=== PATIENT | female | born 1935 | race Caucasian/White ===

== ENCOUNTER → 2018-03-05 09:52 | Outpatient (CLI) | payer MEDICARE, SELFPAY ==
[2018-03-05 11:41] LABS: AST(SGOT) 19 U/L (15-37); Alanine Aminotransfer ALT/SGPT 15 U/L (13-56); Albumin, Serum 3.7 g/dL (3.2-5.0); Alkaline Phosphatase 67 U/L (45-117); Bilirubin, Direct 0.32 mg/dL (0.00-0.30); Cholesterol 133 mg/dL (200); Globulin 3.7 g/dL (2.2-4.2); High Density Lipoprotein 49 mg/dL; Protein, Total 7.4 g/dL (6.4-8.2); Triglycerides 89 mg/dL; Very Low Density Lipoprotein 18 mg/dL (5-40)
== END ==
PROVIDERS: Family Provider Family Medicine; PCP Family Medicine; Visit Provider Physician Assistant Medical
DX: E78.5 Hyperlipidemia, unspecified (principal); Z79.899 Other long term (current) drug therapy
CPT/HCPCS: 36415; 80061; 80076

== ENCOUNTER → 2018-04-23 06:53 | Outpatient (CLI) | payer MEDICARE, SELFPAY ==
--- NOTE | 2018-04-23 10:36 | STRESSREP ---
Stress Test Report Date: 04/23/2018 Procedure: Exercise tolerance test/imaging study Indications: CAD; status post CABG Consent: Per the patient Procedure: The patient exercised on a Francisco Javier protocol for 3 minutes and 14 seconds completing Stage I and 14 seconds of Stage II achieving a peak heart rate of 153 bpm (109 % predicted maximal heart rate) with a peak blood pressure 182/74 mmHg and a peak MET capacity of 4 METs. The baseline ECG demonstrated normal sinus rhythm; nonspecific ST segment abnormality. The peak exercise ECG demonstrated continued nonspecific ST segment abnormality. There were occasional PVCs pretest and during exercise and occasional PACs and PVCs during recovery. The functional capacity was considered decreased. There was no complaint of chest discomfort during exercise or recovery. The examination was discontinued secondary to dyspnea and leg discomfort. Impression: 1. Technically adequate (percent predicted maximal heart rate greater than 85%) exercise tolerance test 2. Peak exercise ECG continued nonspecific ST segment abnormality 3. There were occasional PVCs pretest and during exercise and occasional PACs and PVCs during recovery. 4. Nuclear images pending Myocardial perfusion imaging study: Technique: The patient was injected with 11 mCi of technetium 99m Cardiolite and subsequently rest SPECT Cardiolite nuclear imaging was obtained in the horizontal long, vertical long, and short axis views. The patient exercised on a Francisco Javier protocol for 3 minutes and 14 seconds minutes completing Stage I and 14 seconds of Stage II achieving a peak heart rate of 153 bpm (109 % predicted maximal heart rate) with a peak blood pressure 182/74 mmHg and a peak MET capacity of 4 METs. The patient was injected with 36 mCi of technetium 99m Cardiolite and subsequently stress SPECT Cardiolite nuclear imaging was obtained in the horizontal long, vertical long, and short axis views. A gated Cardiolite study at peak stress was obtained. Interpretation: Rest and stress SPECT Cardiolite nuclear imaging status post realignment, normalization, and attenuation correction, demonstrates the appearance of relative uniform tracer uptake and myocardial perfusion appearing within normal limits. There is end systolic thickening and brightening. The gated Cardiolite study demonstrates myocardial thickening and inward wall motion. The reported LVEF is 85 %. Impression: 1. Rest and stress SPECT Cardiolite nuclear imaging demonstrate relative uniform tracer uptake and myocardial perfusion appearing within normal limits. 2. The gated Cardiolite study reports an LVEF of 85 %. This note was generated with [employer] software. It may contain incorrect words, spelling, and punctuation that were not noted in checking the note before signing.
== END ==
PROVIDERS: Family Provider Family Medicine; PCP Family Medicine; Visit Provider Physician Assistant Medical
DX: I25.10 Atherosclerotic heart disease of native coronary artery without angina pectoris (principal); I10 Essential (primary) hypertension; E78.00 Pure hypercholesterolemia, unspecified
CPT/HCPCS: 78452; 93017; A9500; A4216

== ENCOUNTER → 2018-05-23 10:57 | Outpatient (CLI) | payer MEDICARE, SELFPAY ==
[2018-05-23 12:46] LABS: Anion Gap 4 (5-15); BUN 16 mg/dL (7-18); BUN/Creat Ratio 17.9 RATIO (10-20); Calcium,Total 9.6 mg/dL (8.5-10.1); Chloride 103 mmol/L (98-107); Creatinine, Serum 0.89 mg/dL (0.55-1.02); EST Glomerular Filtration Rate 64 mL/min (>60); Est Glom Filt Rate - Afr Amer 78 mL/min (>60); Glucose 85 mg/dL (74-106); Potassium 3.9 mmol/L (3.5-5.1); Sodium Level 137 mmol/L (136-145)
[2018-05-23 12:47] LABS: Microalbumin,Random Urine 5.5 mg/L (NO RANGE EST.); Microalbumin:Creatinine Ratio 9.6 mg/g CRE (<30 mg/g CRE)
== END ==
PROVIDERS: Family Provider Family Medicine; PCP Family Medicine; Visit Provider Family Medicine
DX: I25.10 Atherosclerotic heart disease of native coronary artery without angina pectoris (principal)
CPT/HCPCS: 36415; 80048; 82043; 82570

== ENCOUNTER → 2018-06-07 10:12 | Outpatient (CLI) | payer MEDICARE, SELFPAY | PROVIDERS: Family Provider Family Medicine; PCP Family Medicine; Visit Provider Family Medicine | DX: Z12.31 Encounter for screening mammogram for malignant neoplasm of breast (principal) | CPT/HCPCS: 77063; 77067 ==

== ENCOUNTER 2019-03-13 13:45 | Outpatient (RCR) | payer MEDICARE, SELFPAY ==
[2019-02-20 15:02] VITALS: BP 140/96; PULSE 56; RESP 16; TEMP 36.2; BMI 23.8
--- NOTE | 2019-02-20 17:10 | RAD_ITS ---
STUDY: X-RAY - RIGHT TIBIA AND FIBULA REASON FOR EXAM: Female, 83 years old. Right leg pain after fall TECHNIQUE: 2 view(s) of the tibia and fibula were obtained. COMPARISON: None. FINDINGS: Lying anterior to the distal tibial diaphysis, irregularity and induration of the subcu soft tissues with apparent laceration without foreign body. Osseous structures intact. RAD/Tibia & Fibula 2 Views IMPRESSION: Soft tissue injury without fracture. Electronically Signed: Ganga Fernandez MD at 12:19 EDT Tel , Service support ,
[2019-02-20 17:18] LABS: Absolute Lymphocyte Count 2.01 X10^3/ul (0.83-4.51); Absolute Neutrophil Count 4.1 X10^3/uL (2.0-7.7); Basophil# 0.01 X10^3/uL; Basophil% 0.1 % (0-1); Eosinophil# 0.11 X10^3/uL; Eosinophils% 1.6 % (0-5); Hematocrit 38.3 % (37-47); Hemoglobin 12.7 g/dl (12.0-15.0); Lymphocyte # 2.01 X10^3/ul (4.0); Lymphocyte % 29.7 % (19-41); Mean Corp Hgb Conc 33.2 g/gl (32-36); Mean Corpuscular Hgb 31.7 pg (27.0-32.0); Mean Corpuscular Volume 95.5 fL (81-99); Mean Platelet Vol. 10.2 fl (6.2-12.0); Monocyte% 7.4 % (0-10); Neutrophil # 4.13 X10^3/uL (2.7-7.7); Neutrophil % 61.1 % (47-70); Platelet Count 269 K/mm3 (150-450); RBC Distribution Width CV 13.2 % (11.6-14.6); RBC Distribution Width SD 46.2 fl (35.1-43.9); Red Blood Count 4.01 M/mm3 (4.2-5.4); White Blood Count 6.8 K/mm3 (4.4-11.0)
[2019-02-20 17:20] LABS: POSITIVE COUNT NO; POSITIVE DIFFERENTIAL NO; POSITIVE MORPHOLOGY NO
[2019-02-20 17:45] LABS: Erythrocyte Sedimentation Rate 21 mm/hr (0-30)
[2019-02-20 18:12] LABS: Anion Gap 5 (5-15); BUN 18 mg/dL (7-18); CRP < 2.90 mg/L (0.0-3.0); Calcium,Total 9.1 mg/dL (8.5-10.1); Chloride 104 mmol/L (98-107); EST Glomerular Filtration Rate 57 mL/min (>60); Est Glom Filt Rate - Afr Amer 69 mL/min (>60); Glucose 97 mg/dL (74-106); Potassium 4.3 mmol/L (3.5-5.1); Prealbumin 19.4 mg/dL (20.0-40.0); Sodium Level 138 mmol/L (136-145)
--- NOTE | 2019-02-21 16:51 | PCM.WC.HP ---
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 Status: Acute Current Visit: Yes Code(s): L97.912 - Non-pressure chronic ulcer of unspecified part of right lower leg with fat layer exposed Comment: s/p fall (2) Bilateral lower extremity edema Status: Acute Current Visit: Yes Code(s): R60.0 - Localized edema (3) Atherosclerotic heart disease of [place] coronary artery without angina pectoris Status: Chronic Current Visit: No Qualifiers: Code(s): I25.10 - Atherosclerotic heart disease of [place] coronary artery without angina pectoris Comment: 07/26/07 CABGx5, HELTON, LAD bridge diagonal, SVG to RCA and a sequential SVG to the Lateral Cx bridge high lateral Cx. (4) Essential (primary) hypertension Status: Chronic Current Visit: No Code(s): I10 - Essential (primary) hypertension (5) HLD (hyperlipidemia) Status: Chronic Current Visit: No Qualifiers: Code(s): E78.5 - Hyperlipidemia, unspecified History of Present Illness Date of Service: 02/20/19 Chief Complaint: Nonhealing ulcer to right lower extremity History of Wound: This is an 83-year-old white female who presents to the wound healing center today with complaint of nonhealing ulcer to right lower extremity. She presents with her and her daughter who is a nurse. She has a past medical history as listed above. The patient states that initially while she was in [place], she fell and hit the right lower extremity on the side of her bed on 01-25-19. At one point the site was sutured after she went to the emergency department. She states that she recently followed up with her primary care provider and they thought the site was infected so they placed her on Keflex and referred her to the wound healing center. She denies having cultures and/or x-rays or blood work done. She denies any systemic signs of infection, however she does note that the area surrounding the wound is somewhat reddened and that there is a foul smell to the area as well. The patient otherwise denies any fever, chills, nausea, vomiting, shortness of breath, chest pain or pressure, palpitations, orthopnea, lower extremity edema, syncope or presyncopal episodes. Past Medical History Past Medical History: Chronic Problems (Last Updated 03/12/18 @ 09:58 by SABIHA De Leon) Nonrheumatic mitral valve insufficiency (Chronic) Atherosclerotic heart disease of [place] coronary artery without angina pectoris (Chronic) 07/26/07 CABGx5, HELTON, LAD bridge diagonal, SVG to RCA and a sequential SVG to the Lateral Cx bridge high lateral Cx. Essential (primary) hypertension (Chronic) HLD (hyperlipidemia) (Chronic) Allergies/Adverse Reactions: Allergies No Known Allergies Allergy (Verified 03/12/18 09:30) Home Medications: Ambulatory Orders Medication Instructions Recorded aspirin 81 mg tablet,delayed 81 mg PO QDAY 03/04/18 release nitroglycerin 0.4 mg sublingual 0.4 mg SUBLINGUAL Q5M PRN 03/04/18 tablet calcium carbonate 600 mg calcium 600 mg PO ONCE tab 03/12/18 (1,500 mg) tablet folic acid 400 mcg tablet 0.4 mg PO QDAY #25 tab 03/12/18 metoprolol tartrate 25 mg tablet 25 mg PO BID #180 tab 08/20/18 ramipril 10 mg capsule 10 mg PO QDAY #90 cap 08/20/18 rosuvastatin 40 mg tablet 40 mg PO QDAY #90 tab 08/20/18 Smoking Status: Never smoker Review of Systems Constitutional: Denies: Chills, Fever, Weight Change Eyes: Denies: Pain, Vision Change HEENT: Denies: Difficulty Hearing, Difficulty Swallowing, Sinus Congestion Cardiovascular: Denies: Chest Pain, Palpitations Respiratory: Denies: Cough, Shortness of Breath Gastrointestinal: Denies: Diarrhea, Nausea, Vomiting Genitourinary: Denies: Dysuria, Hematuria Skin: Reports: Wounds - See HPI Endocrine: Denies: Heat/ Cold Intolerance, Polydipsia, Polyuria Hematologic/ Lymphatic: Denies: Easy Bruising, Easy Bleeding - Physical Exam Vital Signs Temp Pulse Resp BP 97.1 F L 56 L 16 140/96 H 02/20/19 15:02 02/20/19 15:02 02/20/19 15:02 02/20/19 15:02 General: Alert, Oriented x3, Cooperative, No apparent distress HEENT: Atraumatic, PERRLA, EOMI Oral: Moist Mucosa Neck: Supple, No JVD, Negative Carotid Bruits Lungs: Clear to auscultation, Normal air movement, No rhonchi, No wheeze, No rales Cardiovascular: Regular rate, Regular Rhythm, Normal S1, Normal S2, No murmurs Abdomen: Soft, Non Tender Extremities: No clubbing, No cyanosis, Capillary Refill Less than 3 Seconds, Diminished Peripheral Pulses - Diminished dorsal pedis pulses, Edema - +1 bilateral lower extremity edema Skin: Ulcer/ Wound - Ulceration to right anterior lower extremity with large amount of adherent slough in the center of the wound bed, 0.5 cm of erythema around the periwound bed edges, no fluctuance noted, some tenderness to palpation, foul odor present on exam as well. Wound Measurements and Assessment WC - Nurse 1 - General Ulcer Measurement Start: 02/20/19 15:01 Freq: Status: Active Protocol: Activity Type Activity Date Activity User E-Sign Co-Sign Detail Recorded Client Recorded Date Recorded By Document 02/20/19 15:02 DV [id number] 02/20/19 15:50 DV 02/20/19 15:02 Wound Center Nurse 1 [Ulcer Assessment] #1 Right Gil -Combined with other wound No -Current Size (cm) - Length 4.1 -Current Size (cm) - Width 3.0 -Current Size (cm) - Depth 0.3 -Total Square Cm 12.30 -Date of Last Picture (Recall this 02/20/19 field) -Photo Taken Yes -Epithelialization None Present -Tunneling No -Undermining/Tunneling No -Circular Undermining No -Classification - Thickness Full Thickness without Exposed Support Structure -Exudate Amt Large -Exudate Type Yellow/Green -Wound Margin Indistinct, Non -Visible -Granulation Amt None Present (0 %) -Granulation Quality N/A -Slough/Fibrin Yes -Necrosis Amt Large (67-100%) -Necrotic Tissue Type Adherent Slough -Structure Exposed Fat Layer Exposed None/Limited to Skin Breakdown -Texture ([place]-wound Skin Appearance) Assessed Localized Edema Scarring -Moisture ([place]-wound Skin Appearance Assessed ) Weeping -Color ([place]-wound Skin Appearance) Assessed Erythema -Temperature ([place]-wound Skin No Abnormality Appearance) (Pt Warm) -Tenderness on Palpation ([place]-wound No Skin Appearance) -Ulcer Cleansing Rinsed/ Irrigated with Saline -Foul Odor after Cleansing No -Anesthetic Used 4% Lidocaine Solution [Edema Assessment] -Lower Limb Edema Present Yes -Right Calf (cm) 36.0 -Right Ankle (cm) 23.5 -Left Calf (cm) 35.2 -Left Ankle (cm) 22.1 WC - Nurse 2 - General Ulcer CM Notes Start: 02/20/19 15:01 Freq: Status: Active Protocol: Activity Type Activity Date Activity User E-Sign Co-Sign Detail Recorded Client Recorded Date Recorded By Document 02/20/19 16:02 AN [id number] 02/20/19 16:13 AN 02/20/19 16:02 Wound Center Nurse 2 [Procedure/Treatment] #1 Right Gil -Time 16:02 -Correct Patient Yes -Correct Side, Site, Position Yes -Correct Procedure Yes -Procedure Performed Yes -Type of Procedure Debridement -Clinical Debridement Subcutaneous -Post Debridement Size (cm) - Length 2.2 -Post Debridement Size (cm) - Width 5.0 -Post Debridement Size (cm) - Depth 0.9 -Total Square Cm 11.00 -Wound/Ulcer Outcome Not Healed [See Physician Procedure note for Specifics] Pain Scale: 0-10 Numeric [Pain] -Is Patient Pain Free? Yes Musculoskeletal: No Muscle Wasting Neurological: Neuro grossly intact Psych/Mental Status: Normal Affect, Appropriate, Alert and oriented to time, place, person, mood and affect Debridement Note Post-Debridement Measurements/Treatment WC - Nurse 2 - General Ulcer CM Notes Start: 02/20/19 15:01 Freq: Status: Active Protocol: Activity Type Activity Date Activity User E-Sign Co-Sign Detail Recorded Client Recorded Date Recorded By Document 02/20/19 16:02 AN [email or web address] 02/20/19 16:13 AN 02/20/19 16:02 Wound Center Nurse 2 #1 Right Gil -Time 16:02 -Correct Patient Yes -Correct Side, Site, Position Yes -Correct Procedure Yes -Procedure Performed Yes -Type of Procedure Debridement -Clinical Debridement Subcutaneous -Post Debridement Size (cm) - Length 2.2 -Post Debridement Size (cm) - Width 5.0 -Post Debridement Size (cm) - Depth 0.9 -Total Square Cm 11.00 -Wound/Ulcer Outcome Not Healed Pain Scale: 0-10 Numeric Is Patient Pain Free? Yes Wound debrided: Right anterior lower extremity nonhealing ulcer Type of Debridement: Excisional debridement Anesthesia Used: 5% Lidocaine Gel Depth: in the subcutaneous layer Percentage of wound debrided: 100 Instrument Used: 7mm curette Tissue Removed: Slough and devitalized tissue Severity: Fat Layer Exposed Amount of bleeding with debridement: Mild Bleeding Controlled with: Pressure Patient tolerated procedure well Assessment/Plan Clinical Impression(s) from Imaging Studies Tibia/Fibula X-Ray 02/20/19 17:10 IMPRESSION: Soft tissue injury without fracture. Electronically Signed: Ganga Fernandez MD at 12:19 EDT Tel , Service support , Active Problems (Last Updated 03/12/18 @ 09:58 by SABIHA De Leon) 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 (Acute) s/p fall Bilateral lower extremity edema (Acute) Assessment: Nonhealing ulcer to right lower extremity status post fall on 01/25/2019. Decreased dorsal pedis pulses. Bilateral lower extremity edema Plan: The patient was seen and examined at the wound center today and was updated on the plan of care. A subcutaneous debridement was performed today. The patient tolerated the procedure well. The patients wound care will consist of: Applying Santyl cover with gauze and double Tubigrip for compression. Santyl was chosen due to the large amount of adherent slough present. Wound cultures were collected. Baseline bloodwork ordered. Vascular studies ordered. X-ray ordered as well as this was initially caused by a fall. Patient educated on the importance of diet on wound healing and instructed to increase protein and vitamin C intake. Patient verbalized understanding. Patient will follow up at wound healing center in one week or sooner if needed. Patient and family members were educated on signs of cellulitis and systemic infection that require urgent medical attention and to go to the emergency department if these symptoms occur. This note was generated with [employer] dictation software. It may contain incorrect words, spelling, and punctuation that were not noted in checking the note before signing. Code Visit Office Visits / Consults: [id number] OV L4 Est 111xxx-113xx: [id number] Renata subq tissue 20 sq cm/<
--- NOTE | 2019-02-21 16:57 | HP.PCM_ITS ---
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 Status: Acute Current Visit: Yes Code(s): L97.912 - Non-pressure chronic ulcer of unspecified part of right lower leg with fat layer exposed Comment: s/p fall (2) Bilateral lower extremity edema Status: Acute Current Visit: Yes Code(s): R60.0 - Localized edema (3) Atherosclerotic heart disease of [place] coronary artery without angina pectoris Status: Chronic Current Visit: No Qualifiers: Code(s): I25.10 - Atherosclerotic heart disease of [place] coronary artery without angina pectoris Comment: 07/26/07 CABGx5, [place], LAD bridge diagonal, SVG to RCA and a sequential SVG to the Lateral Cx bridge high lateral Cx. (4) Essential (primary) hypertension Status: Chronic Current Visit: No Code(s): I10 - Essential (primary) hypertension (5) HLD (hyperlipidemia) Status: Chronic Current Visit: No Qualifiers: Code(s): E78.5 - Hyperlipidemia, unspecified History of Present Illness Date of Service: 02/20/19 Chief Complaint: Nonhealing ulcer to right lower extremity History of Wound: This is an 83-year-old white female who presents to the wound healing center today with complaint of nonhealing ulcer to right lower extremity. She presents with her and her daughter who is a nurse. She has a past medical history as listed above. The patient states that initially while she was in [place], she fell and hit the right lower extremity on the side of her bed on 01-25-19. At one point the site was sutured after she went to the emergency department. She states that she recently followed up with her primary care provider and they thought the site was infected so they placed her on Keflex and referred her to the wound healing center. She denies having cultures and/or x-rays or blood work done. She denies any systemic signs of infection, however she does note that the area surrounding the wound is somewhat reddened and that there is a foul smell to the area as well. The patient otherwise denies any fever, chills, nausea, vomiting, shortness of breath, chest pain or pressure, palpitations, orthopnea, lower extremity edema, syncope or presyncopal episodes. Past Medical History Past Medical History: Chronic Problems (Last Updated 03/12/18 @ 09:58 by SABIHA De Leon) Nonrheumatic mitral valve insufficiency (Chronic) Atherosclerotic heart disease of [place] coronary artery without angina pectoris (Chronic) 07/26/07 CABGx5, HELTON, LAD bridge diagonal, SVG to RCA and a sequential SVG to the Lateral Cx bridge high lateral Cx. Essential (primary) hypertension (Chronic) HLD (hyperlipidemia) (Chronic) Allergies/Adverse Reactions: Allergies No Known Allergies Allergy (Verified 03/12/18 09:30) Home Medications: Ambulatory Orders Medication Instructions Recorded aspirin 81 mg tablet,delayed 81 mg PO QDAY 03/04/18 release nitroglycerin 0.4 mg sublingual 0.4 mg SUBLINGUAL Q5M PRN 03/04/18 tablet calcium carbonate 600 mg calcium 600 mg PO ONCE tab 03/12/18 (1,500 mg) tablet folic acid 400 mcg tablet 0.4 mg PO QDAY #25 tab 03/12/18 metoprolol tartrate 25 mg tablet 25 mg PO BID #180 tab 08/20/18 ramipril 10 mg capsule 10 mg PO QDAY #90 cap 08/20/18 rosuvastatin 40 mg tablet 40 mg PO QDAY #90 tab 08/20/18 Smoking Status: Never smoker Review of Systems Constitutional: Denies: Chills, Fever, Weight Change Eyes: Denies: Pain, Vision Change HEENT: Denies: Difficulty Hearing, Difficulty Swallowing, Sinus Congestion Cardiovascular: Denies: Chest Pain, Palpitations Respiratory: Denies: Cough, Shortness of Breath Gastrointestinal: Denies: Diarrhea, Nausea, Vomiting Genitourinary: Denies: Dysuria, Hematuria Skin: Reports: Wounds - See HPI Endocrine: Denies: Heat/ Cold Intolerance, Polydipsia, Polyuria Hematologic/ Lymphatic: Denies: Easy Bruising, Easy Bleeding - Physical Exam Vital Signs Temp Pulse Resp BP 97.1 F L 56 L 16 140/96 H 02/20/19 15:02 02/20/19 15:02 02/20/19 15:02 02/20/19 15:02 General: Alert, Oriented x3, Cooperative, No apparent distress HEENT: Atraumatic, PERRLA, EOMI Oral: Moist Mucosa Neck: Supple, No JVD, Negative Carotid Bruits Lungs: Clear to auscultation, Normal air movement, No rhonchi, No wheeze, No rales Cardiovascular: Regular rate, Regular Rhythm, Normal S1, Normal S2, No murmurs Abdomen: Soft, Non Tender Extremities: No clubbing, No cyanosis, Capillary Refill Less than 3 Seconds, Diminished Peripheral Pulses - Diminished dorsal pedis pulses, Edema - +1 bilateral lower extremity edema Skin: Ulcer/ Wound - Ulceration to right anterior lower extremity with large amount of adherent slough in the center of the wound bed, 0.5 cm of erythema around the periwound bed edges, no fluctuance noted, some tenderness to palpation, foul odor present on exam as well. Wound Measurements and Assessment WC - Nurse 1 - General Ulcer Measurement Start: 02/20/19 15:01 Freq: Status: Active Protocol: Activity Type Activity Date Activity User E-Sign Co-Sign Detail Recorded Client Recorded Date Recorded By Document 02/20/19 15:02 DV [id number] 02/20/19 15:50 DV 02/20/19 15:02 Wound Center Nurse 1 [Ulcer Assessment] #1 Right Gil -Combined with other wound No -Current Size (cm) - Length 4.1 -Current Size (cm) - Width 3.0 -Current Size (cm) - Depth 0.3 -Total Square Cm 12.30 -Date of Last Picture (Recall this 02/20/19 field) -Photo Taken Yes -Epithelialization None Present -Tunneling No -Undermining/Tunneling No -Circular Undermining No -Classification - Thickness Full Thickness without Exposed Support Structure -Exudate Amt Large -Exudate Type Yellow/Green -Wound Margin Indistinct, Non -Visible -Granulation Amt None Present (0 %) -Granulation Quality N/A -Slough/Fibrin Yes -Necrosis Amt Large (67-100%) -Necrotic Tissue Type Adherent Slough -Structure Exposed Fat Layer Exposed None/Limited to Skin Breakdown -Texture ([place]-wound Skin Appearance) Assessed Localized Edema Scarring -Moisture ([place]-wound Skin Appearance Assessed ) Weeping -Color ([place]-wound Skin Appearance) Assessed Erythema -Temperature ([place]-wound Skin No Abnormality Appearance) (Pt Warm) -Tenderness on Palpation ([place]-wound No Skin Appearance) -Ulcer Cleansing Rinsed/ Irrigated with Saline -Foul Odor after Cleansing No -Anesthetic Used 4% Lidocaine Solution [Edema Assessment] -Lower Limb Edema Present Yes -Right Calf (cm) 36.0 -Right Ankle (cm) 23.5 -Left Calf (cm) 35.2 -Left Ankle (cm) 22.1 WC - Nurse 2 - General Ulcer CM Notes Start: 02/20/19 15:01 Freq: Status: Active Protocol: Activity Type Activity Date Activity User E-Sign Co-Sign Detail Recorded Client Recorded Date Recorded By Document 02/20/19 16:02 AN [id number] 02/20/19 16:13 AN 02/20/19 16:02 Wound Center Nurse 2 [Procedure/Treatment] #1 Right Gil -Time 16:02 -Correct Patient Yes -Correct Side, Site, Position Yes -Correct Procedure Yes -Procedure Performed Yes -Type of Procedure Debridement -Clinical Debridement Subcutaneous -Post Debridement Size (cm) - Length 2.2 -Post Debridement Size (cm) - Width 5.0 -Post Debridement Size (cm) - Depth 0.9 -Total Square Cm 11.00 -Wound/Ulcer Outcome Not Healed [See Physician Procedure note for Specifics] Pain Scale: 0-10 Numeric [Pain] -Is Patient Pain Free? Yes Musculoskeletal: No Muscle Wasting Neurological: Neuro grossly intact Psych/Mental Status: Normal Affect, Appropriate, Alert and oriented to time, place, person, mood and affect Debridement Note Post-Debridement Measurements/Treatment WC - Nurse 2 - General Ulcer CM Notes Start: 02/20/19 15:01 Freq: Status: Active Protocol: Activity Type Activity Date Activity User E-Sign Co-Sign Detail Recorded Client Recorded Date Recorded By Document 02/20/19 16:02 AN [id number] 02/20/19 16:13 AN 02/20/19 16:02 Wound Center Nurse 2 #1 Right Gil -Time 16:02 -Correct Patient Yes -Correct Side, Site, Position Yes -Correct Procedure Yes -Procedure Performed Yes -Type of Procedure Debridement -Clinical Debridement Subcutaneous -Post Debridement Size (cm) - Length 2.2 -Post Debridement Size (cm) - Width 5.0 -Post Debridement Size (cm) - Depth 0.9 -Total Square Cm 11.00 -Wound/Ulcer Outcome Not Healed Pain Scale: 0-10 Numeric Is Patient Pain Free? Yes Wound debrided: Right anterior lower extremity nonhealing ulcer Type of Debridement: Excisional debridement Anesthesia Used: 5% Lidocaine Gel Depth: in the subcutaneous layer Percentage of wound debrided: 100 Instrument Used: 7mm curette Tissue Removed: Slough and devitalized tissue Severity: Fat Layer Exposed Amount of bleeding with debridement: Mild Bleeding Controlled with: Pressure Patient tolerated procedure well Assessment/Plan Clinical Impression(s) from Imaging Studies Tibia/Fibula X-Ray 02/20/19 17:10 IMPRESSION: Soft tissue injury without fracture. Electronically Signed: Ganga Fernandez MD at 12:19 EDT Tel , Service support , Active Problems (Last Updated 03/12/18 @ 09:58 by SABIHA De Leon) 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 (Acute) s/p fall Bilateral lower extremity edema (Acute) Assessment: Nonhealing ulcer to right lower extremity status post fall on 01/25/2019. Decreased dorsal pedis pulses. Bilateral lower extremity edema Plan: The patient was seen and examined at the wound center today and was updated on the plan of care. A subcutaneous debridement was performed today. The patient tolerated the procedure well. The patients wound care will consist of: Applying Santyl cover with gauze and double Tubigrip for compression. Santyl was chosen due to the large amount of adherent slough present. Wound cultures were collected. Baseline bloodwork ordered. Vascular studies ordered. X-ray ordered as well as this was initially caused by a fall. Patient educated on the importance of diet on wound healing and instructed to increase protein and vitamin C intake. Patient verbalized understanding. Patient will follow up at wound healing center in one week or sooner if needed. Patient and family members were educated on signs of cellulitis and systemic infection that require urgent medical attention and to go to the emergency department if these symptoms occur. This note was generated with [employer] dictation software. It may contain incorrect words, spelling, and punctuation that were not noted in checking the note before signing. Code Visit Office Visits / Consults: [id number] OV L4 Est 111xxx-113xx: [id number] Renata subq tissue 20 sq cm/<
[2019-02-21 19:12] LABS: M R Staph aureus DNA By PCR Negative (Negative); Probe Check PASS; Specimen Processing Control PASS; Staph aureus DNA By PCR NEGATIVE (Negative)
[2019-02-27 15:46] VITALS: BP 149/67; PULSE 56; RESP 18; TEMP 36.2; BMI 23.8
--- NOTE | 2019-02-27 20:22 | PCM.WC.PN ---
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 Status: Acute Code(s): L97.912 - Non-pressure chronic ulcer of unspecified part of right lower leg with fat layer exposed Comment: s/p fall (2) Bilateral lower extremity edema Status: Acute Code(s): R60.0 - Localized edema (3) Atherosclerotic heart disease of [place] coronary artery without angina pectoris Status: Chronic Qualifiers: Code(s): I25.10 - Atherosclerotic heart disease of [place] coronary artery without angina pectoris Comment: 07/26/07 CABGx5, HELTON, LAD bridge diagonal, SVG to RCA and a sequential SVG to the Lateral Cx bridge high lateral Cx. (4) Essential (primary) hypertension Status: Chronic Code(s): I10 - Essential (primary) hypertension (5) HLD (hyperlipidemia) Status: Chronic Qualifiers: Code(s): E78.5 - Hyperlipidemia, unspecified Type of Wound Date of Service: 02/27/19 Chief Complaint: Nonhealing ulcer to right lower extremity History of Wound: This is an 83-year-old white female who presents to the wound healing center today with complaint of nonhealing ulcer to right lower extremity. She presents with her and her daughter who is a nurse. She has a past medical history as listed above. The patient states that initially while she was in [place], she fell and hit the right lower extremity on the side of her bed on 01-25-19. At one point the site was sutured after she went to the emergency department. She states that she recently followed up with her primary care provider and they thought the site was infected so they placed her on Keflex and referred her to the wound healing center. She denies having cultures and/or x-rays or blood work done. She denies any systemic signs of infection, however she does note that the area surrounding the wound is somewhat reddened and that there is a foul smell to the area as well. The patient otherwise denies any fever, chills, nausea, vomiting, shortness of breath, chest pain or pressure, palpitations, orthopnea, lower extremity edema, syncope or presyncopal episodes. Progress of Wound: Less amount of slough this week, doing well with santyl, no increase in pain, drainage, denies any other signs of infection at this time. - Physical Exam Vital Signs Temp Pulse Resp BP 97.1 F L 56 L 18 149/67 H 02/27/19 15:46 02/27/19 15:46 02/27/19 15:46 02/27/19 15:46 General: Alert, Oriented x3, Cooperative, No apparent distress HEENT: PERRLA, EOMI Neck: Supple, No JVD Lungs: Clear to auscultation Cardiovascular: Regular rate, Regular Rhythm Abdomen: Soft, Non Tender Extremities: Capillary Refill Less than 3 Seconds, Diminished Peripheral Pulses - slightly diminshed DP pulses B/L, Edema - generalized BLLE edema Skin: Ulcer/ Wound - ulceration to right anterior lower extremity with adherant slough to wound bed, no tunneling or undermining at this time, so signs of obvious infection, no malodor Neurological: Neuro grossly intact Psych/Mental Status: Normal Affect, Appropriate, Alert and oriented to time, place, person, mood and affect Debridement Note Post-Debridement Measurements/Treatment WC - Nurse 2 - General Ulcer CM Notes Start: 02/20/19 15:01 Freq: Status: Active Protocol: Activity Type Activity Date Activity User E-Sign Co-Sign Detail Recorded Client Recorded Date Recorded By Document 02/20/19 16:02 AN [id number] 02/20/19 16:13 AN Document 02/27/19 16:23 AN [id number] 02/27/19 16:29 AN 02/20/19 02/27/19 16:02 16:23 Wound Center Nurse 2 #1 Right Gil -Time 16:02 16:25 -Correct Patient Yes Yes -Correct Side, Site, Position Yes Yes -Correct Procedure Yes Yes -Procedure Performed Yes Yes -Type of Procedure Debridement Debridement -Clinical Debridement Subcutaneous Subcutaneous -Post Debridement Size (cm) - Length 2.2 1.8 -Post Debridement Size (cm) - Width 5.0 4.0 -Post Debridement Size (cm) - Depth 0.9 1 -Total Square Cm 11.00 7.20 -Wound/Ulcer Outcome Not Healed Not Healed -Ulcer Cleansing Rinsed/ Irrigated with Saline -Foul Odor after Cleansing No -Bioengineered Tissue No -Bleeding Controlled with Pressure -Offloading No -Treatment Response Procedure Tolerated Well Pain Scale: 0-10 Numeric Is Patient Pain Free? Yes Yes Wound debrided: right lower extremity nonhealing ulcer Laterality: Right Type of Debridement: Excisional debridement Anesthesia Used: 5% Lidocaine Gel Depth: in the subcutaneous layer Percentage of wound debrided: 100 Instrument Used: 5mm curette Tissue Removed: slough and devitalized tissue Severity: Fat Layer Exposed Amount of bleeding with debridement: Mild Bleeding Controlled with: Pressure Patient tolerated procedure well Assessment/Plan Clinical Impression(s) from Imaging Studies Tibia/Fibula X-Ray 02/20/19 17:10 IMPRESSION: Soft tissue injury without fracture. Electronically Signed: Ganga Fernandez MD at 12:19 EDT Tel , Service support , Assessment: Nonhealing ulcer to right lower extremity status post fall on 01/25/2019. Decreased dorsal pedis pulses. Bilateral lower extremity edema Plan: The patient was seen and examined at the wound center today and was updated on the plan of care. A subcutaneous debridement was performed today. The patient tolerated the procedure well. The patients wound care will consist of: Applying Santyl cover with gauze and double Tubigrip for compression. Santyl was chosen due to the large amount of adherent slough present. Wound cultures were collected prior and showed morganella and anaerobic cocci, pt placed on cipro and finishing up course of keflex. Baseline bloodwork reviewed and essentially wnl, low prealbumin, instructed on 30 g of protien 3 times per day. Vascular studies pending. X-ray ordered as well as this was initially caused by a fall, reviewed and essentially negative. Patient educated on the importance of diet on wound healing and instructed to increase protein and vitamin C intake. Patient verbalized understanding. Patient will follow up at wound healing center in one week or sooner if needed. Patient and family members were educated on signs of cellulitis and systemic infection that require urgent medical attention and to go to the emergency department if these symptoms occur. This note was generated with [employer] dictation software. It may contain incorrect words, spelling, and punctuation that were not noted in checking the note before signing. Code Visit 111xxx-113xx: 26480 Renata subq tissue 20 sq cm/<
--- NOTE | 2019-03-04 08:27 | PN.PCM_ITS ---
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 Status: Acute Code(s): L97.912 - Non-pressure chronic ulcer of unspecified part of right lower leg with fat layer exposed Comment: s/p fall (2) Bilateral lower extremity edema Status: Acute Code(s): R60.0 - Localized edema (3) Atherosclerotic heart disease of [place] coronary artery without angina pectoris Status: Chronic Qualifiers: Code(s): I25.10 - Atherosclerotic heart disease of [place] coronary artery without angina pectoris Comment: 07/26/07 CABGx5, HEL[place], LAD bridge diagonal, SVG to RCA and a sequential SVG to the Lateral Cx bridge high lateral Cx. (4) Essential (primary) hypertension Status: Chronic Code(s): I10 - Essential (primary) hypertension (5) HLD (hyperlipidemia) Status: Chronic Qualifiers: Code(s): E78.5 - Hyperlipidemia, unspecified Type of Wound Date of Service: 02/27/19 Chief Complaint: Nonhealing ulcer to right lower extremity History of Wound: This is an 83-year-old white female who presents to the wound healing center today with complaint of nonhealing ulcer to right lower extremity. She presents with her and her daughter who is a nurse. She has a past medical history as listed above. The patient states that initially while she was in [place], she fell and hit the right lower extremity on the side of her bed on 01-25-19. At one point the site was sutured after she went to the emergency department. She states that she recently followed up with her primary care provider and they thought the site was infected so they placed her on Keflex and referred her to the wound healing center. She denies having cultures and/or x-rays or blood work done. She denies any systemic signs of infection, however she does note that the area surrounding the wound is somewhat reddened and that there is a foul smell to the area as well. The patient otherwise denies any fever, chills, nausea, vomiting, shortness of breath, chest pain or pressure, palpitations, orthopnea, lower extremity edema, syncope or presyncopal episodes. Progress of Wound: Less amount of slough this week, doing well with santyl, no increase in pain, drainage, denies any other signs of infection at this time. - Physical Exam Vital Signs Temp Pulse Resp BP 97.1 F L 56 L 18 149/67 H 02/27/19 15:46 02/27/19 15:46 02/27/19 15:46 02/27/19 15:46 General: Alert, Oriented x3, Cooperative, No apparent distress HEENT: PERRLA, EOMI Neck: Supple, No JVD Lungs: Clear to auscultation Cardiovascular: Regular rate, Regular Rhythm Abdomen: Soft, Non Tender Extremities: Capillary Refill Less than 3 Seconds, Diminished Peripheral Pulses - slightly diminshed DP pulses B/L, Edema - generalized BLLE edema Skin: Ulcer/ Wound - ulceration to right anterior lower extremity with adherant slough to wound bed, no tunneling or undermining at this time, so signs of obvious infection, no malodor Neurological: Neuro grossly intact Psych/Mental Status: Normal Affect, Appropriate, Alert and oriented to time, place, person, mood and affect Debridement Note Post-Debridement Measurements/Treatment WC - Nurse 2 - General Ulcer CM Notes Start: 02/20/19 15:01 Freq: Status: Active Protocol: Activity Type Activity Date Activity User E-Sign Co-Sign Detail Recorded Client Recorded Date Recorded By Document 02/20/19 16:02 AN [id number] 02/20/19 16:13 AN Document 02/27/19 16:23 AN [id number] 02/27/19 16:29 AN 02/20/19 02/27/19 16:02 16:23 Wound Center Nurse 2 #1 Right Gil -Time 16:02 16:25 -Correct Patient Yes Yes -Correct Side, Site, Position Yes Yes -Correct Procedure Yes Yes -Procedure Performed Yes Yes -Type of Procedure Debridement Debridement -Clinical Debridement Subcutaneous Subcutaneous -Post Debridement Size (cm) - Length 2.2 1.8 -Post Debridement Size (cm) - Width 5.0 4.0 -Post Debridement Size (cm) - Depth 0.9 1 -Total Square Cm 11.00 7.20 -Wound/Ulcer Outcome Not Healed Not Healed -Ulcer Cleansing Rinsed/ Irrigated with Saline -Foul Odor after Cleansing No -Bioengineered Tissue No -Bleeding Controlled with Pressure -Offloading No -Treatment Response Procedure Tolerated Well Pain Scale: 0-10 Numeric Is Patient Pain Free? Yes Yes Wound debrided: right lower extremity nonhealing ulcer Laterality: Right Type of Debridement: Excisional debridement Anesthesia Used: 5% Lidocaine Gel Depth: in the subcutaneous layer Percentage of wound debrided: 100 Instrument Used: 5mm curette Tissue Removed: slough and devitalized tissue Severity: Fat Layer Exposed Amount of bleeding with debridement: Mild Bleeding Controlled with: Pressure Patient tolerated procedure well Assessment/Plan Clinical Impression(s) from Imaging Studies Tibia/Fibula X-Ray 02/20/19 17:10 IMPRESSION: Soft tissue injury without fracture. Electronically Signed: aGnga Fernandez MD at 12:19 EDT Tel , Service support , Assessment: Nonhealing ulcer to right lower extremity status post fall on 01/25/2019. Decreased dorsal pedis pulses. Bilateral lower extremity edema Plan: The patient was seen and examined at the wound center today and was updated on the plan of care. A subcutaneous debridement was performed today. The patient tolerated the procedure well. The patients wound care will consist of: Applying Santyl cover with gauze and double Tubigrip for compression. Santyl was chosen due to the large amount of adherent slough present. Wound cultures were collected prior and showed morganella and anaerobic cocci, pt placed on cipro and finishing up course of keflex. Baseline bloodwork reviewed and essentially wnl, low prealbumin, instructed on 30 g of protien 3 times per day. Vascular studies pending. X-ray ordered as well as this was initially caused by a fall, reviewed and essentially negative. Patient educated on the importance of diet on wound healing and instructed to increase protein and vitamin C intake. Patient verbalized understanding. Patient will follow up at wound healing center in one week or sooner if needed. Patient and family members were educated on signs of cellulitis and systemic infection that require urgent medical attention and to go to the emergency department if these symptoms occur. This note was generated with [employer] dictation software. It may contain incorrect words, spelling, and punctuation that were not noted in checking the note before signing. Code Visit 111xxx-[id number]: [id number] Renata subq tissue 20 sq cm/<
--- NOTE | 2019-03-06 09:58 | VDLE_ITS ---
Reason For Study: nonhealing pressure wound RIGHT LEFT CFV is compressible, spontaneous, phasic, CFV is compressible, spontaneous, phasic, competent and demonstrates normal competent, and demonstrates normal augmentation. augmentation. FV is compressible, spontaneous, phasic, FV is compressible, spontaneous, phasic, competent and demonstrates normal competent and demonstrates normal augmentation. augmentation. POP V is compressible, spontaneous, phasic, POP V is compressible, spontaneous, phasic, competent and demonstrates normal competent and demonstrates normal augmentation. augmentation. T/P Trunk is compressible. T/P Trunk is compressible. PTV is compressible. PTV is compressible. RT PerV is compressible. LT PerV is compressible. S-F Junction is competent. S-F Junction is competent. GSV is competent. GSV is harvested. SSV is competent. SSV is competent. Procedure Exam performed in department. The exam was diagnostic. Patient was scanned in reverse Trendelenburg position during reflux assessment. Interpretation Summary Deep veins of the lower extremities are bilaterally patent and compressible segmentally. There is no evidence of deep vein thrombosis on either side. Valvular competence appears intact within the proximal deep venous systems bilaterally. Sapheno-femoral junctions are bilaterally competent . The right greater saphenous vein is patent and competent. The left greater saphenous vein is absent, having been previously harvested. Small saphenous veins are patent and competent bilaterally. Ordering Physician: Simba La Performed By: Martin Jerome RVT
--- NOTE | 2019-03-06 09:59 | ART_ITS ---
Reason For Study: nonhealing pressure wound Left Segmental Pressures Left brachial= 164mmHg. Left posterior tibial artery = 176mmHg. Left dorsalis pedis artery = 169mmHg. Left digit = 151 mmHg. The left dorsalis pedis waveforms are triphasic. The left posterior tibial artery waveforms are triphasic. Right Segmental Pressures Right brachial= 170mmHg. Right posterior tibial artery = 186mmHg. Right dorsalis pedis artery = 176mmHg. Right digit = 161 mmHg. The right dorsalis pedis waveforms are triphasic. The right posterior tibial artery waveforms are triphasic. Indices The right ankle brachial index by the dorsalis pedis is 1.04. The right ankle brachial index by the posterior tibial artery is 1.09. The right digital-brachial index is .95. The left ankle brachial index by the dorsalis pedis is .99. The left ankle brachial index by the posterior tibial artery is 1.04. The left digital-brachial index is .89. Interpretation Summary Triphasic Doppler waveforms are noted at ankle level bilaterally. Pulse-volume recording waveform amplitudes appear satisfactory at all levels bilaterally, including low-thigh, calf, ankle, and digital levels. Resting ankle-brachial indices are normal bilaterally. Digital-brachial indices are bilaterally normal. There is no evidence of significant arterial occlusive disease in the lower extremities bilaterally. Ordering Physician: Simba La Performed By: SINDY OWENS RVKat
[2019-03-06 14:31] VITALS: BP 133/66; PULSE 54; RESP 19; TEMP 36.1; BMI 23.8
--- NOTE | 2019-03-06 19:25 | PCM.WC.PN ---
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 Status: Acute Current Visit: Yes Code(s): L97.912 - Non-pressure chronic ulcer of unspecified part of right lower leg with fat layer exposed Comment: s/p fall (2) Bilateral lower extremity edema Status: Acute Current Visit: Yes Code(s): R60.0 - Localized edema (3) Atherosclerotic heart disease of [place] coronary artery without angina pectoris Status: Chronic Current Visit: No Qualifiers: Code(s): I25.10 - Atherosclerotic heart disease of [place] coronary artery without angina pectoris Comment: 07/26/07 CABGx5, HELTON, LAD bridge diagonal, SVG to RCA and a sequential SVG to the Lateral Cx bridge high lateral Cx. (4) Essential (primary) hypertension Status: Chronic Current Visit: No Code(s): I10 - Essential (primary) hypertension (5) HLD (hyperlipidemia) Status: Chronic Current Visit: No Qualifiers: Code(s): E78.5 - Hyperlipidemia, unspecified Type of Wound Date of Service: 03/06/19 Chief Complaint: Nonhealing ulcer to right lower extremity History of Wound: This is an 83-year-old white female who presents to the wound healing center today with complaint of nonhealing ulcer to right lower extremity. She presents with her and her daughter who is a nurse. She has a past medical history as listed above. The patient states that initially while she was in [place], she fell and hit the right lower extremity on the side of her bed on 01-25-19. At one point the site was sutured after she went to the emergency department. She states that she recently followed up with her primary care provider and they thought the site was infected so they placed her on Keflex and referred her to the wound healing center. She denies having cultures and/or x-rays or blood work done. She denies any systemic signs of infection, however she does note that the area surrounding the wound is somewhat reddened and that there is a foul smell to the area as well. The patient otherwise denies any fever, chills, nausea, vomiting, shortness of breath, chest pain or pressure, palpitations, orthopnea, lower extremity edema, syncope or presyncopal episodes. Progress of Wound: Less amount of slough this week, doing well with santyl, no increase in pain, drainage, denies any other signs of infection at this time. Tolerating antibiotics well - Physical Exam Vital Signs Temp Pulse Resp BP 96.9 F L 54 L 19 H 133/66 H 03/06/19 14:31 03/06/19 14:31 03/06/19 14:31 03/06/19 14:31 General: Alert, Oriented x3, Cooperative, No apparent distress HEENT: PERRLA, EOMI Neck: Supple, No JVD, Negative Carotid Bruits Lungs: Clear to auscultation Cardiovascular: Regular rate, Regular Rhythm Abdomen: Soft, Non Tender Extremities: Capillary Refill Less than 3 Seconds, Edema - Generalized bilateral lower extremity edema Skin: Ulcer/ Wound - Ulceration to right anterior lower extremity with adherent slough, no signs of infection at this time, no redness streaking drainage or odor. Wound Measurements and Assessment WC - Nurse 1 - General Ulcer Measurement Start: 02/20/19 15:01 Freq: Status: Active Protocol: Activity Type Activity Date Activity User E-Sign Co-Sign Detail Recorded Client Recorded Date Recorded By Document 03/06/19 14:31 DL [id number] 03/06/19 14:38 DL 03/06/19 14:31 Wound Center Nurse 1 [Ulcer Assessment] #1 Right Gil -Current Size (cm) - Length 0.9 -Current Size (cm) - Width 2.1 -Current Size (cm) - Depth 0.5 -Total Square Cm 1.89 -Photo Taken No -Epithelialization Medium 34-66% -Exudate Amt Small -Exudate Type Serosanguineous -Wound Margin Distinct, Outline Attached -Granulation Amt Medium (34-66%) -Granulation Quality Red -Necrosis Amt Medium (34-66%) -Necrotic Tissue Type Adherent Slough -Structure Exposed N/A -Texture ([place]-wound Skin Appearance) Localized Edema Scarring -Moisture ([place]-wound Skin Appearance Dry/Scaly ) -Color ([place]-wound Skin Appearance) Hemosiderin Staining -Temperature ([place]-wound Skin No Abnormality Appearance) (Pt Warm) -Tenderness on Palpation ([place]-wound No Skin Appearance) -Ulcer Cleansing Wound Cleanser -Foul Odor after Cleansing No -Anesthetic Used 4% Lidocaine Solution [Edema Assessment] -Right Calf (cm) 32.2 -Right Ankle (cm) 20 WC - Nurse 2 - General Ulcer CM Notes Start: 02/20/19 15:01 Freq: Status: Active Protocol: Activity Type Activity Date Activity User E-Sign Co-Sign Detail Recorded Client Recorded Date Recorded By Document 03/06/19 14:45 DL [id number] 03/06/19 14:54 DL 03/06/19 14:45 Wound Center Nurse 2 [Procedure/Treatment] #1 Right Gil -Time 14:47 -Correct Patient Yes -Correct Side, Site, Position Yes -Correct Procedure Yes -Procedure Performed Yes -Type of Procedure Debridement -Clinical Debridement Subcutaneous -Post Debridement Size (cm) - Length 1.3 -Post Debridement Size (cm) - Width 3.0 -Post Debridement Size (cm) - Depth 0.9 -Total Square Cm 3.90 -Wound/Ulcer Outcome Not Healed -Ulcer Cleansing Rinsed/ Irrigated with Saline -Foul Odor after Cleansing No -Bioengineered Tissue No -Bleeding Controlled with Pressure [See Physician Procedure note for Specifics] Pain Scale: 0-10 Numeric [Pain] -Is Patient Pain Free? Yes Neurological: Neuro grossly intact Psych/Mental Status: Normal Affect, Appropriate, Alert and oriented to time, place, person, mood and affect Debridement Note Post-Debridement Measurements/Treatment WC - Nurse 2 - General Ulcer CM Notes Start: 02/20/19 15:01 Freq: Status: Active Protocol: Activity Type Activity Date Activity User E-Sign Co-Sign Detail Recorded Client Recorded Date Recorded By Document 02/20/19 16:02 AN [id number] 02/20/19 16:13 AN Document 02/27/19 16:23 AN [id number] 02/27/19 16:29 AN Document 03/06/19 14:45 DL [id number] 03/06/19 14:54 DL 02/20/19 02/27/19 03/06/19 16:02 16:23 14:45 Wound Center Nurse 2 #1 Right Gil -Time 16:02 16:25 14:47 -Correct Patient Yes Yes Yes -Correct Side, Site, Position Yes Yes Yes -Correct Procedure Yes Yes Yes -Procedure Performed Yes Yes Yes -Type of Procedure Debridement Debridement Debridement -Clinical Debridement Subcutaneous Subcutaneous Subcutaneous -Post Debridement Size (cm) - Length 2.2 1.8 1.3 -Post Debridement Size (cm) - Width 5.0 4.0 3.0 -Post Debridement Size (cm) - Depth 0.9 1 0.9 -Total Square Cm 11.00 7.20 3.90 -Wound/Ulcer Outcome Not Healed Not Healed Not Healed -Ulcer Cleansing Rinsed/ Rinsed/ Irrigated with Irrigated with Saline Saline -Foul Odor after Cleansing No No -Bioengineered Tissue No No -Bleeding Controlled with Pressure Pressure -Offloading No -Treatment Response Procedure Tolerated Well Pain Scale: 0-10 Numeric Is Patient Pain Free? Yes Yes Yes Wound debrided: Nonhealing ulcer to right anterior lower extremities Laterality: Right Type of Debridement: Excisional debridement Anesthesia Used: 5% Lidocaine Gel Depth: in the subcutaneous layer Percentage of wound debrided: 100 Instrument Used: 5mm curette Tissue Removed: Slough and devitalized tissue Severity: Fat Layer Exposed Amount of bleeding with debridement: Mild Bleeding Controlled with: Pressure Patient tolerated procedure well Assessment/Plan Clinical Impression(s) from Imaging Studies Tibia/Fibula X-Ray 02/20/19 17:10 IMPRESSION: Soft tissue injury without fracture. Electronically Signed: Ganga Fernandez MD at 12:19 EDT Tel , Service support , Active Problems (Last Updated 03/12/18 @ 09:58 by SABIHA De Leon) 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 (Acute) s/p fall Bilateral lower extremity edema (Acute) Assessment: Nonhealing ulcer to right lower extremity status post fall on 01/25/2019. Decreased dorsal pedis pulses. Bilateral lower extremity edema Plan: The patient was seen and examined at the wound center today and was updated on the plan of care. A subcutaneous debridement was performed today. The patient tolerated the procedure well. The patients wound care will consist of: Applying Santyl cover with gauze and double Tubigrip for compression. Santyl was chosen due to the large amount of adherent slough present. Given the depth, will apply for snap VAC. Wound cultures were collected prior and showed morganella and anaerobic cocci, pt placed on cipro and finished course of keflex. Baseline bloodwork reviewed and essentially wnl, low prealbumin, instructed on 30 g of protien 3 times per day. Vascular studies showed no venous insufficiency or arterial occlusive disease. X-ray ordered as well as this was initially caused by a fall, reviewed and essentially negative. Patient educated on the importance of diet on wound healing and instructed to increase protein and vitamin C intake. Patient verbalized understanding. Patient will follow up at wound healing center in one week or sooner if needed. Patient and family members were educated on signs of cellulitis and systemic infection that require urgent medical attention and to go to the emergency department if these symptoms occur. This note was generated with [employer] dictation software. It may contain incorrect words, spelling, and punctuation that were not noted in checking the note before signing. Code Visit 111xxx-113xx: 12984 Renata subq tissue 20 sq cm/<
--- NOTE | 2019-03-09 12:30 | PN.PCM_ITS ---
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 Status: Acute Current Visit: Yes Code(s): L97.912 - Non-pressure chronic ulcer of unspecified part of right lower leg with fat layer exposed Comment: s/p fall (2) Bilateral lower extremity edema Status: Acute Current Visit: Yes Code(s): R60.0 - Localized edema (3) Atherosclerotic heart disease of [place] coronary artery without angina pectoris Status: Chronic Current Visit: No Qualifiers: Code(s): I25.10 - Atherosclerotic heart disease of [place] coronary artery without angina pectoris Comment: 07/26/07 CABGx5, [place], LAD bridge diagonal, SVG to RCA and a sequential SVG to the Lateral Cx bridge high lateral Cx. (4) Essential (primary) hypertension Status: Chronic Current Visit: No Code(s): I10 - Essential (primary) hypertension (5) HLD (hyperlipidemia) Status: Chronic Current Visit: No Qualifiers: Code(s): E78.5 - Hyperlipidemia, unspecified Type of Wound Date of Service: 03/06/19 Chief Complaint: Nonhealing ulcer to right lower extremity History of Wound: This is an 83-year-old white female who presents to the wound healing center today with complaint of nonhealing ulcer to right lower extremity. She presents with her and her daughter who is a nurse. She has a past medical history as listed above. The patient states that initially while she was in [place], she fell and hit the right lower extremity on the side of her bed on 01-25-19. At one point the site was sutured after she went to the emergency department. She states that she recently followed up with her primary care provider and they thought the site was infected so they placed her on Keflex and referred her to the wound healing center. She denies having cultures and/or x-rays or blood work done. She denies any systemic signs of infection, however she does note that the area surrounding the wound is somewhat reddened and that there is a foul smell to the area as well. The patient otherwise denies any fever, chills, nausea, vomiting, shortness of breath, chest pain or pressure, palpitations, orthopnea, lower extremity edema, syncope or presyncopal episodes. Progress of Wound: Less amount of slough this week, doing well with santyl, no increase in pain, drainage, denies any other signs of infection at this time. Tolerating antibiotics well - Physical Exam Vital Signs Temp Pulse Resp BP 96.9 F L 54 L 19 H 133/66 H 03/06/19 14:31 03/06/19 14:31 03/06/19 14:31 03/06/19 14:31 General: Alert, Oriented x3, Cooperative, No apparent distress HEENT: PERRLA, EOMI Neck: Supple, No JVD, Negative Carotid Bruits Lungs: Clear to auscultation Cardiovascular: Regular rate, Regular Rhythm Abdomen: Soft, Non Tender Extremities: Capillary Refill Less than 3 Seconds, Edema - Generalized bilateral lower extremity edema Skin: Ulcer/ Wound - Ulceration to right anterior lower extremity with adherent slough, no signs of infection at this time, no redness streaking drainage or odor. Wound Measurements and Assessment WC - Nurse 1 - General Ulcer Measurement Start: 02/20/19 15:01 Freq: Status: Active Protocol: Activity Type Activity Date Activity User E-Sign Co-Sign Detail Recorded Client Recorded Date Recorded By Document 03/06/19 14:31 DL [id number] 03/06/19 14:38 DL 03/06/19 14:31 Wound Center Nurse 1 [Ulcer Assessment] #1 Right Gil -Current Size (cm) - Length 0.9 -Current Size (cm) - Width 2.1 -Current Size (cm) - Depth 0.5 -Total Square Cm 1.89 -Photo Taken No -Epithelialization Medium 34-66% -Exudate Amt Small -Exudate Type Serosanguineous -Wound Margin Distinct, Outline Attached -Granulation Amt Medium (34-66%) -Granulation Quality Red -Necrosis Amt Medium (34-66%) -Necrotic Tissue Type Adherent Slough -Structure Exposed N/A -Texture ([place]-wound Skin Appearance) Localized Edema Scarring -Moisture ([place]-wound Skin Appearance Dry/Scaly ) -Color ([place]-wound Skin Appearance) Hemosiderin Staining -Temperature ([place]-wound Skin No Abnormality Appearance) (Pt Warm) -Tenderness on Palpation ([place]-wound No Skin Appearance) -Ulcer Cleansing Wound Cleanser -Foul Odor after Cleansing No -Anesthetic Used 4% Lidocaine Solution [Edema Assessment] -Right Calf (cm) 32.2 -Right Ankle (cm) 20 WC - Nurse 2 - General Ulcer CM Notes Start: 02/20/19 15:01 Freq: Status: Active Protocol: Activity Type Activity Date Activity User E-Sign Co-Sign Detail Recorded Client Recorded Date Recorded By Document 03/06/19 14:45 DL [id number] 03/06/19 14:54 DL 03/06/19 14:45 Wound Center Nurse 2 [Procedure/Treatment] #1 Right Gil -Time 14:47 -Correct Patient Yes -Correct Side, Site, Position Yes -Correct Procedure Yes -Procedure Performed Yes -Type of Procedure Debridement -Clinical Debridement Subcutaneous -Post Debridement Size (cm) - Length 1.3 -Post Debridement Size (cm) - Width 3.0 -Post Debridement Size (cm) - Depth 0.9 -Total Square Cm 3.90 -Wound/Ulcer Outcome Not Healed -Ulcer Cleansing Rinsed/ Irrigated with Saline -Foul Odor after Cleansing No -Bioengineered Tissue No -Bleeding Controlled with Pressure [See Physician Procedure note for Specifics] Pain Scale: 0-10 Numeric [Pain] -Is Patient Pain Free? Yes Neurological: Neuro grossly intact Psych/Mental Status: Normal Affect, Appropriate, Alert and oriented to time, place, person, mood and affect Debridement Note Post-Debridement Measurements/Treatment WC - Nurse 2 - General Ulcer CM Notes Start: 02/20/19 15:01 Freq: Status: Active Protocol: Activity Type Activity Date Activity User E-Sign Co-Sign Detail Recorded Client Recorded Date Recorded By Document 02/20/19 16:02 AN [id number] 02/20/19 16:13 AN Document 02/27/19 16:23 AN [id number] 02/27/19 16:29 AN Document 03/06/19 14:45 DL [id number] 03/06/19 14:54 DL 02/20/19 02/27/19 03/06/19 16:02 16:23 14:45 Wound Center Nurse 2 #1 Right Gil -Time 16:02 16:25 14:47 -Correct Patient Yes Yes Yes -Correct Side, Site, Position Yes Yes Yes -Correct Procedure Yes Yes Yes -Procedure Performed Yes Yes Yes -Type of Procedure Debridement Debridement Debridement -Clinical Debridement Subcutaneous Subcutaneous Subcutaneous -Post Debridement Size (cm) - Length 2.2 1.8 1.3 -Post Debridement Size (cm) - Width 5.0 4.0 3.0 -Post Debridement Size (cm) - Depth 0.9 1 0.9 -Total Square Cm 11.00 7.20 3.90 -Wound/Ulcer Outcome Not Healed Not Healed Not Healed -Ulcer Cleansing Rinsed/ Rinsed/ Irrigated with Irrigated with Saline Saline -Foul Odor after Cleansing No No -Bioengineered Tissue No No -Bleeding Controlled with Pressure Pressure -Offloading No -Treatment Response Procedure Tolerated Well Pain Scale: 0-10 Numeric Is Patient Pain Free? Yes Yes Yes Wound debrided: Nonhealing ulcer to right anterior lower extremities Laterality: Right Type of Debridement: Excisional debridement Anesthesia Used: 5% Lidocaine Gel Depth: in the subcutaneous layer Percentage of wound debrided: 100 Instrument Used: 5mm curette Tissue Removed: Slough and devitalized tissue Severity: Fat Layer Exposed Amount of bleeding with debridement: Mild Bleeding Controlled with: Pressure Patient tolerated procedure well Assessment/Plan Clinical Impression(s) from Imaging Studies Tibia/Fibula X-Ray 02/20/19 17:10 IMPRESSION: Soft tissue injury without fracture. Electronically Signed: Ganga Fernandez MD at 12:19 EDT Tel , Service support , Active Problems (Last Updated 03/12/18 @ 09:58 by SABIHA De Leon) 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 (Acute) s/p fall Bilateral lower extremity edema (Acute) Assessment: Nonhealing ulcer to right lower extremity status post fall on 01/25/2019. Decreased dorsal pedis pulses. Bilateral lower extremity edema Plan: The patient was seen and examined at the wound center today and was updated on the plan of care. A subcutaneous debridement was performed today. The patient tolerated the procedure well. The patients wound care will consist of: Applying Santyl cover with gauze and double Tubigrip for compression. Santyl was chosen due to the large amount of adherent slough present. Given the depth, will apply for snap VAC. Wound cultures were collected prior and showed morganella and anaerobic cocci, pt placed on cipro and finished course of keflex. Baseline bloodwork reviewed and essentially wnl, low prealbumin, instructed on 30 g of protien 3 times per day. Vascular studies showed no venous insufficiency or arterial occlusive disease. X-ray ordered as well as this was initially caused by a fall, reviewed and essentially negative. Patient educated on the importance of diet on wound healing and instructed to increase protein and vitamin C intake. Patient verbalized understanding. Patient will follow up at wound healing center in one week or sooner if needed. Patient and family members were educated on signs of cellulitis and systemic infection that require urgent medical attention and to go to the emergency department if these symptoms occur. This note was generated with [employer] dictation software. It may contain incorrect words, spelling, and punctuation that were not noted in checking the note before signing. Code Visit 111xxx-113xx: [id number] Renata subq tissue 20 sq cm/<
[2019-03-13 14:04] VITALS: BP 161/73; PULSE 63; RESP 18; TEMP 36.1; BMI 23.8
--- NOTE | 2019-03-13 17:30 | PCM.WC.PN ---
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 Status: Acute Current Visit: Yes Code(s): L97.912 - Non-pressure chronic ulcer of unspecified part of right lower leg with fat layer exposed Comment: s/p fall (2) Bilateral lower extremity edema Status: Acute Current Visit: Yes Code(s): R60.0 - Localized edema (3) Atherosclerotic heart disease of [place] coronary artery without angina pectoris Status: Chronic Current Visit: No Qualifiers: Code(s): I25.10 - Atherosclerotic heart disease of [place] coronary artery without angina pectoris Comment: 07/26/07 CABGx5, HELTON, LAD bridge diagonal, SVG to RCA and a sequential SVG to the Lateral Cx bridge high lateral Cx. (4) Essential (primary) hypertension Status: Chronic Current Visit: No Code(s): I10 - Essential (primary) hypertension (5) HLD (hyperlipidemia) Status: Chronic Current Visit: No Qualifiers: Code(s): E78.5 - Hyperlipidemia, unspecified Type of Wound Date of Service: 03/13/19 Chief Complaint: Nonhealing ulcer to right lower extremity History of Wound: This is an 83-year-old white female who presents to the wound healing center today with complaint of nonhealing ulcer to right lower extremity. She presents with her and her daughter who is a nurse. She has a past medical history as listed above. The patient states that initially while she was in [place], she fell and hit the right lower extremity on the side of her bed on 01-25-19. At one point the site was sutured after she went to the emergency department. She states that she recently followed up with her primary care provider and they thought the site was infected so they placed her on Keflex and referred her to the wound healing center. She denies having cultures and/or x-rays or blood work done. She denies any systemic signs of infection, however she does note that the area surrounding the wound is somewhat reddened and that there is a foul smell to the area as well. The patient otherwise denies any fever, chills, nausea, vomiting, shortness of breath, chest pain or pressure, palpitations, orthopnea, lower extremity edema, syncope or presyncopal episodes. Progress of Wound: Less amount of slough this week, doing well with santyl, no increase in pain, drainage, denies any other signs of infection at this time. Tolerating antibiotics well - Physical Exam Vital Signs Temp Pulse Resp BP 97.0 F L 63 18 161/73 H 03/13/19 14:04 03/13/19 14:04 03/13/19 14:04 03/13/19 14:04 General: Alert, Oriented x3, Cooperative, No apparent distress HEENT: PERRLA, EOMI Neck: Supple, No JVD, Negative Carotid Bruits Lungs: Clear to auscultation Cardiovascular: Regular rate, Regular Rhythm Abdomen: Soft, Non Tender Extremities: No edema, Capillary Refill Less than 3 Seconds Skin: Ulcer/ Wound - Ulceration to right anterior lower extremity with adherent slough to wound bed, otherwise no signs of obvious infection at this time, no redness streaking or warmth Wound Measurements and Assessment WC - Nurse 1 - General Ulcer Measurement Start: 02/20/19 15:01 Freq: Status: Active Protocol: Activity Type Activity Date Activity User E-Sign Co-Sign Detail Recorded Client Recorded Date Recorded By Document 03/13/19 14:04 [place] [id number] 03/13/19 14:20 [place] 03/13/19 14:04 Wound Center Nurse 1 [Ulcer Assessment] #1 Right Gil -Current Size (cm) - Length 0.9 -Current Size (cm) - Width 2.5 -Current Size (cm) - Depth 0.2 -Total Square Cm 2.25 -Exudate Amt Small -Exudate Type Serosanguineous -Wound Margin Flat & Intact -Granulation Amt Medium (34-66%) -Granulation Quality Pale [place] -Necrosis Amt Medium (34-66%) -Necrotic Tissue Type Adherent Slough -Texture ([place]-wound Skin Appearance) Assessed -Moisture ([place]-wound Skin Appearance Assessed ) -Color ([place]-wound Skin Appearance) Assessed Hemosiderin Staining -Temperature ([place]-wound Skin No Abnormality Appearance) (Pt Warm) -Tenderness on Palpation ([place]-wound No Skin Appearance) -Ulcer Cleansing Rinsed/ Irrigated with Saline -Foul Odor after Cleansing No -Anesthetic Used 5% Lidocaine Gel [Edema Assessment] -Right Calf (cm) 34 -Right Ankle (cm) 21 WC - Nurse 2 - General Ulcer CM Notes Start: 02/20/19 15:01 Freq: Status: Active Protocol: Activity Type Activity Date Activity User E-Sign Co-Sign Detail Recorded Client Recorded Date Recorded By Document 03/13/19 14:42 AN [id number] 03/13/19 14:45 AN 03/13/19 14:42 Wound Center Nurse 2 [Procedure/Treatment] #1 Right Gil -Time 14:44 -Correct Patient Yes -Correct Side, Site, Position Yes -Correct Procedure Yes -Procedure Performed Yes -Type of Procedure Debridement -Clinical Debridement Subcutaneous -Post Debridement Size (cm) - Length 1 -Post Debridement Size (cm) - Width 2 -Post Debridement Size (cm) - Depth 0.5 -Total Square Cm 2 -Wound/Ulcer Outcome Not Healed -Ulcer Cleansing Rinsed/ Irrigated with Saline -Foul Odor after Cleansing No -Bioengineered Tissue No -Bleeding Controlled with Pressure -Treatment Response Procedure Tolerated Well [See Physician Procedure note for Specifics] Pain Scale: 0-10 Numeric [Pain] -Is Patient Pain Free? Yes Neurological: Neuro grossly intact Psych/Mental Status: Normal Affect, Appropriate, Alert and oriented to time, place, person, mood and affect Debridement Note Post-Debridement Measurements/Treatment WC - Nurse 2 - General Ulcer CM Notes Start: 02/20/19 15:01 Freq: Status: Active Protocol: Activity Type Activity Date Activity User E-Sign Co-Sign Detail Recorded Client Recorded Date Recorded By Document 02/20/19 16:02 AN [id number] 02/20/19 16:13 AN Document 02/27/19 16:23 AN [id number] 02/27/19 16:29 AN Document 03/06/19 14:45 DL [id number] 03/06/19 14:54 DL Document 03/13/19 14:42 AN [id number] 03/13/19 14:45 AN 02/20/19 02/27/19 03/06/19 16:02 16:23 14:45 Wound Center Nurse 2 #1 Right Gil -Time 16:02 16:25 14:47 -Correct Patient Yes Yes Yes -Correct Side, Site, Position Yes Yes Yes -Correct Procedure Yes Yes Yes -Procedure Performed Yes Yes Yes -Type of Procedure Debridement Debridement Debridement -Clinical Debridement Subcutaneous Subcutaneous Subcutaneous -Post Debridement Size (cm) - Length 2.2 1.8 1.3 -Post Debridement Size (cm) - Width 5.0 4.0 3.0 -Post Debridement Size (cm) - Depth 0.9 1 0.9 -Total Square Cm 11.00 7.20 3.90 -Wound/Ulcer Outcome Not Healed Not Healed Not Healed -Ulcer Cleansing Rinsed/ Rinsed/ Irrigated with Irrigated with Saline Saline -Foul Odor after Cleansing No No -Bioengineered Tissue No No -Bleeding Controlled with Pressure Pressure -Offloading No -Treatment Response Procedure Tolerated Well Pain Scale: 0-10 Numeric Is Patient Pain Free? Yes Yes Yes 03/13/19 14:42 Wound Center Nurse 2 #1 Right Gil -Time 14:44 -Correct Patient Yes -Correct Side, Site, Position Yes -Correct Procedure Yes -Procedure Performed Yes -Type of Procedure Debridement -Clinical Debridement Subcutaneous -Post Debridement Size (cm) - Length 1 -Post Debridement Size (cm) - Width 2 -Post Debridement Size (cm) - Depth 0.5 -Total Square Cm 2 -Wound/Ulcer Outcome Not Healed -Ulcer Cleansing Rinsed/ Irrigated with Saline -Foul Odor after Cleansing No -Bioengineered Tissue No -Bleeding Controlled with Pressure -Offloading -Treatment Response Procedure Tolerated Well Pain Scale: 0-10 Numeric Is Patient Pain Free? Yes Wound debrided: Right anterior lower extremity ulcer Laterality: Right Type of Debridement: Excisional debridement Anesthesia Used: 5% Lidocaine Gel Depth: in the subcutaneous layer Percentage of wound debrided: 100 Instrument Used: 5mm curette Tissue Removed: Slough and devitalized tissue Severity: Fat Layer Exposed Amount of bleeding with debridement: Mild Bleeding Controlled with: Pressure Patient tolerated procedure well Assessment/Plan Clinical Impression(s) from Imaging Studies Tibia/Fibula X-Ray 02/20/19 17:10 IMPRESSION: Soft tissue injury without fracture. Electronically Signed: Ganga Fernandez MD at 12:19 EDT Tel , Service support , Active Problems (Last Updated 03/12/18 @ 09:58 by SABIHA De Leon) 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 (Acute) s/p fall Bilateral lower extremity edema (Acute) Assessment: Nonhealing ulcer to right lower extremity status post fall on 01/25/2019. Decreased dorsal pedis pulses. Bilateral lower extremity edema Plan: The patient was seen and examined at the wound center today and was updated on the plan of care. A subcutaneous debridement was performed today. The patient tolerated the procedure well. The patients wound care will consist of: Applying Santyl cover with gauze and double Tubigrip for compression. Santyl was chosen due to the large amount of adherent slough present. Given the delayed wound healing, will apply for the use of pure apply a.m. Wound cultures were collected prior and showed morganella and anaerobic cocci, pt completed Cipro and finished course of keflex. Baseline bloodwork reviewed and essentially wnl, low prealbumin, instructed on 30 g of protien 3 times per day. Vascular studies showed no venous insufficiency or arterial occlusive disease. X-ray ordered as well as this was initially caused by a fall, reviewed and essentially negative. Patient educated on the importance of diet on wound healing and instructed to increase protein and vitamin C intake. Patient verbalized understanding. Patient will follow up at wound healing center in one week or sooner if needed. Patient and family members were educated on signs of cellulitis and systemic infection that require urgent medical attention and to go to the emergency department if these symptoms occur. This note was generated with [employer]azz dictation software. It may contain incorrect words, spelling, and punctuation that were not noted in checking the note before signing. Code Visit 111xxx-113xx: 03420 Renata subq tissue 20 sq cm/<
--- NOTE | 2019-03-13 17:35 | PN.PCM_ITS ---
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 Status: Acute Current Visit: Yes Code(s): L97.912 - Non-pressure chronic ulcer of unspecified part of right lower leg with fat layer exposed Comment: s/p fall (2) Bilateral lower extremity edema Status: Acute Current Visit: Yes Code(s): R60.0 - Localized edema (3) Atherosclerotic heart disease of [place] coronary artery without angina pectoris Status: Chronic Current Visit: No Qualifiers: Code(s): I25.10 - Atherosclerotic heart disease of [place] coronary artery without angina pectoris Comment: 07/26/07 CABGx5, [place], LAD bridge diagonal, SVG to RCA and a sequential SVG to the Lateral Cx bridge high lateral Cx. (4) Essential (primary) hypertension Status: Chronic Current Visit: No Code(s): I10 - Essential (primary) hypertension (5) HLD (hyperlipidemia) Status: Chronic Current Visit: No Qualifiers: Code(s): E78.5 - Hyperlipidemia, unspecified Type of Wound Date of Service: 03/13/19 Chief Complaint: Nonhealing ulcer to right lower extremity History of Wound: This is an 83-year-old white female who presents to the wound healing center today with complaint of nonhealing ulcer to right lower extremity. She presents with her and her daughter who is a nurse. She has a past medical history as listed above. The patient states that initially while she was in [place], she fell and hit the right lower extremity on the side of her bed on 01-25-19. At one point the site was sutured after she went to the emergency department. She states that she recently followed up with her primary care provider and they thought the site was infected so they placed her on Keflex and referred her to the wound healing center. She denies having cultures and/or x-rays or blood work done. She denies any systemic signs of infection, however she does note that the area surrounding the wound is somewhat reddened and that there is a foul smell to the area as well. The patient otherwise denies any fever, chills, nausea, vomiting, shortness of breath, chest pain or pressure, palpitations, orthopnea, lower extremity edema, syncope or presyncopal episodes. Progress of Wound: Less amount of slough this week, doing well with santyl, no increase in pain, drainage, denies any other signs of infection at this time. Tolerating antibiotics well - Physical Exam Vital Signs Temp Pulse Resp BP 97.0 F L 63 18 161/73 H 03/13/19 14:04 03/13/19 14:04 03/13/19 14:04 03/13/19 14:04 General: Alert, Oriented x3, Cooperative, No apparent distress HEENT: PERRLA, EOMI Neck: Supple, No JVD, Negative Carotid Bruits Lungs: Clear to auscultation Cardiovascular: Regular rate, Regular Rhythm Abdomen: Soft, Non Tender Extremities: No edema, Capillary Refill Less than 3 Seconds Skin: Ulcer/ Wound - Ulceration to right anterior lower extremity with adherent slough to wound bed, otherwise no signs of obvious infection at this time, no redness streaking or warmth Wound Measurements and Assessment WC - Nurse 1 - General Ulcer Measurement Start: 02/20/19 15:01 Freq: Status: Active Protocol: Activity Type Activity Date Activity User E-Sign Co-Sign Detail Recorded Client Recorded Date Recorded By Document 03/13/19 14:04 RI [id number] 03/13/19 14:20 RI 03/13/19 14:04 Wound Center Nurse 1 [Ulcer Assessment] #1 Right Gil -Current Size (cm) - Length 0.9 -Current Size (cm) - Width 2.5 -Current Size (cm) - Depth 0.2 -Total Square Cm 2.25 -Exudate Amt Small -Exudate Type Serosanguineous -Wound Margin Flat & Intact -Granulation Amt Medium (34-66%) -Granulation Quality Pale [place] -Necrosis Amt Medium (34-66%) -Necrotic Tissue Type Adherent Slough -Texture ([place]-wound Skin Appearance) Assessed -Moisture ([place]-wound Skin Appearance Assessed ) -Color ([place]-wound Skin Appearance) Assessed Hemosiderin Staining -Temperature ([place]-wound Skin No Abnormality Appearance) (Pt Warm) -Tenderness on Palpation ([place]-wound No Skin Appearance) -Ulcer Cleansing Rinsed/ Irrigated with Saline -Foul Odor after Cleansing No -Anesthetic Used 5% Lidocaine Gel [Edema Assessment] -Right Calf (cm) 34 -Right Ankle (cm) 21 WC - Nurse 2 - General Ulcer CM Notes Start: 02/20/19 15:01 Freq: Status: Active Protocol: Activity Type Activity Date Activity User E-Sign Co-Sign Detail Recorded Client Recorded Date Recorded By Document 03/13/19 14:42 AN [id number] 03/13/19 14:45 AN 03/13/19 14:42 Wound Center Nurse 2 [Procedure/Treatment] #1 Right Gil -Time 14:44 -Correct Patient Yes -Correct Side, Site, Position Yes -Correct Procedure Yes -Procedure Performed Yes -Type of Procedure Debridement -Clinical Debridement Subcutaneous -Post Debridement Size (cm) - Length 1 -Post Debridement Size (cm) - Width 2 -Post Debridement Size (cm) - Depth 0.5 -Total Square Cm 2 -Wound/Ulcer Outcome Not Healed -Ulcer Cleansing Rinsed/ Irrigated with Saline -Foul Odor after Cleansing No -Bioengineered Tissue No -Bleeding Controlled with Pressure -Treatment Response Procedure Tolerated Well [See Physician Procedure note for Specifics] Pain Scale: 0-10 Numeric [Pain] -Is Patient Pain Free? Yes Neurological: Neuro grossly intact Psych/Mental Status: Normal Affect, Appropriate, Alert and oriented to time, place, person, mood and affect Debridement Note Post-Debridement Measurements/Treatment WC - Nurse 2 - General Ulcer CM Notes Start: 02/20/19 15:01 Freq: Status: Active Protocol: Activity Type Activity Date Activity User E-Sign Co-Sign Detail Recorded Client Recorded Date Recorded By Document 02/20/19 16:02 AN [id number] 02/20/19 16:13 AN Document 02/27/19 16:23 AN [id number] 02/27/19 16:29 AN Document 03/06/19 14:45 DL [id number] 03/06/19 14:54 DL Document 03/13/19 14:42 AN [id number] 03/13/19 14:45 AN 02/20/19 02/27/19 03/06/19 16:02 16:23 14:45 Wound Center Nurse 2 #1 Right Gil -Time 16:02 16:25 14:47 -Correct Patient Yes Yes Yes -Correct Side, Site, Position Yes Yes Yes -Correct Procedure Yes Yes Yes -Procedure Performed Yes Yes Yes -Type of Procedure Debridement Debridement Debridement -Clinical Debridement Subcutaneous Subcutaneous Subcutaneous -Post Debridement Size (cm) - Length 2.2 1.8 1.3 -Post Debridement Size (cm) - Width 5.0 4.0 3.0 -Post Debridement Size (cm) - Depth 0.9 1 0.9 -Total Square Cm 11.00 7.20 3.90 -Wound/Ulcer Outcome Not Healed Not Healed Not Healed -Ulcer Cleansing Rinsed/ Rinsed/ Irrigated with Irrigated with Saline Saline -Foul Odor after Cleansing No No -Bioengineered Tissue No No -Bleeding Controlled with Pressure Pressure -Offloading No -Treatment Response Procedure Tolerated Well Pain Scale: 0-10 Numeric Is Patient Pain Free? Yes Yes Yes 03/13/19 14:42 Wound Center Nurse 2 #1 Right Gil -Time 14:44 -Correct Patient Yes -Correct Side, Site, Position Yes -Correct Procedure Yes -Procedure Performed Yes -Type of Procedure Debridement -Clinical Debridement Subcutaneous -Post Debridement Size (cm) - Length 1 -Post Debridement Size (cm) - Width 2 -Post Debridement Size (cm) - Depth 0.5 -Total Square Cm 2 -Wound/Ulcer Outcome Not Healed -Ulcer Cleansing Rinsed/ Irrigated with Saline -Foul Odor after Cleansing No -Bioengineered Tissue No -Bleeding Controlled with Pressure -Offloading -Treatment Response Procedure Tolerated Well Pain Scale: 0-10 Numeric Is Patient Pain Free? Yes Wound debrided: Right anterior lower extremity ulcer Laterality: Right Type of Debridement: Excisional debridement Anesthesia Used: 5% Lidocaine Gel Depth: in the subcutaneous layer Percentage of wound debrided: 100 Instrument Used: 5mm curette Tissue Removed: Slough and devitalized tissue Severity: Fat Layer Exposed Amount of bleeding with debridement: Mild Bleeding Controlled with: Pressure Patient tolerated procedure well Assessment/Plan Clinical Impression(s) from Imaging Studies Tibia/Fibula X-Ray 02/20/19 17:10 IMPRESSION: Soft tissue injury without fracture. Electronically Signed: Ganga Fernandez MD at 12:19 EDT Tel , Service support , Active Problems (Last Updated 03/12/18 @ 09:58 by SABIHA De Leon) 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 (Acute) s/p fall Bilateral lower extremity edema (Acute) Assessment: Nonhealing ulcer to right lower extremity status post fall on 01/25/2019. Decreased dorsal pedis pulses. Bilateral lower extremity edema Plan: The patient was seen and examined at the wound center today and was updated on the plan of care. A subcutaneous debridement was performed today. The patient tolerated the procedure well. The patients wound care will consist of: Applying Santyl cover with gauze and double Tubigrip for compression. Santyl was chosen due to the large amount of adherent slough present. Given the delayed wound healing, will apply for the use of pure apply a.m. Wound cultures were collected prior and showed morganella and anaerobic cocci, pt completed Cipro and finished course of keflex. Baseline bloodwork reviewed and essentially wnl, low prealbumin, instructed on 30 g of protien 3 times per day. Vascular studies showed no venous insufficiency or arterial occlusive disease. X-ray ordered as well as this was initially caused by a fall, reviewed and essentially negative. Patient educated on the importance of diet on wound healing and instructed to increase protein and vitamin C intake. Patient verbalized understanding. Patient will follow up at wound healing center in one week or sooner if needed. Patient and family members were educated on signs of cellulitis and systemic infection that require urgent medical attention and to go to the emergency department if these symptoms occur. This note was generated with [employer] dictation software. It may contain incorrect words, spelling, and punctuation that were not noted in checking the note before signing. Code Visit 111xxx-113xx: 64954 Renata subq tissue 20 sq cm/<
== END 2019-03-14 23:59 ==
LOC: WC 13:45
PROVIDERS: Family Provider Family Medicine; PCP Family Medicine; Referring Provider Nurse Practitioner Family; Visit Provider Nurse Practitioner Family
DX: L97.812 Non-pressure chronic ulcer of other part of right lower leg with fat layer exposed (principal); I10 Essential (primary) hypertension; R60.0 Localized edema; I25.10 Atherosclerotic heart disease of native coronary artery without angina pectoris; Z95.1 Presence of aortocoronary bypass graft; E78.5 Hyperlipidemia, unspecified; Z79.899 Other long term (current) drug therapy; Z79.82 Long term (current) use of aspirin; R09.89 Other specified symptoms and signs involving the circulatory and respiratory systems
CPT/HCPCS: 11042; 11045; 36415; 73590; 80048; 84134; 85025; 85652; 86140; 87070; 87075; 87077; 87186; 87205; 87640; 93923; 93970; 99202; G0463

== ENCOUNTER → 2019-04-02 09:19 | Outpatient (CLI) | payer MEDICARE, SELFPAY ==
[2019-03-28 16:07] VITALS: BMI 23.8
[2019-04-02 10:28] LABS: AST(SGOT) 23 U/L (15-37); Alanine Aminotransfer ALT/SGPT 17 U/L (13-56); Albumin, Serum 3.4 g/dL (3.2-5.0); Alkaline Phosphatase 72 U/L (45-117); Bilirubin, Direct 0.28 mg/dL (0.00-0.30); Cholesterol 145 mg/dL (200); Globulin 4.2 g/dL (2.2-4.2); High Density Lipoprotein 51 mg/dL; Protein, Total 7.6 g/dL (6.4-8.2); Triglycerides 115 mg/dL; Very Low Density Lipoprotein 23 mg/dL (5-40)
== END ==
PROVIDERS: Family Provider Family Medicine; PCP Family Medicine; Referring Provider Internal Medicine Cardiovascular Disease; Visit Provider Internal Medicine Cardiovascular Disease
DX: I25.10 Atherosclerotic heart disease of native coronary artery without angina pectoris (principal); E78.5 Hyperlipidemia, unspecified
CPT/HCPCS: 36415; 80061; 80076

== ENCOUNTER 2019-04-04 13:45 | Outpatient (RCR) | payer MEDICARE, SELFPAY ==
[2019-03-15 01:19] VITALS: BP 161/73; PULSE 63; RESP 18; TEMP 36.1
[2019-03-20 13:21] VITALS: BP 148/90; PULSE 60; RESP 18; TEMP 36; BMI 23.8
--- NOTE | 2019-03-20 17:08 | PCM.WC.PN ---
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 Status: Acute Current Visit: Yes Code(s): L97.912 - Non-pressure chronic ulcer of unspecified part of right lower leg with fat layer exposed Comment: s/p fall (2) Bilateral lower extremity edema Status: Acute Current Visit: Yes Code(s): R60.0 - Localized edema (3) Essential (primary) hypertension Status: Chronic Current Visit: No Code(s): I10 - Essential (primary) hypertension (4) HLD (hyperlipidemia) Status: Chronic Current Visit: No Qualifiers: Code(s): E78.5 - Hyperlipidemia, unspecified Type of Wound Date of Service: 03/20/19 Chief Complaint: Nonhealing ulcer to right lower extremity History of Wound: This is an 83-year-old white female who presents to the wound healing center today with complaint of nonhealing ulcer to right lower extremity. She presents with her and her daughter who is a nurse. She has a past medical history as listed above. The patient states that initially while she was in [place], she fell and hit the right lower extremity on the side of her bed on 01-25-19. At one point the site was sutured after she went to the emergency department. She states that she recently followed up with her primary care provider and they thought the site was infected so they placed her on Keflex and referred her to the wound healing center. She denies having cultures and/or x-rays or blood work done. She denies any systemic signs of infection, however she does note that the area surrounding the wound is somewhat reddened and that there is a foul smell to the area as well. The patient otherwise denies any fever, chills, nausea, vomiting, shortness of breath, chest pain or pressure, palpitations, orthopnea, lower extremity edema, syncope or presyncopal episodes. Progress of Wound: Less amount of slough this week, doing well with santyl, no increase in pain, drainage, denies any other signs of infection at this time.Edinly # 1 applied today - Physical Exam Vital Signs Temp Pulse Resp BP 96.8 F L 60 18 148/90 H 03/20/19 13:21 03/20/19 13:21 03/20/19 13:21 03/20/19 13:21 General: Alert, Oriented x3, Cooperative, No apparent distress HEENT: Atraumatic Oral: Moist Mucosa Lungs: Clear to auscultation Cardiovascular: Regular rate Abdomen: Soft, Non Tender Extremities: No clubbing, No cyanosis, Edema - Generalized bilateral lower extremity edema Skin: Ulcer/ Wound - Ulceration present to right anterior lower extremity with adherent slough, otherwise no signs of obvious infection at this time. No redness, streaking, or purulent drainage. Wound Measurements and Assessment WC - Nurse 1 - General Ulcer Measurement Start: 03/20/19 13:21 Freq: Status: Active Protocol: Activity Type Activity Date Activity User E-Sign Co-Sign Detail Recorded Client Recorded Date Recorded By Document 03/20/19 13:21 NE [id number] 03/20/19 13:27 NE 03/20/19 13:21 Wound Center Nurse 1 [Ulcer Assessment] #1 Right Gil -Combined with other wound No -Current Size (cm) - Length 0.5 -Current Size (cm) - Width 1.4 -Current Size (cm) - Depth 0.2 -Total Square Cm 0.70 -Photo Taken No -Tunneling No -Undermining/Tunneling No -Wound Margin Flat & Intact -Granulation Amt Small (1-33%) -Granulation Quality Pale [place] -Necrosis Amt Large (67-100%) -Necrotic Tissue Type Adherent Slough -Texture ([place]-wound Skin Appearance) Assessed -Moisture ([place]-wound Skin Appearance Assessed ) -Color ([place]-wound Skin Appearance) Assessed Hemosiderin Staining -Temperature ([place]-wound Skin No Abnormality Appearance) (Pt Warm) -Tenderness on Palpation ([place]-wound No Skin Appearance) -Ulcer Cleansing Rinsed/ Irrigated with Saline -Foul Odor after Cleansing No -Anesthetic Used 5% Lidocaine Gel [Edema Assessment] -Right Calf (cm) 34.5 -Right Ankle (cm) 21 WC - Nurse 2 - General Ulcer CM Notes Start: 03/20/19 13:21 Freq: Status: Active Protocol: Activity Type Activity Date Activity User E-Sign Co-Sign Detail Recorded Client Recorded Date Recorded By Document 03/20/19 13:33 AN [id number] 03/20/19 13:39 AN 03/20/19 13:33 Wound Center Nurse 2 [Procedure/Treatment] #1 Right Gil -Time 13:36 -Correct Patient Yes -Correct Side, Site, Position Yes -Correct Procedure Yes -Procedure Performed Yes -Type of Procedure Debridement -Clinical Debridement Subcutaneous -Post Debridement Size (cm) - Length 0.6 -Post Debridement Size (cm) - Width 1.1 -Post Debridement Size (cm) - Depth 0.2 -Total Square Cm 0.66 -Wound/Ulcer Outcome Not Healed -Ulcer Cleansing Rinsed/ Irrigated with Saline -Foul Odor after Cleansing No -Bioengineered Tissue Yes -Type of bioengineered Tissue [id number] -Expiration Date 05/26/21 -Product Lot Number [id number] -Percent Used 100 -Saline Lot Number [id number] -Bleeding Controlled with Pressure -Treatment Response Procedure Tolerated Well [See Physician Procedure note for Specifics] Pain Scale: 0-10 Numeric [Pain] -Is Patient Pain Free? Yes Neurological: Neuro grossly intact Psych/Mental Status: Normal Affect, Appropriate, Alert and oriented to time, place, person, mood and affect Debridement Note Post-Debridement Measurements/Treatment WC - Nurse 2 - General Ulcer CM Notes Start: 03/20/19 13:21 Freq: Status: Active Protocol: Activity Type Activity Date Activity User E-Sign Co-Sign Detail Recorded Client Recorded Date Recorded By Document 03/20/19 13:33 AN [id number] 03/20/19 13:39 AN 03/20/19 13:33 Wound Center Nurse 2 #1 Right Gil -Time 13:36 -Correct Patient Yes -Correct Side, Site, Position Yes -Correct Procedure Yes -Procedure Performed Yes -Type of Procedure Debridement -Clinical Debridement Subcutaneous -Post Debridement Size (cm) - Length 0.6 -Post Debridement Size (cm) - Width 1.1 -Post Debridement Size (cm) - Depth 0.2 -Total Square Cm 0.66 -Wound/Ulcer Outcome Not Healed -Ulcer Cleansing Rinsed/ Irrigated with Saline -Foul Odor after Cleansing No -Bioengineered Tissue Yes -Type of bioengineered Tissue [id number] -Expiration Date 05/26/21 -Product Lot Number [id number] -Percent Used 100 -Saline Lot Number [id number] -Bleeding Controlled with Pressure -Treatment Response Procedure Tolerated Well Pain Scale: 0-10 Numeric Is Patient Pain Free? Yes Wound debrided: Right anterior lower extremity ulceration Type of Debridement: Excisional debridement Anesthesia Used: 5% Lidocaine Gel Depth: in the subcutaneous layer Percentage of wound debrided: 100 Instrument Used: 5mm curette Tissue Removed: Slough and devitalized tissue Severity: Fat Layer Exposed Amount of bleeding with debridement: Mild Bleeding Controlled with: Pressure Patient tolerated procedure well Assessment/Plan Active Problems (Last Updated 03/12/18 @ 09:58 by SABIHA De Leon) 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 (Acute) s/p fall Bilateral lower extremity edema (Acute) Assessment: Nonhealing ulcer to right lower extremity status post fall on 01/25/2019. Decreased dorsal pedis pulses. Bilateral lower extremity edema Plan: The patient was seen and examined at the wound center today and was updated on the plan of care. A subcutaneous debridement was performed today. The patient tolerated the procedure well. The patients wound care will consist of: Pure apply a.m. #1 was applied after subcutaneous debridement, it was then covered with the wound veil and a thin layer of hydrogel, and secured with Steri-Strips, 100% of the product was used with 0% waste. Patient tolerated the procedure well. Double Tubigrip for compression. Santyl was chosen due to the large amount of adherent slough present. Wound cultures were collected prior and showed morganella and anaerobic cocci, pt completed Cipro and finished course of keflex. Baseline bloodwork reviewed and essentially wnl, low prealbumin, instructed on 30 g of protien 3 times per day. Vascular studies showed no venous insufficiency or arterial occlusive disease. X-ray ordered as well as this was initially caused by a fall, reviewed and essentially negative. Patient educated on the importance of diet on wound healing and instructed to increase protein and vitamin C intake. Patient verbalized understanding. Patient will follow up at wound healing center in one week or sooner if needed. Patient and family members were educated on signs of cellulitis and systemic infection that require urgent medical attention and to go to the emergency department if these symptoms occur. This note was generated with [employer] dictation software. It may contain incorrect words, spelling, and punctuation that were not noted in checking the note before signing. Code Visit 150xxx-152xx: 29836 Skin sub graft trnk/arm/leg
--- NOTE | 2019-03-21 17:11 | PN.PCM_ITS ---
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 Status: Acute Current Visit: Yes Code(s): L97.912 - Non-pressure chronic ulcer of unspecified part of right lower leg with fat layer exposed Comment: s/p fall (2) Bilateral lower extremity edema Status: Acute Current Visit: Yes Code(s): R60.0 - Localized edema (3) Essential (primary) hypertension Status: Chronic Current Visit: No Code(s): I10 - Essential (primary) hypertension (4) HLD (hyperlipidemia) Status: Chronic Current Visit: No Qualifiers: Code(s): E78.5 - Hyperlipidemia, unspecified Type of Wound Date of Service: 03/20/19 Chief Complaint: Nonhealing ulcer to right lower extremity History of Wound: This is an 83-year-old white female who presents to the wound healing center today with complaint of nonhealing ulcer to right lower extremity. She presents with her and her daughter who is a nurse. She has a past medical history as listed above. The patient states that initially while she was in [place], she fell and hit the right lower extremity on the side of her bed on 01-25-19. At one point the site was sutured after she went to the emergency department. She states that she recently followed up with her primary care provider and they thought the site was infected so they placed her on Keflex and referred her to the wound healing center. She denies having cultures and/or x-rays or blood work done. She denies any systemic signs of infection, however she does note that the area surrounding the wound is somewhat reddened and that there is a foul smell to the area as well. The patient otherwise denies any fever, chills, nausea, vomiting, shortness of breath, chest pain or pressure, palpitations, orthopnea, lower extremity edema, syncope or presyncopal episodes. Progress of Wound: Less amount of slough this week, doing well with santyl, no increase in pain, drainage, denies any other signs of infection at this time.Edinly # 1 applied today - Physical Exam Vital Signs Temp Pulse Resp BP 96.8 F L 60 18 148/90 H 03/20/19 13:21 03/20/19 13:21 03/20/19 13:21 03/20/19 13:21 General: Alert, Oriented x3, Cooperative, No apparent distress HEENT: Atraumatic Oral: Moist Mucosa Lungs: Clear to auscultation Cardiovascular: Regular rate Abdomen: Soft, Non Tender Extremities: No clubbing, No cyanosis, Edema - Generalized bilateral lower extremity edema Skin: Ulcer/ Wound - Ulceration present to right anterior lower extremity with adherent slough, otherwise no signs of obvious infection at this time. No redness, streaking, or purulent drainage. Wound Measurements and Assessment WC - Nurse 1 - General Ulcer Measurement Start: 03/20/19 13:21 Freq: Status: Active Protocol: Activity Type Activity Date Activity User E-Sign Co-Sign Detail Recorded Client Recorded Date Recorded By Document 03/20/19 13:21 DE [id number] 03/20/19 13:27 DE 03/20/19 13:21 Wound Center Nurse 1 [Ulcer Assessment] #1 Right Gil -Combined with other wound No -Current Size (cm) - Length 0.5 -Current Size (cm) - Width 1.4 -Current Size (cm) - Depth 0.2 -Total Square Cm 0.70 -Photo Taken No -Tunneling No -Undermining/Tunneling No -Wound Margin Flat & Intact -Granulation Amt Small (1-33%) -Granulation Quality Pale [place] -Necrosis Amt Large (67-100%) -Necrotic Tissue Type Adherent Slough -Texture ([place]-wound Skin Appearance) Assessed -Moisture ([place]-wound Skin Appearance Assessed ) -Color ([place]-wound Skin Appearance) Assessed Hemosiderin Staining -Temperature ([place]-wound Skin No Abnormality Appearance) (Pt Warm) -Tenderness on Palpation ([place]-wound No Skin Appearance) -Ulcer Cleansing Rinsed/ Irrigated with Saline -Foul Odor after Cleansing No -Anesthetic Used 5% Lidocaine Gel [Edema Assessment] -Right Calf (cm) 34.5 -Right Ankle (cm) 21 WC - Nurse 2 - General Ulcer CM Notes Start: 03/20/19 13:21 Freq: Status: Active Protocol: Activity Type Activity Date Activity User E-Sign Co-Sign Detail Recorded Client Recorded Date Recorded By Document 03/20/19 13:33 AN [id number] 03/20/19 13:39 AN 03/20/19 13:33 Wound Center Nurse 2 [Procedure/Treatment] #1 Right Gil -Time 13:36 -Correct Patient Yes -Correct Side, Site, Position Yes -Correct Procedure Yes -Procedure Performed Yes -Type of Procedure Debridement -Clinical Debridement Subcutaneous -Post Debridement Size (cm) - Length 0.6 -Post Debridement Size (cm) - Width 1.1 -Post Debridement Size (cm) - Depth 0.2 -Total Square Cm 0.66 -Wound/Ulcer Outcome Not Healed -Ulcer Cleansing Rinsed/ Irrigated with Saline -Foul Odor after Cleansing No -Bioengineered Tissue Yes -Type of bioengineered Tissue [id number] -Expiration Date 05/26/21 -Product Lot Number [id number] -Percent Used 100 -Saline Lot Number [id number] -Bleeding Controlled with Pressure -Treatment Response Procedure Tolerated Well [See Physician Procedure note for Specifics] Pain Scale: 0-10 Numeric [Pain] -Is Patient Pain Free? Yes Neurological: Neuro grossly intact Psych/Mental Status: Normal Affect, Appropriate, Alert and oriented to time, place, person, mood and affect Debridement Note Post-Debridement Measurements/Treatment WC - Nurse 2 - General Ulcer CM Notes Start: 03/20/19 13:21 Freq: Status: Active Protocol: Activity Type Activity Date Activity User E-Sign Co-Sign Detail Recorded Client Recorded Date Recorded By Document 03/20/19 13:33 AN [email or web address] 03/20/19 13:39 AN 03/20/19 13:33 Wound Center Nurse 2 #1 Right Gil -Time 13:36 -Correct Patient Yes -Correct Side, Site, Position Yes -Correct Procedure Yes -Procedure Performed Yes -Type of Procedure Debridement -Clinical Debridement Subcutaneous -Post Debridement Size (cm) - Length 0.6 -Post Debridement Size (cm) - Width 1.1 -Post Debridement Size (cm) - Depth 0.2 -Total Square Cm 0.66 -Wound/Ulcer Outcome Not Healed -Ulcer Cleansing Rinsed/ Irrigated with Saline -Foul Odor after Cleansing No -Bioengineered Tissue Yes -Type of bioengineered Tissue [id number] -Expiration Date 05/26/21 -Product Lot Number [id number] -Percent Used 100 -Saline Lot Number [id number] -Bleeding Controlled with Pressure -Treatment Response Procedure Tolerated Well Pain Scale: 0-10 Numeric Is Patient Pain Free? Yes Wound debrided: Right anterior lower extremity ulceration Type of Debridement: Excisional debridement Anesthesia Used: 5% Lidocaine Gel Depth: in the subcutaneous layer Percentage of wound debrided: 100 Instrument Used: 5mm curette Tissue Removed: Slough and devitalized tissue Severity: Fat Layer Exposed Amount of bleeding with debridement: Mild Bleeding Controlled with: Pressure Patient tolerated procedure well Assessment/Plan Active Problems (Last Updated 03/12/18 @ 09:58 by SABIHA De Leon) 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 (Acute) s/p fall Bilateral lower extremity edema (Acute) Assessment: Nonhealing ulcer to right lower extremity status post fall on 01/25/2019. Decreased dorsal pedis pulses. Bilateral lower extremity edema Plan: The patient was seen and examined at the wound center today and was updated on the plan of care. A subcutaneous debridement was performed today. The patient tolerated the procedure well. The patients wound care will consist of: Pure apply a.m. #1 was applied after subcutaneous debridement, it was then covered with the wound veil and a thin layer of hydrogel, and secured with Steri-Strips, 100% of the product was used with 0% waste. Patient tolerated the procedure well. Double Tubigrip for compression. Santyl was chosen due to the large amount of adherent slough present. Wound cultures were collected prior and showed morganella and anaerobic cocci, pt completed Cipro and finished course of keflex. Baseline bloodwork reviewed and essentially wnl, low prealbumin, instructed on 30 g of protien 3 times per day. Vascular studies showed no venous insufficiency or arterial occlusive disease. X-ray ordered as well as this was initially caused by a fall, reviewed and essentially negative. Patient educated on the importance of diet on wound healing and instructed to increase protein and vitamin C intake. Patient verbalized understanding. Patient will follow up at wound healing center in one week or sooner if needed. Patient and family members were educated on signs of cellulitis and systemic infection that require urgent medical attention and to go to the emergency department if these symptoms occur. This note was generated with [employer] dictation software. It may contain incorrect words, spelling, and punctuation that were not noted in checking the note before signing. Code Visit 150xxx-152xx: 08156 Skin sub graft trnk/arm/leg
[2019-03-28 16:07] VITALS: BP 139/67; PULSE 63; RESP 16; TEMP 36.5; BMI 23.8
--- NOTE | 2019-03-28 19:55 | PCM.WC.HP ---
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 Current Visit: Yes Code(s): L97.912 - Non-pressure chronic ulcer of unspecified part of right lower leg with fat layer exposed Comment: s/p fall (2) Bilateral lower extremity edema Status: Chronic Current Visit: Yes Code(s): R60.0 - Localized edema (3) Essential (primary) hypertension Status: Chronic Current Visit: No Code(s): I10 - Essential (primary) hypertension History of Present Illness Date of Service: 03/28/19 Chief Complaint: Nonhealing ulcer to right lower extremity History of Wound: This is an 83-year-old white female who presents to the wound healing center with complaint of nonhealing ulcer to right lower extremity. She is seen as a courtesy visit for Simba La NP. She tolerated Puraply application last week and has had improvement in the size of her wound. She has a past medical history as listed below. While she was in [place], she fell and hit her right lower extremity on the side of her bed on 01-25-19. At one point, the site was sutured after she went to the emergency department. It has not healed since that time. She saw her primary care provider and they thought the site was infected so they placed her on Keflex and referred her to the wound healing center. She denies any systemic signs of infection. The patient otherwise denies any fever, chills, nausea, vomiting, shortness of breath, chest pain or pressure, palpitations, orthopnea, lower extremity edema, syncope or presyncopal episodes. 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 Essential (primary) hypertension (Chronic) HLD (hyperlipidemia) (Chronic) Allergies/Adverse Reactions: Allergies No Known Allergies Allergy (Verified 03/12/18 09:30) Home Medications: Ambulatory Orders Medication Instructions Recorded aspirin 81 mg tablet,delayed 81 mg PO QDAY 03/04/18 release nitroglycerin 0.4 mg sublingual 0.4 mg SUBLINGUAL Q5M PRN 03/04/18 tablet calcium carbonate 600 mg calcium 600 mg PO ONCE tab 03/12/18 (1,500 mg) tablet folic acid 400 mcg tablet 0.4 mg PO QDAY #25 tab 03/12/18 metoprolol tartrate 25 mg tablet 25 mg PO BID #180 tab 08/20/18 ramipril 10 mg capsule 10 mg PO QDAY #90 cap 08/20/18 rosuvastatin 40 mg tablet 40 mg PO QDAY #90 tab 08/20/18 - Family History Maternal Family History: Family History (Last Updated 02/21/18 @ 15:26 by Lakeshia Tan) Father No problems noted. Mother CAD (coronary artery disease) Brother CAD (coronary artery disease) Cancer No pertinent history Lives: Spouse/ Significant Other Smoking Status: Never smoker Tobacco Use: Non-smoker Alcohol: None Drugs: None Review of Systems Constitutional: Denies: Chills, Fever, Weight Change Eyes: Denies: Pain, Vision Change HEENT: Denies: Difficulty Hearing, Difficulty Swallowing, Sinus Congestion Cardiovascular: Denies: Chest Pain, Palpitations Respiratory: Denies: Cough, Shortness of Breath Gastrointestinal: Denies: Diarrhea, Nausea, Vomiting Genitourinary: Denies: Dysuria, Hematuria Musculoskeletal: Reports: Leg Pain Skin: Reports: Wounds Endocrine: Denies: Heat/ Cold Intolerance, Polydipsia, Polyuria Hematologic/ Lymphatic: Denies: Easy Bruising, Easy Bleeding - Physical Exam Vital Signs Temp Pulse Resp BP 97.7 F L 63 16 139/67 H 03/28/19 16:07 03/28/19 16:07 03/28/19 16:07 03/28/19 16:07 General: Alert, Oriented x3, Cooperative, No apparent distress HEENT: Atraumatic, Normocephalic Oral: Moist Mucosa Neck: Supple Lungs: Clear to auscultation Cardiovascular: Regular rate, Regular Rhythm Abdomen: Soft, Non Tender Extremities: Edema Skin: Ulcer/ Wound Wound Measurements and Assessment WC - Nurse 1 - General Ulcer Measurement Start: 03/20/19 13:21 Freq: Status: Active Protocol: Activity Type Activity Date Activity User E-Sign Co-Sign Detail Recorded Client Recorded Date Recorded By Document 03/28/19 16:07 [facility] [id number] 03/28/19 16:19 [facility] 03/28/19 16:07 Wound Center Nurse 1 [Ulcer Assessment] #1 Right Gil -Combined with other wound No -Current Size (cm) - Length 0.1 -Current Size (cm) - Width 0.1 -Current Size (cm) - Depth 0.1 -Total Square Cm 0.01 -Photo Taken No -Epithelialization None Present -Tunneling No -Undermining/Tunneling No -Circular Undermining No -Exudate Amt Small -Exudate Type Sanguineous -Wound Margin Distinct, Outline Attached -Granulation Quality N/A -Necrosis Amt None Present (0 %) -Structure Exposed N/A -Texture ([place]-wound Skin Appearance) Scarring -Moisture ([place]-wound Skin Appearance Dry/Scaly ) -Color ([place]-wound Skin Appearance) Erythema -Temperature ([place]-wound Skin No Abnormality Appearance) (Pt Warm) -Tenderness on Palpation ([place]-wound No Skin Appearance) -Ulcer Cleansing Rinsed/ Irrigated with Saline -Foul Odor after Cleansing No -Anesthetic Used 5% Lidocaine Gel [Edema Assessment] -Lower Limb Edema Present No WC - Nurse 2 - General Ulcer CM Notes Start: 03/20/19 13:21 Freq: Status: Active Protocol: Activity Type Activity Date Activity User E-Sign Co-Sign Detail Recorded Client Recorded Date Recorded By Document 03/28/19 17:05 [id number] 03/28/19 17:07 03/28/19 17:05 Wound Center Nurse 2 [Procedure/Treatment] #1 Right Gil -Time 17:07 -Correct Patient Yes -Correct Side, Site, Position Yes -Correct Procedure Yes -Procedure Performed Yes -Type of Procedure Debridement -Clinical Debridement Subcutaneous -Post Debridement Size (cm) - Length 0.2 -Post Debridement Size (cm) - Width 0.5 -Post Debridement Size (cm) - Depth 0.1 -Total Square Cm 0.10 -Wound/Ulcer Outcome Not Healed -Ulcer Cleansing Rinsed/ Irrigated with Saline -Foul Odor after Cleansing No -Bioengineered Tissue Yes -Type of bioengineered Tissue [id number] -Bleeding Controlled with Pressure -Offloading No -Treatment Response Procedure Tolerated Well [See Physician Procedure note for Specifics] Pain Scale: 0-10 Numeric [Pain] -Is Patient Pain Free? Yes Psych/Mental Status: Normal Affect, Appropriate Debridement Note Post-Debridement Measurements/Treatment WC - Nurse 2 - General Ulcer CM Notes Start: 03/20/19 13:21 Freq: Status: Active Protocol: Activity Type Activity Date Activity User E-Sign Co-Sign Detail Recorded Client Recorded Date Recorded By Document 03/20/19 13:33 AN [id number] 03/20/19 13:39 AN Document 03/28/19 17:05 DV [id number] 03/28/19 17:07 DV 03/20/19 03/28/19 13:33 17:05 Wound Center Nurse 2 #1 Right Gil -Time 13:36 17:07 -Correct Patient Yes Yes -Correct Side, Site, Position Yes Yes -Correct Procedure Yes Yes -Procedure Performed Yes Yes -Type of Procedure Debridement Debridement -Clinical Debridement Subcutaneous Subcutaneous -Post Debridement Size (cm) - Length 0.6 0.2 -Post Debridement Size (cm) - Width 1.1 0.5 -Post Debridement Size (cm) - Depth 0.2 0.1 -Total Square Cm 0.66 0.10 -Wound/Ulcer Outcome Not Healed Not Healed -Ulcer Cleansing Rinsed/ Rinsed/ Irrigated with Irrigated with Saline Saline -Foul Odor after Cleansing No No -Bioengineered Tissue Yes Yes -Type of bioengineered Tissue [id number] -Expiration Date 05/26/21 -Product Lot Number [id number] -Percent Used 100 -Saline Lot Number [id number] -Bleeding Controlled with Pressure Pressure -Offloading No -Treatment Response Procedure Procedure Tolerated Well Tolerated Well Pain Scale: 0-10 Numeric Is Patient Pain Free? 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 Decreased dorsal pedis pulses. Bilateral lower extremity edema Plan: The patient was seen and examined at the wound center today and was updated on the plan of care. A subcutaneous debridement was performed today. The patient tolerated the procedure well. The patients wound care will consist of: Pure apply a.m. #2 was applied after subcutaneous debridement, it was then covered with the wound veil and a thin layer of hydrogel, and secured with Steri-Strips, 100% of the product was used with 0% waste. Patient tolerated the procedure well. Double Tubigrip for compression. Baseline bloodwork reviewed and essentially wnl, low prealbumin, instructed on 30 g of protien 3 times per day. Vascular studies showed no venous insufficiency or arterial occlusive disease. X-ray ordered as well as this was initially caused by a fall, reviewed and essentially negative. Patient educated on the importance of diet on wound healing and instructed to increase protein and vitamin C intake. Patient verbalized understanding. Patient will follow up at wound healing center in one week or sooner if needed. Patient and family members were educated on signs of cellulitis and systemic infection that require urgent medical attention and to go to the emergency department if these symptoms occur. This note was generated with [employer] dictation software. It may contain incorrect words, spelling, and punctuation that were not noted in checking the note before signing.
--- NOTE | 2019-03-28 19:59 | HP.PCM_ITS ---
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 Current Visit: Yes Code(s): L97.912 - Non-pressure chronic ulcer of unspecified part of right lower leg with fat layer exposed Comment: s/p fall (2) Bilateral lower extremity edema Status: Chronic Current Visit: Yes Code(s): R60.0 - Localized edema (3) Essential (primary) hypertension Status: Chronic Current Visit: No Code(s): I10 - Essential (primary) hypertension History of Present Illness Date of Service: 03/28/19 Chief Complaint: Nonhealing ulcer to right lower extremity History of Wound: This is an 83-year-old white female who presents to the wound healing center with complaint of nonhealing ulcer to right lower extremity. She is seen as a courtesy visit for Simba La NP. She tolerated Puraply application last week and has had improvement in the size of her wound. She has a past medical history as listed below. While she was in [place], she fell and hit her right lower extremity on the side of her bed on 01-25-19. At one point, the site was sutured after she went to the emergency department. It has not healed since that time. She saw her primary care provider and they thought the site was infected so they placed her on Keflex and referred her to the wound healing center. She denies any systemic signs of infection. The patient otherwise denies any fever, chills, nausea, vomiting, shortness of breath, chest pain or pressure, palpitations, orthopnea, lower extremity edema, syncope or presyncopal episodes. 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 Essential (primary) hypertension (Chronic) HLD (hyperlipidemia) (Chronic) Allergies/Adverse Reactions: Allergies No Known Allergies Allergy (Verified 03/12/18 09:30) Home Medications: Ambulatory Orders Medication Instructions Recorded aspirin 81 mg tablet,delayed 81 mg PO QDAY 03/04/18 release nitroglycerin 0.4 mg sublingual 0.4 mg SUBLINGUAL Q5M PRN 03/04/18 tablet calcium carbonate 600 mg calcium 600 mg PO ONCE tab 03/12/18 (1,500 mg) tablet folic acid 400 mcg tablet 0.4 mg PO QDAY #25 tab 03/12/18 metoprolol tartrate 25 mg tablet 25 mg PO BID #180 tab 08/20/18 ramipril 10 mg capsule 10 mg PO QDAY #90 cap 08/20/18 rosuvastatin 40 mg tablet 40 mg PO QDAY #90 tab 08/20/18 - Family History Maternal Family History: Family History (Last Updated 02/21/18 @ 15:26 by Lakeshia Tan) Father No problems noted. Mother CAD (coronary artery disease) Brother CAD (coronary artery disease) Cancer No pertinent history Lives: Spouse/ Significant Other Smoking Status: Never smoker Tobacco Use: Non-smoker Alcohol: None Drugs: None Review of Systems Constitutional: Denies: Chills, Fever, Weight Change Eyes: Denies: Pain, Vision Change HEENT: Denies: Difficulty Hearing, Difficulty Swallowing, Sinus Congestion Cardiovascular: Denies: Chest Pain, Palpitations Respiratory: Denies: Cough, Shortness of Breath Gastrointestinal: Denies: Diarrhea, Nausea, Vomiting Genitourinary: Denies: Dysuria, Hematuria Musculoskeletal: Reports: Leg Pain Skin: Reports: Wounds Endocrine: Denies: Heat/ Cold Intolerance, Polydipsia, Polyuria Hematologic/ Lymphatic: Denies: Easy Bruising, Easy Bleeding - Physical Exam Vital Signs Temp Pulse Resp BP 97.7 F L 63 16 139/67 H 03/28/19 16:07 03/28/19 16:07 03/28/19 16:07 03/28/19 16:07 General: Alert, Oriented x3, Cooperative, No apparent distress HEENT: Atraumatic, Normocephalic Oral: Moist Mucosa Neck: Supple Lungs: Clear to auscultation Cardiovascular: Regular rate, Regular Rhythm Abdomen: Soft, Non Tender Extremities: Edema Skin: Ulcer/ Wound Wound Measurements and Assessment WC - Nurse 1 - General Ulcer Measurement Start: 03/20/19 13:21 Freq: Status: Active Protocol: Activity Type Activity Date Activity User E-Sign Co-Sign Detail Recorded Client Recorded Date Recorded By Document 03/28/19 16:07 [facility] [id number] 03/28/19 16:19 [facility] 03/28/19 16:07 Wound Center Nurse 1 [Ulcer Assessment] #1 Right Gil -Combined with other wound No -Current Size (cm) - Length 0.1 -Current Size (cm) - Width 0.1 -Current Size (cm) - Depth 0.1 -Total Square Cm 0.01 -Photo Taken No -Epithelialization None Present -Tunneling No -Undermining/Tunneling No -Circular Undermining No -Exudate Amt Small -Exudate Type Sanguineous -Wound Margin Distinct, Outline Attached -Granulation Quality N/A -Necrosis Amt None Present (0 %) -Structure Exposed N/A -Texture ([place]-wound Skin Appearance) Scarring -Moisture ([place]-wound Skin Appearance Dry/Scaly ) -Color ([place]-wound Skin Appearance) Erythema -Temperature ([place]-wound Skin No Abnormality Appearance) (Pt Warm) -Tenderness on Palpation ([place]-wound No Skin Appearance) -Ulcer Cleansing Rinsed/ Irrigated with Saline -Foul Odor after Cleansing No -Anesthetic Used 5% Lidocaine Gel [Edema Assessment] -Lower Limb Edema Present No WC - Nurse 2 - General Ulcer CM Notes Start: 03/20/19 13:21 Freq: Status: Active Protocol: Activity Type Activity Date Activity User E-Sign Co-Sign Detail Recorded Client Recorded Date Recorded By Document 03/28/19 17:05 [id number] 03/28/19 17:07 03/28/19 17:05 Wound Center Nurse 2 [Procedure/Treatment] #1 Right Gil -Time 17:07 -Correct Patient Yes -Correct Side, Site, Position Yes -Correct Procedure Yes -Procedure Performed Yes -Type of Procedure Debridement -Clinical Debridement Subcutaneous -Post Debridement Size (cm) - Length 0.2 -Post Debridement Size (cm) - Width 0.5 -Post Debridement Size (cm) - Depth 0.1 -Total Square Cm 0.10 -Wound/Ulcer Outcome Not Healed -Ulcer Cleansing Rinsed/ Irrigated with Saline -Foul Odor after Cleansing No -Bioengineered Tissue Yes -Type of bioengineered Tissue [id number] -Bleeding Controlled with Pressure -Offloading No -Treatment Response Procedure Tolerated Well [See Physician Procedure note for Specifics] Pain Scale: 0-10 Numeric [Pain] -Is Patient Pain Free? Yes Psych/Mental Status: Normal Affect, Appropriate Debridement Note Post-Debridement Measurements/Treatment WC - Nurse 2 - General Ulcer CM Notes Start: 03/20/19 13:21 Freq: Status: Active Protocol: Activity Type Activity Date Activity User E-Sign Co-Sign Detail Recorded Client Recorded Date Recorded By Document 03/20/19 13:33 AN [id number] 03/20/19 13:39 AN Document 03/28/19 17:05 DV [id number] 03/28/19 17:07 DV 03/20/19 03/28/19 13:33 17:05 Wound Center Nurse 2 #1 Right Gil -Time 13:36 17:07 -Correct Patient Yes Yes -Correct Side, Site, Position Yes Yes -Correct Procedure Yes Yes -Procedure Performed Yes Yes -Type of Procedure Debridement Debridement -Clinical Debridement Subcutaneous Subcutaneous -Post Debridement Size (cm) - Length 0.6 0.2 -Post Debridement Size (cm) - Width 1.1 0.5 -Post Debridement Size (cm) - Depth 0.2 0.1 -Total Square Cm 0.66 0.10 -Wound/Ulcer Outcome Not Healed Not Healed -Ulcer Cleansing Rinsed/ Rinsed/ Irrigated with Irrigated with Saline Saline -Foul Odor after Cleansing No No -Bioengineered Tissue Yes Yes -Type of bioengineered Tissue [id number] -Expiration Date 05/26/21 -Product Lot Number [id number] -Percent Used 100 -Saline Lot Number [id number] -Bleeding Controlled with Pressure Pressure -Offloading No -Treatment Response Procedure Procedure Tolerated Well Tolerated Well Pain Scale: 0-10 Numeric Is Patient Pain Free? 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 Decreased dorsal pedis pulses. Bilateral lower extremity edema Plan: The patient was seen and examined at the wound center today and was updated on the plan of care. A subcutaneous debridement was performed today. The patient tolerated the procedure well. The patients wound care will consist of: Pure apply a.m. #2 was applied after subcutaneous debridement, it was then covered with the wound veil and a thin layer of hydrogel, and secured with [place]-Strips, 100% of the product was used with 0% waste. Patient tolerated the procedure well. Double Tubigrip for compression. Baseline bloodwork reviewed and essentially wnl, low prealbumin, instructed on 30 g of protien 3 times per day. Vascular studies showed no venous insufficiency or arterial occlusive disease. X-ray ordered as well as this was initially caused by a fall, reviewed and essentially negative. Patient educated on the importance of diet on wound healing and instructed to increase protein and vitamin C intake. Patient verbalized understanding. Patient will follow up at wound healing center in one week or sooner if needed. Patient and family members were educated on signs of cellulitis and systemic infection that require urgent medical attention and to go to the emergency department if these symptoms occur. This note was generated with [employer] dictation software. It may contain incorrect words, spelling, and punctuation that were not noted in checking the note before signing.
[2019-04-04 13:55] VITALS: BP 125/69; PULSE 52; RESP 16; TEMP 36.3; BMI 23.8
--- NOTE | 2019-04-04 14:43 | PN.PCM_ITS ---
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 She is seen as a courtesy visit for Simba La NP. She tolerated Puraply application last week and has had improvement in the size of her wound. She has a past medical history as listed below. While she was in [place], she fell and hit her right lower extremity on the side of her bed on 01-25-19. At one point, the site was sutured after she went to the emergency department. It has not healed since that time. She saw her primary care provider and they thought the site was infected so they placed her on Keflex and referred her to the wound healing center. She denies any systemic signs of infection. The patient otherwise denies any fever, chills, nausea, vomiting, shortness of breath, chest pain or pressure, palpitations, orthopnea, lower extremity edema, syncope or presyncopal episodes. Progress of Wound: Her wound is healed today. - Physical Exam Vital Signs Temp Pulse Resp BP 97.3 F L 52 L 16 125/69 H 04/04/19 13:55 04/04/19 13:55 04/04/19 13:55 04/04/19 13:55 General: Alert, Oriented x3, Cooperative, No apparent distress HEENT: Atraumatic, Normocephalic Oral: Moist Mucosa Neck: Supple Extremities: Edema Skin: Ulcer/ Wound Wound Measurements and Assessment WC - Nurse 1 - General Ulcer Measurement Start: 03/20/19 13:21 Freq: Status: Active Protocol: Activity Type Activity Date Activity User E-Sign Co-Sign Detail Recorded Client Recorded Date Recorded By Document 04/04/19 13:55 [facility] [id number] 04/04/19 14:04 BMF 04/04/19 13:55 Wound Center Nurse 1 [Ulcer Assessment] #1 Right Esquivel -Combined with other wound No -Current Size (cm) - Length 0.1 -Current Size (cm) - Width 0.1 -Current Size (cm) - Depth 0.1 -Total Square Cm 0.01 -Epithelialization Large 67-100% -Tunneling No -Undermining/Tunneling No -Circular Undermining No -Texture ([place]-wound Skin Appearance) Assessed, Scarring -Moisture ([place]-wound Skin Appearance Assessed,Dry/ ) Scaly -Color ([place]-wound Skin Appearance) Assessed -Temperature ([place]-wound Skin No Abnormality Appearance) (Pt Warm) -Tenderness on Palpation ([place]-wound No Skin Appearance) -Ulcer Cleansing Rinsed/ Irrigated with Saline -Foul Odor after Cleansing No -Anesthetic Used 5% Lidocaine Gel [Edema Assessment] -Lower Limb Edema Present Yes -Right Calf (cm) 32.3 -Right Ankle (cm) 21.1 WC - Nurse 2 - General Ulcer CM Notes Start: 03/20/19 13:21 Freq: Status: Active Protocol: Activity Type Activity Date Activity User E-Sign Co-Sign Detail Recorded Client Recorded Date Recorded By Document 04/04/19 14:35 AN [id number] 04/04/19 14:36 AN 04/04/19 14:35 Wound Center Nurse 2 [Procedure/Treatment] #1 Right Esquivel -Time 14:35 -Correct Patient Yes -Correct Side, Site, Position Yes -Correct Procedure Yes -Procedure Performed Yes -Type of Procedure Debridement -Clinical Debridement Subcutaneous -Wound/Ulcer Outcome Not Healed -Ulcer Cleansing Rinsed/ Irrigated with Saline -Foul Odor after Cleansing No [See Physician Procedure note for Specifics] Psych/Mental Status: Normal Affect, Appropriate Debridement Note Post-Debridement Measurements/Treatment - Nurse 2 - General Ulcer CM Notes Start: 03/20/19 13:21 Freq: Status: Active Protocol: Activity Type Activity Date Activity User E-Sign Co-Sign Detail Recorded Client Recorded Date Recorded By Document 03/20/19 13:33 AN [id number] 03/20/19 13:39 AN Document 03/28/19 17:05 DV [id number] 03/28/19 17:07 DV Document 04/04/19 14:35 AN [id number] 04/04/19 14:36 AN 03/20/19 03/28/19 04/04/19 13:33 17:05 14:35 Wound Center Nurse 2 #1 Right Esquivel -Time 13:36 17:07 14:35 -Correct Patient Yes Yes Yes -Correct Side, Site, Position Yes Yes Yes -Correct Procedure Yes Yes Yes -Procedure Performed Yes Yes Yes -Type of Procedure Debridement Debridement Debridement -Clinical Debridement Subcutaneous Subcutaneous Subcutaneous -Post Debridement Size (cm) - Length 0.6 0.2 -Post Debridement Size (cm) - Width 1.1 0.5 -Post Debridement Size (cm) - Depth 0.2 0.1 -Total Square Cm 0.66 0.10 -Wound/Ulcer Outcome Not Healed Not Healed Not Healed -Ulcer Cleansing Rinsed/ Rinsed/ Rinsed/ Irrigated with Irrigated with Irrigated with Saline Saline Saline -Foul Odor after Cleansing No No No -Bioengineered Tissue Yes Yes -Type of bioengineered Tissue [id number] -Expiration Date 05/26/21 -Product Lot Number [id number] -Percent Used 100 -Saline Lot Number [id number] -Bleeding Controlled with Pressure Pressure -Offloading No -Treatment Response Procedure Procedure Tolerated Well Tolerated Well Pain Scale: 0-10 Numeric Is Patient Pain Free? Yes Yes Wound debrided: right esquivel Laterality: Right Type of Debridement: Selective debridement Anesthesia Used: 4% Lidocaine Solution Depth: Down to and including healthy tissue Percentage of wound debrided: 100 Instrument Used: 3mm curette Tissue Removed: devitalized tissue Severity: Limited To Skin Breakdown Amount of bleeding with debridement: None Patient tolerated procedure well Assessment/Plan Assessment: Nonhealing ulcer to right lower extremity status post fall on 01/25/2019. Decreased dorsal pedis pulses. Bilateral lower extremity edema Plan: The patient was seen and examined at the wound center today and was updated on the plan of care. A selective debridement was performed today. The patient tolerated the procedure well. Her wound is healed. Double Tubigrip for compression. Vascular studies showed no venous insufficiency or arterial occlusive disease. She will be discharged from treatment today and will follow up as needed. It has been a pleasure to treat her.
== END 2019-04-13 23:59 ==
LOC: WC 13:45
PROVIDERS: Family Provider Family Medicine; PCP Family Medicine; Referring Provider Nurse Practitioner Family; Visit Provider Nurse Practitioner Family
DX: L97.812 Non-pressure chronic ulcer of other part of right lower leg with fat layer exposed (principal); E78.5 Hyperlipidemia, unspecified; I10 Essential (primary) hypertension; R60.0 Localized edema; Z91.81 History of falling; I25.10 Atherosclerotic heart disease of native coronary artery without angina pectoris; Z95.1 Presence of aortocoronary bypass graft; Z79.899 Other long term (current) drug therapy; Z79.82 Long term (current) use of aspirin
CPT/HCPCS: 15271; 99212; Q4196; G0463

== ENCOUNTER → 2019-07-11 14:41 | Outpatient (CLI) | payer MEDICARE, SELFPAY ==
[2019-04-09 13:32] VITALS: BMI 23.8
== END ==
PROVIDERS: Family Provider Family Medicine; PCP Family Medicine; Referring Provider Family Medicine; Visit Provider Family Medicine
DX: N39.0 Urinary tract infection, site not specified (principal)
CPT/HCPCS: 87086; 87088; 87186

== ENCOUNTER → 2019-07-17 13:53 | Outpatient (CLI) | payer MEDICARE, SELFPAY ==
[2019-04-09 13:32] VITALS: BMI 23.8
[2019-07-17 16:03] LABS: Color, Urine Yellow (Yellow); Glucose, Dipstick Normal (Normal); Ketone-Dipstick Negative (Negative); Leukocyte Esterase-Dipstick 500 /ul (Negative); Nitrite-Dipstick Negative (Negative); Occult Blood-Urine 50 /ul (Negative); Protein-Dipstick 30 mg/dl (Negative); Specific Gravity, Urine 1.015 (1.002-1.030); Urine Bilirubin Dipstick Negative (Negative); Urine Clarity Cloudy (Clear); Urine Urobilinogen Normal (Normal)
== END ==
PROVIDERS: Family Provider Family Medicine; PCP Family Medicine; Referring Provider Family Medicine; Visit Provider Family Medicine
DX: N39.0 Urinary tract infection, site not specified (principal)
CPT/HCPCS: 81002; 87086; 87088; 87186

== ENCOUNTER → 2020-04-06 10:00 | Outpatient (CLI) | payer MEDICARE, SELFPAY ==
[2019-04-09 13:32] VITALS: BMI 23.8
[2020-04-06 11:18] LABS: AST(SGOT) 21 U/L (15-37); Alanine Aminotransfer ALT/SGPT 21 U/L (13-56); Albumin, Serum 3.7 g/dL (3.2-5.0); Alkaline Phosphatase 84 U/L (45-117); Bilirubin, Direct 0.32 mg/dL (0.00-0.30); Cholesterol 148 mg/dL (200); Globulin 4.2 g/dL (2.2-4.2); High Density Lipoprotein 54 mg/dL; Protein, Total 7.9 g/dL (6.4-8.2); Triglycerides 108 mg/dL; Very Low Density Lipoprotein 22 mg/dL (5-40)
== END ==
PROVIDERS: PCP Family Medicine; Referring Provider Internal Medicine Cardiovascular Disease; Visit Provider Internal Medicine Cardiovascular Disease
DX: E78.5 Hyperlipidemia, unspecified (principal)
CPT/HCPCS: 36415; 80061; 80076

== ENCOUNTER → 2020-04-27 12:45 | Outpatient (CLI) | payer MEDICARE, SELFPAY ==
[2020-04-12 13:10] VITALS: BMI 24.0
--- NOTE | 2020-04-27 12:46 | ECHOD_ITS ---
Reason For Study: MURMUR Procedure This was a 2D Doppler, Color Flow transthoracic echocardiogram. The study was technically difficult. Exam performed in department. Left Ventricle Normal LV size. Left ventricular systolic function is normal. The estimated ejection fraction is 65 %. No regional wall motion abnormalities noted. Right Ventricle Normal RV size. Normal systolic function. Atria Normal left atrium. Normal right atrium. No doppler evidence for ASD. Mitral Valve There is mild mitral annular calcification. Extension of the mitral annular calcification on the base of the posterior mitral valve leaflet. Mild-Moderate (1-2+) mitral valve insufficiency. Tricuspid Valve Normal tricuspid valve. Mild to moderate (1-2+) tricuspid valve insufficiency. Right ventricular systolic pressure estimated to be 38 mmHg. Aortic Valve Trisinus/trileaflet aortic valve. Mild diffuse aortic valve thickening. Mild diffuse aortic valve calcification. Mild aortic stenosis. Pulmonic Valve The pulmonic valve is not well visualized. Mild-Moderate (1-2+) pulmonic valve insufficiency. Great Vessels Normal sized aortic root. Pericardium/Pleural No pericardial effusion. MMode/2D Measurements & Calculations LVIDd: 3.4 cm IVSd: 1.0 cm LVOT diam: 2.0 cm LVIDs: 2.2 cm LVPWd: 0.96 cm LVOT area: 3.1 cm2 RVDd: 3.2 cm FS: 35.8 % Ao root diam: 3.1 cm LAV(MOD-bp): 41.2 ml LVAd ap4: 22.2 cm2 LAV(MOD-bp) Indexed: 25.9 ml/m2 EDV(MOD-sp4): 57.2 ml LAV(MOD-sp2): 38.7 ml EDV(sp4-el): 57.6 ml LAV(MOD-sp4): 43.4 ml LVAs ap4: 12.0 cm2 ESV(MOD-sp4): 20.4 ml ESV(sp4-el): 20.8 ml EF(MOD-sp4): 64.3 % EF(sp4-el): 63.9 % SV(MOD-sp4): 36.8 ml SV(sp4-el): 36.8 ml LA A4 area: 17.0 cm2 LA dimension(2D): 3.5 cm RA A4 area: 15.4 cm2 Time Measurements MV dec time: 0.24 sec Doppler Measurements & Calculations MV E max emory: 82.5 cm/sec Lat Peak E' Emory: 9.2 cm/sec Med Peak E' Eomry: 7.2 cm/sec MV A max emory: 70.0 cm/sec E/E' lat: 9.0 E/E' med: 11.4 MV E/A: 1.2 Ao V2 max: 253.6 cm/sec LV V1 max: 100.0 cm/sec SV(LVOT): 80.9 ml Ao max P.8 mmHg LV V1 max P.0 mmHg Ao V2 mean: 178.1 cm/sec LV V1 mean P.9 mmHg Ao mean P.3 mmHg LV V1 mean: 64.2 cm/sec Ao V2 VTI: 60.8 cm LV V1 VTI: 26.2 cm SHARON(I,D): 1.3 cm2 SHARON(V,D): 1.2 cm2 PA V2 max: 89.6 cm/sec TR max emory: 296.1 cm/sec TR max P.1 mmHg Interpretation Summary The study was technically difficult. Left ventricular systolic function is normal. The estimated ejection fraction is 65 %. There is mild mitral annular calcification. Extension of the mitral annular calcification on the base of the posterior mitral valve leaflet. Mild-Moderate (1-2+) mitral valve insufficiency. Mild to moderate (1-2+) tricuspid valve insufficiency. Mild aortic stenosis. Mild-Moderate (1-2+) pulmonic valve insufficiency. Right ventricular systolic pressure estimated to be 38 mmHg. Transmitral diastolic flow velocities suggest diastolic dysfunction (pseudonormal pattern). Ordering Physician: Huey Reddy Referring Physician: LETA WADDELL Performed By: Mehnaz Lackey RDCS
== END ==
PROVIDERS: PCP Family Medicine; Referring Provider Internal Medicine Cardiovascular Disease; Visit Provider Internal Medicine Cardiovascular Disease
DX: I38 Endocarditis, valve unspecified (principal); I25.10 Atherosclerotic heart disease of native coronary artery without angina pectoris; I10 Essential (primary) hypertension; E78.5 Hyperlipidemia, unspecified; Z95.1 Presence of aortocoronary bypass graft
CPT/HCPCS: 93306

== ENCOUNTER 2020-05-20 08:50 | Day surgery (SDC) | payer MEDICARE, SELFPAY ==
[2020-05-04 15:19] VITALS: BMI 24.0
--- NOTE | 2020-05-13 11:11 | EKG12_ITS ---
Test Reason : PRE-OP Blood Pressure : / mmHG Vent. Rate : 059 BPM Atrial Rate : 059 BPM P-R Int : 152 ms QRS Dur : 088 ms QT Int : 414 ms P-R-T Axes : 078 035 025 degrees QTc Int : 409 ms Sinus bradycardia Otherwise normal ECG Confirmed by KASH BEGUM, IFRAH ([id number]), food editor PHUONG SAEZ ([id number]) on 05/17/2020 2:03:43 PM Referred By: Kenji Bryan Confirmed By:LUCAS HEWITT MD
[2020-05-13 11:35] LABS: Hemoglobin 13.5 g/dL (12.0-15.0); Mean Corp Hgb Conc 32.1 g/dL (32-36); Mean Corpuscular Hgb 31.9 pg (27.0-32.0); Mean Corpuscular Volume 99.3 fL (81-99); Mean Platelet Vol. 10.3 fl (6.2-12.0); Platelet Count 270 K/mm3 (150-450); RBC Distribution Width CV 12.7 % (11.6-14.6); RBC Distribution Width SD 45.6 fl (35.1-43.9); Red Blood Count 4.23 M/mm3 (4.2-5.4); White Blood Count 5.8 K/mm3 (4.4-11.0)
[2020-05-13 12:02] LABS: Anion Gap 3 (5-15); BUN 16 mg/dL (7-18); BUN/Creat Ratio 18.2 RATIO (10-20); Calcium,Total 8.9 mg/dL (8.5-10.1); Chloride 103 mmol/L (98-107); Creatinine, Serum 0.88 mg/dL (0.55-1.02); EST Glomerular Filtration Rate 65 mL/min (>60); Est Glom Filt Rate - Afr Amer 79 mL/min (>60); Glucose 97 mg/dL (74-106); Potassium 4.1 mmol/L (3.5-5.1); Sodium Level 135 mmol/L (136-145)
[2020-05-20] VITALS (9 sets, daily range): BP systolic 166–193; BP diastolic 59–90; PULSE 57–65; RESP 15–18; TEMP 36.2–36.9; O2SAT 96–100; BMI 23.1
--- NOTE | 2020-05-20 | HEM_PTH ---
PATIENT: MELISSA AHUMADA LOC: [facility] U#:[id number] AGE/SX: 85/F ROOM: RE05/20/[address]: Dr. Kenji Bryan MD : 1935 BED: DIS: 05/20/2020 SPEC #: [id number] RECD: 05/21/20 08:33 STATUS: BRANDY REJose #: [id number] ERIKA: 05/20/20 00:[address]: Kenji Bryan DEPT: SURGICAL PATHOLOGY RECD BY: Imer Pretty ENTERED: 05/21/20 08:33 SP TYPE: HEMORRHOID OTHR DR: Dr. Zack Veloz MD Tissues: HEMORRHOIDS Procedures: Surgery Specimen Level III HEADER OPERATION: Colonoscopy, hemorrhoidectomy PRE-OP DIAGNOSIS: Hemorrhoids TISSUE SUBMITTED: Hemorrhoids MICROSCOPIC DIAGNOSIS Hemorrhoid, hemorrhoidectomy: Pieces of anorectal mucosa with dilated and congested blood vessels, consistent with hemorrhoid. SJ:kale 05/24/20 MICROSCOPIC DESCRIPTION Slides are reviewed. GROSS DESCRIPTION Received in fixative is one container labeled with the patient's name and designated hemorrhoid. The specimen consists of two irregular fragments of light miranda, glistening mucosa with attached hemorrhagic submucosal tissue that in aggregate measure 4 x 3.5 x 1.3 cm. No mass lesions are identified. Foreign Collection Clerk sections are submitted in one cassette. / AM:kale 05/21/20 TC:5 CPT: 39040
--- NOTE | 2020-05-20 | COLBX_PTH ---
PATIENT: MELISSA AHUMADA LOC: [facility] U#:[id number] AGE/SX: 85/F ROOM: RE05/20/[address]: Dr. Kenji Bryan MD : 1935 BED: DIS: 05/20/2020 SPEC #: [id number] RECD: 05/20/20 12:24 STATUS: BRANDY PARVEEN #: [id number] ERIKA: 05/20/20 00:[address]: Kenji Bryan DEPT: SURGICAL PATHOLOGY RECD BY: Imer Pretty ENTERED: 05/20/20 12:25 SP TYPE: COLON BX OTHR DR: Dr. Zack Veloz MD Tissues: Transverse colon Procedures: Surgery Specimen Level IV HEADER OPERATION: Colonoscopy, hemorrhoidectomy PRE-OP DIAGNOSIS: Internal prolapsed hemorrhoids; rectal bleeding; family history colon cancer TISSUE SUBMITTED: Distal transverse polyp biopsy MICROSCOPIC DIAGNOSIS Distal transverse polyp, biopsy: A fragment of colonic mucosa with changes consistent with focal acute colitis. See microscopic description and comment. SERGIO:kale 05/21/20 COMMENT Correlation with clinical, endoscopic findings and appropriate follow up are necessary. Case has been reviewed in consultation with Dr. Rodriguez who concurs with the above diagnosis. IDC:AM MICROSCOPIC DESCRIPTION Slides are reviewed. The specimen shows a fragment of colonic mucosa with moderate increase of chronic inflammatory cell infiltrates in the lamina propria, minimal acute inflammatory cell infiltrate (neutrophils) and focal cryptitis. Significant glandular distortion, crypt abscesses or granulomas are not seen. Adenomatous changes are not seen. GROSS DESCRIPTION Received in fixative is one container labeled with the patient's name and designated distal transverse polyp. The specimen consists of one irregular fragment of light miranda soft tissue that measures 0.3 x 0.3 x 0.1 cm. The specimen is totally submitted in one cassette. / SERGIO:kale 05/20/20 TC:2 CPT: 38068
--- NOTE | 2020-05-20 09:59 | HP.PCM_ITS ---
Problem List (1) Internal prolapsed hemorrhoids Status: Acute (2) Rectal bleeding Status: Acute (3) Family hx of colon cancer Status: Acute History and Physical Date of Admission: 05/20/20 Intake Visit Reasons: SCREENING C-SCOPE Chief Complaint: rectal bleeding Multicut Line Operator Required: No Accompanied by: Is patient in pain?: No Allergies No Known Allergies Allergy (Verified 05/04/20 15:17) Medications aspirin 81 mg tablet,delayed release 81 mg PO QDAY 03/04/18 [History Confirmed 05/04/20] nitroglycerin 0.4 mg sublingual tablet 0.4 mg SUBLINGUAL Q5M PRN 03/04/18 [History Confirmed 05/04/20] folic acid 400 mcg tablet 0.4 mg PO QDAY #25 tab 03/12/18 [Rx Confirmed 05/04/20] metoprolol tartrate 25 mg tablet 25 mg PO BID #180 tab 08/19/19 [Rx Confirmed 05/04/20] rosuvastatin 40 mg tablet 40 mg PO QDAY #90 tab 08/19/19 [Rx Confirmed 05/04/20] ramipril 10 mg capsule 10 mg PO BID #180 cap 04/12/20 [Rx Confirmed 05/04/20] calcium carbonate 600 mg calcium (1,500 mg) tablet 600 mg PO DAILY tab 05/04/20 [History Confirmed 05/04/20] [facility] Medical History 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 Mother CAD (coronary artery disease) Asthma Brother CAD (coronary artery disease) Cancer Social History (Updated 05/04/20 @ 16:[address] Kenji Bryan MD) Smoking Status: Never smoker alcohol intake: current alcohol intake frequency: holidays/special occasions only substance use type: does not use caffeine: No what type of physical activity do you participate in: walking frequency: daily duration: 45-60 minutes/day HPI HPI HPI: MELISSA AHUMADA, is a 85 F who presents to the office today for surgical consultation regarding rectal bleeding. The patient is referred by her primary care physician Dr. Zack Veloz and a written compromise surgical consult recomme ndations will be returned to him. 4 several weeks now the patient's had bright red rectal bleeding. She occasionally has pain. She feels that it is her hemorrhoids again. I have evidence going back to July 21, 2009 where I did a PPH stapled hemorrhoidopexy for rectal bleeding. The patient states that she has been on fiber supplementation since that time. It is only recently that she has had recurrence of the bleeding. However the bleeding can be profuse enough to where she has to routinely wear pads. She says that she notes blood every single time she wipes. She does have a family history with a brother who had colon cancer and actually of it. Her most recent colonoscopy was performed by myself 08/24/2015. That was done with midazolam and meperidine and Zofran. My note states that I proceeded without difficulty. Multiple diverticula were noted throughout the colon. There are evidence of the prior stapled hemorrhoidopexy. Internal hemorrhoids again noted. The patient has had coronary bypass surgery x5. She has some mitral valve insufficiency. Her lasting machine operator is Dr. Huey Reddy. She does take a low- dose aspirin therapy. She otherwise enjoys an incredibly active quality of life for 85 years of age. She denies chest pain or shortness of breath. No abdominal pain. HPI HPI HPI: MELISSA AHUMADA, is a 85 F who presents to the office today for ROS General General: No weight change, appetite, fatigue, colon cancer, breast cancer or weakness HEENT HEENT: No difficulty swallowing, eye injury, eye surgery, swollen glands or hoarseness Endo Endocrine: No thyroid disease, diabetes mellitus, thyroid cancer, Hair loss, heat intolerance or cold intolerance Skin Skin: No rash or changing moles Breast Breast: No left breast lump, right breast lump, nipple discharge, breast pain, abnormal mammogram, abnormal US or breast enlargement Musc Musculoskeletal: No back problems, arthritis, rheumatoid arthritis, gout or joint pain Cardio Cardiovascular: Yes murmur, heart disease and high blood pressure; no pacemaker, atrial fibrillation, heart attack, heart stent, palpitations, shortness of breat with exertion or chest pain Psych Psychiatric: No depression, anxiety or hearing voices Resp Respiratory: No shortness of breath, No sleep apnea, Yes cough, No COPD, No asthma, No emphysema, No wheezing Gastro Gastrointestinal: No abdominal pain, No nausea or vomiting, No diarrhea, No constipation, Yes blood in stool, No acid reflux, Yes hemorrhoids, No ulcers, No gallbladder problem, No black,tarry stools Tariq Hematologic: No blood thinners, No blood disorders, Yes bleeding, No anemia, No blood clots Neuro Neurologic: No system reviewed and no additional complaints, except as docu, No as per HPI, No abnormal walking, No abnormal hearing, No abnormal movements, No abnormal speech, No behavioral changes, No burning sensations, No confusion, No seizure-like activity, No unsteadiness, No dizziness, No localized weakness, No frequent falls, No headache(s), No lack of coordination, No loss of vision, No memory loss, No numbness, No other visual disturbances, No radiating pain, No restless legs, No sensory deficit, No fainting, No tingling, No tremor(s), No weakness, No other Exam Const General: cooperative, healthy appearing, comfortable, no acute distress Nutritional Appearance: average body habitus Orientation: alert, awake [facility] Head: normal to inspection Eyes General: appearance normal, both eyes and all related structures Chest Breast Palpation: No nipple discharge Resp Effort & Inspection: normal respiratory effort Auscultation: clear to auscultation bilaterally Cardio Rate: regular rate Rhythm: regular rhythm Heart Sounds: murmur Other: 2/6 systolic ejection murmur GI Palpation: soft, no hepatosplenomegaly Auscultation: normal bowel sounds Other: Anal inspection reveals some prolapsing internal hemorrhoid tissue left lateral. Some external hemorrhoidal tags noted. The prolapsing internal tissue appears slightly irritated. Musc Other: Mild kyphosis Skin Other: Bilateral lower extremities demonstrate mild edema and evidence of recent dermatologic surgical skin lesion treatment Neuro Cognition: normal cognition Extrem Other: 1-2+ left lower extremity edema. 1+ right lower extremity edema. Nontender Psych Affect: normal affect Assessment & Plan Problems 1. Family hx of colon cancer Z80.0 2. Rectal bleeding K62.5 3. Internal prolapsed hemorrhoids K64.8 Plan Because of the rectal bleeding and the family history of colon cancer in a brother I recommend to the patient a colonoscopy with possible biopsy or polypectomy as indicated. Clearly she has recurrent prolapsed likely bleeding internal hemorrhoids worse left lateral. I have offered her consideration for combined colonoscopy with surgical hemorrhoidectomy and in detail I discussed the technique, benefit, risk and alternatives. I have instructed the patient that a repeat stable procedure is not possible. She has had an opportunity to ask and have questions answered. She is aware that the [facility] is reporting a low local incidence of Covid-19 currently. She will consider her treatment options. She is aware that I would anticipate using a longer acting local anesthetic for the hemorrhoidectomy if we were to proceed. I am impressed by her overall good quality of life. We will confer with Dr. Huey Reddy to assure proceeding with surgical intervention would be reasonable from a cardiac standpoint. She will consider her treatment options and instructed as to how she would like to proceed. I very much appreciate the kind opportunity of continue to assist with her surgical care. Cc: Dr. Zack Velzo and Dr. Huey Bryan M.D., F.A.C.S. Coding Level of Care Code 59203 Diagnoses Family hx of colon cancer Z80.0 Rectal bleeding K62.5 Internal prolapsed hemorrhoids K64.8 I have re-examined the patient. There are no clinical changes since date of exam. Procedure Criteria Procedure Type: Elective COVID Risk Discussion: The surgeon/proceduralist and patient have discussed in detail the risk of exposure to and/or potential harm posed by the COVID-19 virus with having a surgery/procedure at this time versus the risk of delaying the surgery/procedure. It is not possible to know either the risk of delaying the surgery or procedure or chance of getting an infection with perfect accuracy, but a joint decision was made between the patient and the surgeon/proceduralist to proceed at this time with the scheduled surgery/procedure as indicated on the consent form.
--- NOTE | 2020-05-20 10:00 | PCM.DC.REC ---
Discharge Diet: No Restrictions Discharge Activity: Return to Normal Activity, May Not Drive - while you are taking narcotic pain medications. Do not drive, work with heavy equipment or sign legal documents for 24 hours after your surgery. Additional Activity Instructions:: You may utilize sitz baths in warm soapy water at 20 minutes a time for comfort and hygiene. You may remove the Vaseline gauze tomorrow morning. I encourage the daily use of fiber supplementation in the form of Metamucil or Citrucel or FiberCon or Benefiber or generic. Mineral oil 30 cc or 1 ounce in food or juice daily for 1 week. Dibucaine ointment will be provided and can be used every 2-4 hours as needed for comfort Allergies/Adverse Reactions: Allergies No Known Allergies Allergy (Verified 05/20/20 09:37) Medications to take at Discharge aspirin 81 mg tablet,delayed release 81 mg PO QDAY 03/04/18 nitroglycerin 0.4 mg sublingual tablet 0.4 mg SUBLINGUAL Q5M PRN 03/04/18 calcium carbonate 600 mg calcium (1,500 mg) tablet 600 mg PO DAILY tab 05/04/20 folic acid 400 mcg tablet 0.4 mg PO QDAY #25 tab 05/06/20 Metoprolol Tartrate [Lopressor (beta sandra)] 25 mg PO BID 05/13/20 Psyllium Husk (with Sugar) [Fiber Therapy Powder] 368 gm PO DAILY 05/13/20 Ramipril 10 mg PO BID 05/13/20 Rosuvastatin Calcium 40 mg PO QHS 05/13/20 Orders to be completed after discharge: 12 Lead EKG [[facility]] Time Frame: 05/13/20, Facility: [facility], Location: Cardiovascular Services Primary Care Physician: Zack Veloz MD [Primary Care Provider] - Test Results: Test results from this visit will be discussed in further detail at your follow-up appointment, if applicable. Please Follow Up With: Kenji Bryan MD - [phone] When: Plan to have a follow up approximately 3 weeks after surgery.
[2020-05-20] MEDS: Lactated Ringers 1,000 ML 100 ML IV (10:03)
[2020-05-20] MEDS: Lubricating Jelly 60 GM Tube 30 GM TOPICAL (11:25)
[2020-05-20] MEDS: Dibucaine 30 GM Tube 1 APPLIC (11:54)
[2020-05-20] MEDS: BUPIVACAINE LIPOSOME/PF 20 ML VIAL OPERA.SITE (11:55)
[2020-05-20] MEDS: Bupivacaine Mpf 0.5% 30 ML VIAL (11:55)
--- NOTE | 2020-05-20 12:03 | PCM.OPRPT ---
Problem List (1) Internal prolapsed hemorrhoids Status: Acute (2) Rectal bleeding Status: Acute (3) Family hx of colon cancer Status: Acute Report of Operation Date of Procedure: 05/20/20 Pre-Operative Diagnosis: Rectal bleeding, hemorrhoids Post-Operative Diagnosis: Rectal bleeding secondary to thrombosed internal and external hemorrhoids. Pancolonic diverticulosis. Sessile polyp of the distal transverse colon Surgery/Procedure Performed:: Colonoscopy with cold forcep polypectomy. Note transcribed in provation. Hemorrhoidectomy, extensive Description of Surgical Findings:: Timeout and informed consent was obtained. The patient was taken to the operating room. She underwent general endotracheal intubation anesthesia. She was initially placed in a left lateral decubitus position and a colonoscopy was performed. Note is dictated in provation. Subsequently placed in a prone jackknife position with careful shoulder and pelvic rolls. The perianal was sterilely prepped and draped. She received 900 mg of clindamycin intravenously. Inspection revealed right posterior lateral extensive thrombosis and bleeding of internal hemorrhoids prolapsing and involving external tissue. Also right anterior there was exuberant internal hemorrhoidal tissue. Each of these areas were wedge excised. Apical sutures of 2-0 chromic placed. Harmonic scalpel was used to perform the resection. Great care was taken to preserve the sphincter mechanism. The mucosa was then approximated with a running locking 2-0 chromic. Additional qknffp-[id number]-dynzz sutures of 0 Vicryl were placed at the apex to further secure hemorrhoidal vein venous inflow. At the completion the vast bulk of the hemorrhoidal tissue had been removed. I did not excise additional tissue as I felt I had taken what could be tolerated without causing stricturing and stenosis. Hemostasis was nicely intact. The perianal rectal area was then anesthetized with 20 cc of Exparel mixed with 20 cc of 0.5% Marcaine. Vaseline gauze treated with dibucaine ointment was inserted. Sterile covered dressings applied. She was then subsequently taken to the recovery room in satisfactory condition without apparent complication. Specimens hemorrhoids. Drains none. Blood loss 20 cc. Kenji Bryan M.D., F.A.C.S. Type of Anesthesia:: General Anesthesiologist: Gerald Villanueva
--- NOTE | 2020-05-20 12:04 | OP.COLON_ITS ---
Patient Name: Nicole Stevenson Procedure Date: 05/20/2020 10:28 AM Date of : 1935 Age: 85 Procedure: Colonoscopy Indications: Rectal bleeding Providers: Kenji Bryan MD Referring MD: Kenji Bryan MD Medicines: See the Anesthesia note for documentation of the administered medications Patient Profile: Last Colonoscopy: date unknown. Complications: No immediate complications. Procedure: Pre-Anesthesia Assessment: - Prior to the procedure, a History and Physical was performed, and patient medications and allergies were reviewed. The patient's tolerance of previous anesthesia was also reviewed. The risks and benefits of the procedure and the sedation options and risks were discussed with the patient. All questions were answered, and informed consent was obtained. Prior Anticoagulants: The patient has taken aspirin, last dose was 1 day prior to procedure. ASA Grade Assessment: II - A patient with mild systemic disease. After reviewing the risks and benefits, the patient was deemed in satisfactory condition to undergo the procedure. After I obtained informed consent, the scope was passed under direct vision. Throughout the procedure, the patient's blood pressure, pulse, and oxygen saturations were monitored continuously. The Colonoscope was introduced through the anus and advanced to the cecum, identified by appendiceal orifice and ileocecal valve. The colonoscopy was performed without difficulty. The patient tolerated the procedure well. The quality of the bowel preparation was good. The ileocecal valve and the appendiceal orifice were photographed. Scope In: 10:49:16 AM Scope Withdrawal Time 0 hours 8 minutes 12 seconds Scope Out: 11:06:46 AM Total Procedure Duration Time 0 hours 17 minutes 30 seconds Findings: The digital rectal exam findings include non-thrombosed external hemorrhoids, thrombosed internal hemorrhoids and internal hemorrhoids that do not return to the anal canal, thus continuously prolapsed (Grade IV). A 5 mm polyp was found in the distal transverse colon. The polyp was sessile. The polyp was removed with a cold biopsy forceps. Resection and retrieval were complete. Multiple diverticula were found in the entire colon. Impression: - Non-thrombosed external hemorrhoids, thrombosed internal hemorrhoids and internal hemorrhoids that do not return to the anal canal, thus continuously prolapsed (Grade IV) found on digital rectal exam. - One 5 mm polyp in the distal transverse colon, removed with a cold biopsy forceps. Resected and retrieved. - Diverticulosis in the entire examined colon. Recommendation: - Discharge patient to home. - Resume previous diet. - Continue present medications. - Repeat colonoscopy in 5 years for surveillance based on pathology results. - Return to my office in 3 weeks. Procedure Code(s): --- Professional --- 33248, Colonoscopy, flexible; with biopsy, single or multiple Diagnosis Code(s): --- Professional --- K64.3, Fourth degree hemorrhoids K64.5, Perianal venous thrombosis D12.3, Benign neoplasm of transverse colon (hepatic flexure or splenic flexure) K62.5, Hemorrhage of anus and rectum K57.30, Diverticulosis of large intestine without perforation or abscess without bleeding CPT copyright 2017 [employer]. All rights reserved. The codes documented in this report are preliminary and upon cylinder honer review may be revised to meet current compliance requirements. Kenji Bryan MD 05/20/2020 12:03:18 PM This report has been signed electronically. Number of Addenda: 0 Note Initiated On: 05/20/2020 10:28 AM
--- NOTE | 2020-05-20 12:04 | OP.CCLET_ITS ---
05/20/2020 Zack Veloz [address] [place] [address] Re : Colonoscopy procedure for Nicole Stevenson Dear Dr. Veloz This procedure was performed on May. My impressions and recommendations are as follows: Impressions : - Non-thrombosed external hemorrhoids, thrombosed internal hemorrhoids and internal hemorrhoids that do not return to the anal canal, thus continuously prolapsed (Grade IV) found on digital rectal exam. - One 5 mm polyp in the distal transverse colon, removed with a cold biopsy forceps. Resected and retrieved. - Diverticulosis in the entire examined colon. Recommendations : - Discharge patient to home. - Resume previous diet. - Continue present medications. - Repeat colonoscopy in 5 years for surveillance based on pathology results. - Return to my office in 3 weeks. My findings are described in the full procedure note, which is enclosed. If I can be of further assistance, please feel free to contact me at Doctor phone number(s): Work: . Sincerely, Kenji Bryan MD 05/20/2020 12:03:18 PM This report has been signed electronically.
== END 2020-05-20 14:53 | disposition home or self-care (01) ==
LOC: SDC 08:51 → AC 08:56
PROVIDERS: Anesthesiology; PCP Family Medicine; Referring Provider Surgery; Visit Provider Surgery
PROC: (CPT 45380; principal; 2020-05-20 10:45)
PROC: 0DJD8ZZ Inspection of Lower Intestinal Tract, Via Natural or Artificial Opening Endoscopic (ICD-10-PCS; CPT 45378; principal; 2020-05-20 10:55)
DX: K64.3 Fourth degree hemorrhoids (principal); K64.5 Perianal venous thrombosis; D12.3 Benign neoplasm of transverse colon; K62.5 Hemorrhage of anus and rectum; K64.4 Residual hemorrhoidal skin tags; K57.30 Diverticulosis of large intestine without perforation or abscess without bleeding; Z11.59 Encounter for screening for other viral diseases; I25.10 Atherosclerotic heart disease of native coronary artery without angina pectoris; I10 Essential (primary) hypertension; E78.5 Hyperlipidemia, unspecified; Z78.0 Asymptomatic menopausal state; Z79.82 Long term (current) use of aspirin; Z79.899 Other long term (current) drug therapy; Z85.828 Personal history of other malignant neoplasm of skin; Z95.1 Presence of aortocoronary bypass graft; Z80.0 Family history of malignant neoplasm of digestive organs
CPT/HCPCS: 00902; 45380; 46260; 36415; 80048; 85027; 87635; 88304; 88305; 93005; 94799; J7120; J2405; U0003

== ENCOUNTER → 2020-06-10 09:51 | Outpatient (CLI) | payer MEDICARE, SELFPAY ==
[2020-05-20 09:38] VITALS: BMI 23.1
== END ==
PROVIDERS: PCP Family Medicine; Referring Provider Surgery; Visit Provider Surgery
DX: R35.0 Frequency of micturition (principal)

== ENCOUNTER → 2020-09-29 11:06 | Outpatient (CLI) | payer MEDICARE, SELFPAY ==
[2020-05-20 09:38] VITALS: BMI 23.1
--- NOTE | 2020-09-29 11:07 | BI_ITS ---
MAMMOGRAPHY - BILATERAL SCREENING REASON FOR EXAM: Female, 85 years old. Routine annual screening examination. PERTINENT HISTORY: Non-contributory. TECHNIQUE: Digital bilateral breast melissa (3D mammographic acquisition) in the CC and MLO projections. 2-D mediolateral oblique (MLO) and craniocaudad (CC) views of both breasts were obtained. CAD: Full Field Digital Mammography with Computer Added Detection was performed. COMPARISON: Comparison is made with prior study 06/07/2018 and 03/09/2017. FINDINGS: Breast Composition: There are scattered areas of fibroglandular density. There are no dominant masses or suspicious calcifications. Stable small benign appearing bilateral axillary lymph nodes. No other significant abnormalities are identified. There has been no significant change since the prior study. BI/SCREEN MAMM (CAD) W/MELISSA BILAT IMPRESSION: Stable bilateral screening mammogram. Yearly follow-up mammogram recommended. (A) ASSESSMENT CATEGORY: BIRADS Category 2: Benign. A letter regarding these results will be sent to the patient by the facility within 30 days. Approximately 10% of breast cancers are not detected by mammography. A normal mammogram should not delay biopsy of a clinically suspicious abnormality. [id number] Electronically Signed: Tarnu Lane, at 12:24 EST , Service support ,
--- NOTE | 2020-09-29 11:17 | BD_ITS ---
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 COMPARISON: Comparison is made with prior study dated 08/22/2012. FINDINGS: Lumbar Spine (L1-L4): g/cm2 (1.011) / T-score (-1.4) / Z-score (0.5) Findings are suggestive of osteopenia with a low fracture risk. Left Femur Total: g/cm2 (0.729) / T-score (-2.2) / Z-score (0.0) Left Femoral Neck: g/cm2 (0.771) / T-score (-1.9) / Z-score (0.4) Right Femur Total: g/cm2 (0.672) / T-score (-2.7) / Z-score (-0.5) Right Femoral Neck: g/cm2 (0.705) / T-score (-2.4) / Z-score (-0.1) The T-Scores on the most recent prior examination were: Lumbar Spine (L1-L4): There has been improvement of bone density since the previous examination. Left Femur Total: which represents a worsening of 1.8%. Right Femur Total: which represents a worsening of 9.3%. BD/Dexa Bone Density Study IMPRESSION: The patient is considered osteoporotic as outlined below according to [employer] [place] Organization (WHO) criteria with a high fracture risk. There has been worsening of bone density since the previous examination. Reference Information: The T-score is the number of standard deviations above or below the standard which is normal for young adults at their peak bone mineral density. The World Health Organization (WHO) interprets the T-scores as follows: Above -1 Normal bone density Between -1 and -2.5 Osteopenia Equal to / or below -2.5 Osteoporosis As a practical clinical guideline, osteopenia may be graded as follows: Mild -1 through -1.5 Moderate -1.6 through -2.0 Severe -2.1 through -2.4 The Z-score is the number of standard deviations above or below age-matched controls. A Z-score of less than -1.5 would be considered abnormal. References: 1. NIH Osteoporosis and Related Bone Diseases www osteo.org 2. International Society for Clinical Densitometry www iscd.org 3. National Osteoporosis Foundation www nof.org Electronically Signed: Tarun Lane, at 15:25 EST , Service support ,
== END ==
PROVIDERS: PCP Family Medicine; Referring Provider Family Medicine; Visit Provider Family Medicine
DX: Z12.31 Encounter for screening mammogram for malignant neoplasm of breast (principal); M81.0 Age-related osteoporosis without current pathological fracture; Z78.0 Asymptomatic menopausal state; Z87.81 Personal history of (healed) traumatic fracture
CPT/HCPCS: 77063; 77067; 77080

== ENCOUNTER → 2020-10-04 09:26 | Outpatient (CLI) | payer MEDICARE, SELFPAY ==
[2020-10-04 10:40] LABS: AST(SGOT) 20 U/L (15-37); Alanine Aminotransfer ALT/SGPT 21 U/L (13-56); Albumin, Serum 3.6 g/dL (3.2-5.0); Alkaline Phosphatase 86 U/L (45-117); Bilirubin, Direct 0.28 mg/dL (0.00-0.30); Cholesterol 145 mg/dL (200); Globulin 3.6 g/dL (2.2-4.2); High Density Lipoprotein 54 mg/dL; Protein, Total 7.2 g/dL (6.4-8.2); Triglycerides 108 mg/dL; Very Low Density Lipoprotein 22 mg/dL (5-40)
== END ==
PROVIDERS: PCP Family Medicine; Visit Provider Internal Medicine Cardiovascular Disease
DX: E78.5 Hyperlipidemia, unspecified (principal)
CPT/HCPCS: 36415; 80061; 80076

== ENCOUNTER 2020-11-04 10:00 | Outpatient (RCR) | payer MEDICARE, SELFPAY ==
[2020-10-11 15:24] VITALS: BMI 24.3
== END 2020-11-04 23:59 ==
LOC: IMMUN 10:00
PROVIDERS: PCP Family Medicine; Visit Provider Family Medicine
DX: Z23 Encounter for immunization (principal)
CPT/HCPCS: 0011A; 0012A; 91301

== ENCOUNTER → 2020-12-29 10:09 | Outpatient (CLI) | payer MEDICARE, SELFPAY ==
[2020-10-11 15:24] VITALS: BMI 24.3
[2020-12-29 11:44] LABS: Anion Gap 4 (5-15); BUN 15 mg/dL (7-18); BUN/Creat Ratio 16.5 RATIO (10-20); Calcium,Total 9.3 mg/dL (8.5-10.1); Chloride 96 mmol/L (98-107); Creatinine, Serum 0.91 mg/dL (0.55-1.02); EST Glomerular Filtration Rate 63 mL/min (>60); Est Glom Filt Rate - Afr Amer 76 mL/min (>60); Glucose 111 mg/dL (74-106); Potassium 4.4 mmol/L (3.5-5.1); Sodium Level 130 mmol/L (136-145)
== END ==
PROVIDERS: PCP Family Medicine; Referring Provider Nurse Practitioner Family; Visit Provider Nurse Practitioner Family
DX: I10 Essential (primary) hypertension (principal); R60.0 Localized edema
CPT/HCPCS: 36415; 80048

== ENCOUNTER → 2021-01-19 10:03 | Outpatient (CLI) | payer MEDICARE, SELFPAY ==
[2020-10-11 15:24] VITALS: BMI 24.3
[2021-01-19 11:07] LABS: AST(SGOT) 23 U/L (15-37); Alanine Aminotransfer ALT/SGPT 19 U/L (13-56); Albumin, Serum 3.6 g/dL (3.2-5.0); Alkaline Phosphatase 78 U/L (45-117); Bilirubin, Direct 0.33 mg/dL (0.00-0.30); Cholesterol 152 mg/dL (200); Globulin 3.7 g/dL (2.2-4.2); High Density Lipoprotein 56 mg/dL; Protein, Total 7.3 g/dL (6.4-8.2); Triglycerides 128 mg/dL; Very Low Density Lipoprotein 26 mg/dL (5-40)
[2021-01-19 11:09] LABS: Anion Gap 4 (5-15); BUN 14 mg/dL (7-18); BUN/Creat Ratio 15.4 RATIO (10-20); Calcium,Total 8.9 mg/dL (8.5-10.1); Chloride 96 mmol/L (98-107); Creatinine, Serum 0.91 mg/dL (0.55-1.02); EST Glomerular Filtration Rate 63 mL/min (>60); Est Glom Filt Rate - Afr Amer 76 mL/min (>60); Glucose 102 mg/dL (74-106); Sodium Level 129 mmol/L (136-145)
[2021-01-20 08:40] LABS: Thyroid Stim Hormone (TSH) 2.32 uIU/mL (0.358-3.74)
== END ==
PROVIDERS: Internal Medicine Cardiovascular Disease; PCP Family Medicine; Referring Provider Nurse Practitioner Family; Visit Provider Nurse Practitioner Family
DX: E78.5 Hyperlipidemia, unspecified (principal); E87.1 Hypo-osmolality and hyponatremia
CPT/HCPCS: 36415; 80048; 80061; 80076; 84443

== ENCOUNTER → 2021-01-24 09:59 | Outpatient (CLI) | payer MEDICARE, SELFPAY ==
[2020-10-11 15:24] VITALS: BMI 24.3
[2021-01-24 10:42] LABS: Urine Sodium 83 mmol/L (Not Establ.)
[2021-01-24 11:10] LABS: PTHIN 72.5 pg/mL (18.4-80.1)
[2021-01-24 11:12] LABS: ALB/GLOB Ratio 0.9 RATIO (0.9-2.4); AST(SGOT) 25 U/L (15-37); Alanine Aminotransfer ALT/SGPT 19 U/L (13-56); Albumin, Serum 3.7 g/dL (3.2-5.0); Alkaline Phosphatase 87 U/L (45-117); Anion Gap 4 (5-15); BUN 14 mg/dL (7-18); BUN/Creat Ratio 16.5 RATIO (10-20); Calcium,Total 9.1 mg/dL (8.5-10.1); Chloride 100 mmol/L (98-107); Creatinine, Serum 0.85 mg/dL (0.55-1.02); EST Glomerular Filtration Rate 68 mL/min (>60); Est Glom Filt Rate - Afr Amer 82 mL/min (>60); Globulin 3.9 g/dL (2.2-4.2); Glucose 100 mg/dL (74-106); Protein, Total 7.6 g/dL (6.4-8.2); Sodium Level 134 mmol/L (136-145)
[2021-01-24 12:29] LABS: Osmolality, Serum 286 mOsm/KG (280-301); Osmolality, Urine 533 mOsm/KG
== END ==
PROVIDERS: PCP Family Medicine; Referring Provider Family Medicine; Visit Provider Family Medicine
DX: E78.00 Pure hypercholesterolemia, unspecified (principal); E87.1 Hypo-osmolality and hyponatremia
CPT/HCPCS: 36415; 80053; 83930; 83935; 83970; 84300

== ENCOUNTER → 2021-01-28 | Outpatient (CLI) | payer MEDICARE, SELFPAY ==
[2020-10-11 15:24] VITALS: BMI 24.3
== END | disposition home or self-care (01) ==
PROVIDERS: PCP Family Medicine; Referring Provider Registered Nurse; Visit Provider Registered Nurse
DX: R30.0 Dysuria (principal)
CPT/HCPCS: 87086; 87088; 87186

== ENCOUNTER → 2021-08-24 09:36 | Outpatient (CLI) | payer MEDICARE, SELFPAY ==
[2021-08-24 10:35] LABS: Microalbumin,Random Urine 19.2 mg/L (NO RANGE EST.); Microalbumin:Creatinine Ratio 14.9 mg/g CRE (<30 mg/g CRE)
[2021-08-24 11:31] LABS: Osmolality, Serum 287 mOsm/KG (280-301)
[2021-08-24 11:41] LABS: ALB/GLOB Ratio 0.8 RATIO (0.9-2.4); AST(SGOT) 24 U/L (15-37); Alanine Aminotransfer ALT/SGPT 17 U/L (13-56); Albumin, Serum 3.2 g/dL (3.2-5.0); Alkaline Phosphatase 85 U/L (45-117); Anion Gap 7 (5-15); BUN 14 mg/dL (7-18); BUN/Creat Ratio 16.4 RATIO (10-20); Chloride 106 mmol/L (98-107); Cholesterol 141 mg/dL (200); Creatinine, Serum 0.85 mg/dL (0.55-1.02); EST Glomerular Filtration Rate 67 mL/min (>60); Est Glom Filt Rate - Afr Amer 82 mL/min (>60); Glucose 100 mg/dL (74-106); High Density Lipoprotein 52 mg/dL; Potassium 4.3 mmol/L (3.5-5.1); Protein, Total 7.2 g/dL (6.4-8.2); Sodium Level 138 mmol/L (136-145); Triglycerides 82 mg/dL; Very Low Density Lipoprotein 16 mg/dL (5-40)
== END ==
PROVIDERS: Nurse Practitioner Family; PCP Family Medicine; Referring Provider Family Medicine; Visit Provider Family Medicine
DX: E87.1 Hypo-osmolality and hyponatremia (principal); E78.5 Hyperlipidemia, unspecified
CPT/HCPCS: 36415; 80053; 80061; 82043; 82570; 83930

== ENCOUNTER → 2021-09-14 14:39 | Outpatient (CLI) | payer MEDICARE, SELFPAY ==
--- NOTE | 2021-09-14 14:45 | ECHOD_ITS ---
Reason For Study: Murmur Procedure This was a 2D Doppler, Color Flow transthoracic echocardiogram. The study was technically difficult. Exam performed in department. Left Ventricle Normal LV size. Left ventricular systolic function is normal. The estimated ejection fraction is 65 %. Diastolic function is indeterminate. No regional wall motion abnormalities noted. Right Ventricle Normal RV size. Normal systolic function. Atria The left atrium is mildly enlarged. Normal right atrium. No doppler evidence for ASD. Mitral Valve There is mild to moderate mitral annular calcification. Extension of the mitral annular calcification onto the base of the posterior mitral valve leaflet. Mild-Moderate (1-2+) mitral valve insufficiency. Tricuspid Valve Normal tricuspid valve. Mild tricuspid valve insufficiency. Right ventricular systolic pressure estimated to be 37 mmHg. Aortic Valve Trisinus/trileaflet aortic valve. Mild diffuse aortic valve thickening. Mild focal aortic valve calcification. Mild to moderate aortic stenosis. Pulmonic Valve The pulmonic valve is not well visualized. Mild (1+) pulmonic valve insufficiency. Great Vessels Normal sized aortic root. Pericardium/Pleural No pericardial effusion. MMode/2D Measurements & Calculations LVIDd: 3.8 cm IVSd: 0.84 cm LVOT diam: 2.0 cm LVIDs: 1.8 cm LVPWd: 0.76 cm LVOT area: 3.1 cm2 FS: 53.5 % Ao root diam: 3.0 cm LAV(MOD-bp): 38.7 ml Aortic Valve Planimetry: 0.99 cm2 LA dimension: 3.5 cm LAV(MOD-bp) Indexed: 24.5 ml/m2 LAV(MOD-sp2): 39.6 ml LAV(MOD-sp4): 36.9 ml LA A4 area: 15.8 cm2 RA A4 area: 12.2 cm2 Time Measurements MV dec time: 0.19 sec Doppler Measurements & Calculations MV E max emory: 86.3 cm/sec Lat Peak E' Emory: 8.4 cm/sec Med Peak E' Emory: 7.0 cm/sec MV A max emory: 66.3 cm/sec E/E' lat: 10.3 E/E' med: 12.4 MV E/A: 1.3 MV V2 max: 97.3 cm/sec MV P1/2t max emory: 96.3 cm/sec Ao V2 max: 251.3 cm/sec MV max P.8 mmHg MV P1/2t: 93.4 msec Ao max P.3 mmHg MV V2 mean: 50.7 cm/sec MV dec slope: 302.0 cm/sec2 Ao V2 mean: 162.8 cm/sec MV mean P.2 mmHg Ao mean P.4 mmHg MV V2 VTI: 30.5 cm MVA(P1/2t): 2.4 cm2 Ao V2 VTI: 54.5 cm MVA(VTI): 2.3 cm2 SHARON(I,D): 1.3 cm2 SHARON(V,D): 1.1 cm2 LV V1 max: 92.9 cm/sec SV(LVOT): 70.0 ml PA V2 max: 83.8 cm/sec LV V1 max P.5 mmHg LV V1 mean P.7 mmHg LV V1 mean: 58.9 cm/sec LV V1 VTI: 22.8 cm TR max emory: 290.1 cm/sec TR max P.7 mmHg ECHO/Echo Complete Interpretation Summary The study was technically difficult. Left ventricular systolic function is normal. The estimated ejection fraction is 65 %. The left atrium is mildly enlarged. There is mild to moderate mitral annular calcification. Extension of the mitral annular calcification onto the base of the posterior mi tral valve leaflet. Mild-Moderate (1-2+) mitral valve insufficiency. Mild tricuspid valve insufficiency. Mild to moderate aortic stenosis. Mild (1+) pulmonic valve insufficiency. Right ventricular systolic pressure estimated to be 37 mmHg. Diastolic function is indeterminate. Ordering Physician: Huey Reddy Referring Physician: Zack Veloz Performed By: Robert Haddad RCS
== END ==
PROVIDERS: PCP Family Medicine; Referring Provider Internal Medicine Cardiovascular Disease; Visit Provider Internal Medicine Cardiovascular Disease
DX: I25.10 Atherosclerotic heart disease of native coronary artery without angina pectoris (principal); I06.2 Rheumatic aortic stenosis with insufficiency
CPT/HCPCS: 93306

== ENCOUNTER 2022-01-23 09:49 | Outpatient (CLI) | payer MEDICARE, SELFPAY ==
[2022-01-23 11:21] LABS: Hematocrit 38.7 % (37-47); Hemoglobin 12.9 g/dL (12.0-15.0); Mean Corp Hgb Conc 33.3 g/dL (32-36); Mean Corpuscular Hgb 32.9 pg (27.0-32.0); Mean Corpuscular Volume 98.7 fL (81-99); Mean Platelet Vol. 10.4 fl (6.2-12.0); Platelet Count 322 K/mm3 (150-450); RBC Distribution Width CV 12.9 % (11.6-14.6); RBC Distribution Width SD 46.7 fl (35.1-43.9); Red Blood Count 3.92 M/mm3 (4.2-5.4); White Blood Count 7.9 K/mm3 (4.4-11.0)
[2022-01-23 11:56] LABS: Anion Gap 3 (5-15); BUN 33 mg/dL (7-18); BUN/Creat Ratio 26.4 RATIO (10-20); Chloride 103 mmol/L (98-107); Creatinine, Serum 1.25 mg/dL (0.55-1.02); EST Glomerular Filtration Rate 43 mL/min (>60); Est Glom Filt Rate - Afr Amer 52 mL/min (>60); Glucose 130 mg/dL (74-106); Magnesium 2.2 mg/dL (1.6-2.6); Potassium 3.7 mmol/L (3.5-5.1); Sodium Level 136 mmol/L (136-145); T4 Total, Thyroxin 10.9 ug/dL (4.8-13.9); Thyroid Stim Hormone (TSH) 2.75 uIU/mL (0.358-3.74)
[2022-01-23 12:09] LABS: BNP,B-Type NATRIURETIC PEPTIDE 385.5 pg/mL (0-100)
== END 2022-01-23 23:59 | disposition home or self-care (01) ==
LOC: LAB 09:50
PROVIDERS: PCP Family Medicine; Referring Provider Nurse Practitioner Family; Visit Provider Nurse Practitioner Family
DX: R06.02 Shortness of breath (principal); I06.2 Rheumatic aortic stenosis with insufficiency; I34.0 Nonrheumatic mitral (valve) insufficiency; I25.10 Atherosclerotic heart disease of native coronary artery without angina pectoris; R19.7 Diarrhea, unspecified; R00.0 Tachycardia, unspecified; I10 Essential (primary) hypertension; R53.83 Other fatigue; Z79.899 Other long term (current) drug therapy; Z87.19 Personal history of other diseases of the digestive system
CPT/HCPCS: 36415; 80048; 83735; 83880; 84436; 84443; 85027

== ENCOUNTER → 2022-02-28 | Outpatient (CLI) | payer MEDICARE, SELFPAY ==
[2022-02-28 10:49] LABS: AST(SGOT) 20 U/L (15-37); Alanine Aminotransfer ALT/SGPT 17 U/L (13-56); Albumin, Serum 3.3 g/dL (3.2-5.0); Alkaline Phosphatase 69 U/L (45-117); Bilirubin, Direct 0.23 mg/dL (0.00-0.30); Cholesterol 160 mg/dL (200); Globulin 4.1 g/dL (2.2-4.2); High Density Lipoprotein 43 mg/dL; Protein, Total 7.4 g/dL (6.4-8.2); Triglycerides 139 mg/dL; Very Low Density Lipoprotein 28 mg/dL (5-40)
== END | disposition home or self-care (01) ==
LOC: LAB 09:29
PROVIDERS: PCP Family Medicine; Referring Provider Nurse Practitioner Family; Visit Provider Nurse Practitioner Family
DX: E78.00 Pure hypercholesterolemia, unspecified (principal); E78.5 Hyperlipidemia, unspecified
CPT/HCPCS: 36415; 80061; 80076

== ENCOUNTER → 2022-03-03 | Outpatient (CLI) | payer MEDICARE, SELFPAY ==
[2022-03-03 11:23] LABS: Absolute Lymphocyte Count 1.65 X10^3/uL (0.83-4.51); Absolute Neutrophil Count 4.5 X10^3/uL (2.0-7.7); Basophil# 0.02 X10^3/uL; Basophil% 0.3 % (0-1); Eosinophil# 0.24 X10^3/uL; Eosinophils% 3.5 % (0-5); Hematocrit 39.4 % (37-47); Lymphocyte # 1.65 X10^3/ul (0.83-4.51); Mean Corpuscular Hgb 32.7 pg (27.0-32.0); Mean Platelet Vol. 9.7 fl (6.2-12.0); Monocyte# 0.45 X10^3/uL; Monocyte% 6.5 % (0-10); NRBC Flagged by Analyzer 0 % (0-5); Neutrophil # 4.49 X10^3/uL (2.7-7.7); Neutrophil % 65.3 % (47-70); Platelet Count 341 K/mm3 (150-450); RBC Distribution Width CV 12.7 % (11.6-14.6); RBC Distribution Width SD 46.5 fl (35.1-43.9); Red Blood Count 3.98 M/mm3 (4.2-5.4); White Blood Count 6.9 K/mm3 (4.4-11.0)
[2022-03-03 11:51] LABS: BNP,B-Type NATRIURETIC PEPTIDE 232.9 pg/mL (0-100)
[2022-03-03 11:55] LABS: Anion Gap 4 (5-15); BUN 27 mg/dL (7-18); BUN/Creat Ratio 20.5 RATIO (10-20); Calcium,Total 9.3 mg/dL (8.5-10.1); Chloride 100 mmol/L (98-107); Creatinine, Serum 1.32 mg/dL (0.55-1.02); EST Glomerular Filtration Rate 41 mL/min (>60); Est Glom Filt Rate - Afr Amer 49 mL/min (>60); Glucose 109 mg/dL (74-106); Magnesium 2.3 mg/dL (1.6-2.6); Potassium 4.5 mmol/L (3.5-5.1); Sodium Level 134 mmol/L (136-145)
== END | disposition home or self-care (01) ==
LOC: LAB 11:05
PROVIDERS: PCP Family Medicine; Referring Provider Nurse Practitioner Gerontology; Visit Provider Nurse Practitioner Gerontology
DX: R06.00 Dyspnea, unspecified (principal)
CPT/HCPCS: 36415; 80048; 83735; 83880; 85025

== ENCOUNTER → 2022-03-07 | Outpatient (CLI) | payer MEDICARE, SELFPAY | END | disposition home or self-care (01) | LOC: LABSPEC 10:05 | PROVIDERS: PCP Family Medicine; Visit Provider Family Medicine | DX: R35.0 Frequency of micturition (principal) | CPT/HCPCS: 87086; 87088; 87186 ==

== ENCOUNTER → 2022-03-15 | Outpatient (CLI) | payer MEDICARE, SELFPAY ==
[2022-03-15 11:48] LABS: Anion Gap 5 (5-15); BUN 27 mg/dL (7-18); BUN/Creat Ratio 23.3 RATIO (10-20); Calcium,Total 9.2 mg/dL (8.5-10.1); Chloride 100 mmol/L (98-107); Creatinine, Serum 1.16 mg/dL (0.55-1.02); EST Glomerular Filtration Rate 47 mL/min (>60); Est Glom Filt Rate - Afr Amer 57 mL/min (>60); Glucose 101 mg/dL (74-106); Sodium Level 134 mmol/L (136-145)
== END | disposition home or self-care (01) ==
PROVIDERS: PCP Family Medicine; Visit Provider Nurse Practitioner Gerontology
DX: R06.00 Dyspnea, unspecified (principal)
CPT/HCPCS: 36415; 80048

== ENCOUNTER → 2022-04-11 | Outpatient (CLI) | payer MEDICARE, SELFPAY | END | disposition home or self-care (01) | LOC: MFPLAB 09:20 | PROVIDERS: PCP Family Medicine; Visit Provider Family Medicine | DX: R19.7 Diarrhea, unspecified (principal) | CPT/HCPCS: 87177; 87209; 87493; 87506 ==

== ENCOUNTER 2022-05-19 10:16 | Emergency (ER) | payer MEDICARE, SELFPAY ==
[2022-05-19 10:17] VITALS: BP 136/97; PULSE 84; RESP 18; TEMP 36.1; O2SAT 100; BMI 23.8
--- NOTE | 2022-05-19 11:23 | VDLE_ITS ---
Reason For Study: Swelling Procedure LEFT This is a venous duplex using B-mode, color CFV is compressible, spontaneous, phasic, flow and spectral Doppler. competent, and demonstrates normal Exam performed portable in ED. augmentation. A preliminary report was called and/or faxed FV is compressible, spontaneous, phasic, to ED RN. competent and demonstrates normal augmentation. POP V is compressible, spontaneous, phasic, competent and demonstrates normal augmentation. T/P Trunk is compressible. PTV is compressible. LT PerV is compressible. GSV was previously harvested. VL/Venous Duplex US, Unilateral Interpretation Summary There is no evidence of left lower extremity deep vein thrombosis. Harvested le ft great saphenous vein Ordering Physician: Iliana Dias Referring Physician: Zack Veloz MD Performed By: Vera Booker RVT
--- NOTE | 2022-05-19 11:23 | CT_ITS ---
STUDY: CT BRAIN WITHOUT CONTRAST REASON FOR EXAM: Female, 87 years old. head injury, syncope RADIATION DOSAGE (If Supplied By Facility): CTDIvol = ( 44.99 ) mGy, DLP = ( 779.24 ) mGycm TECHNIQUE: Transaxial CT imaging of the brain was performed without administration of intravenous contrast material. Individualized dose optimization techniques were used for this CT. COMPARISON: None. FINDINGS: Normal soft tissue structures. Normal calvarium. No visualized skull fracture or hemorrhagic contusions of the brain parenchyma. An oblique displaced/drop fracture through the mid aspect of the right orbital floor is present with herniation of intraorbital fat through the fracture defect. Small amount of lobular soft tissue material beneath the fracture site appears to be an old hematoma. There is mild cerebral atrophy with widening of the extra-axial spaces and ventricular dilatation. There are moderate areas of decreased attenuation within the white matter tracts of the supratentorial brain, consistent with microvascular disease changes. Normal basal ganglia and thalami. Normal brainstem. Normal cerebellum. Prominent perivascular space of the left inferior basal ganglia region. There is no intracranial hemorrhage. There are no findings of an acute ischemic infarction. Normal visualized paranasal sinuses. CT/Brain/Head without Contrast IMPRESSION: 1. Chronic ischemic and involutional changes of the brain. 2. No visualized skull fracture or hemorrhagic contusions of the brain parenchyma. 3. An oblique displaced/drop fracture through the mid aspect of the right orbital floor is present with herniation of intraorbital fat through the fracture defect. Small amount of lobular soft tissue material beneath the fracture site appears to be an old hematoma. Electronically Signed: Kaiser Ho MD at 12:21 EDT ,
[2022-05-19 12:02] LABS: ALB/GLOB Ratio 0.7 RATIO (0.9-2.4); AST(SGOT) 20 U/L (15-37); Alanine Aminotransfer ALT/SGPT 19 U/L (13-56); Albumin, Serum 3.1 g/dL (3.2-5.0); Alkaline Phosphatase 74 U/L (45-117); Anion Gap 11 (5-15); BUN 26 mg/dL (7-18); BUN/Creat Ratio 21.1 RATIO (10-20); Calcium,Total 9.2 mg/dL (8.5-10.1); Chloride 88 mmol/L (98-107); Creatinine, Serum 1.23 mg/dL (0.55-1.02); EST Glomerular Filtration Rate 44 mL/min (>60); Est Glom Filt Rate - Afr Amer 53 mL/min (>60); Estimated Creatinine Clearance 26.45 ml/min; Globulin 4.5 g/dL (2.2-4.2); Glucose 137 mg/dL (74-106); Protein, Total 7.6 g/dL (6.4-8.2); Sodium Level 125 mmol/L (136-145); Troponin-I HS 32 pg/mL (3.0-54.0)
--- NOTE | 2022-05-19 12:10 | RAD_ITS ---
STUDY: X-RAY CHEST REASON FOR EXAM: Female, 87 years old. syncope TECHNIQUE: Single AP portable view of the chest. COMPARISON: None. FINDINGS: The lungs are clear and expanded. There is no demonstrated pleural abnormality. Sternal cerclage wires are present from a prior sternotomy. Normal heart size. Normal mediastinum and jenifer. Normal visualized pulmonary arteries. Normal visualized aortic arch and descending thoracic aorta. There is demineralization of the osseous structures. Normal visualized ribs, clavicles, and shoulders. There is no demonstrated abnormality of the visualized soft tissue structures of the upper abdomen. RAD/Chest 1 View (Portable) IMPRESSION: No acute process Electronically Signed: Kaiser Ho MD at 12:36 EDT ,
--- NOTE | 2022-05-19 12:11 | EX.ED.DYSGE1 ---
HPI History of Present Illness Chief Complaint: General Illness Informant: patient and family Narrative Narrative: Patient is an 87-year-old female presenting with generalized weakness. Patient was diagnosed with COVID about 2 weeks ago and completed a course of Paxlovid 7 days ago. She was diagnosed with a UTI because of symptoms based on telemetry health appointment. No urine samples given. She took antibiotics for couple days but stopped taking it because she was feeling so fatigued and thought it be a side effect of the antibiotics. Patient states that she was walking to the kitchen when she had a syncopal episode 2 days ago. She fell and hit her head on the hardwood floor in her house. Has not had any syncope since but has been feeling lightheaded with walking. Is had some mild nausea today. Has some chronic left leg swelling which is unchanged. Currently denies any urinary symptoms, fever, vomiting or change in bowel habits. Denies any abdominal pain. Is not on any anticoagulation. Came in today for further evaluation. 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 Rectal bleeding Rectal bleeding Home Medications aspirin 81 mg tablet,delayed release (Adult Low Dose Aspirin) 81 mg PO DAILY 03/04/18 [History Last Taken 05/19/22] nitroglycerin 0.4 mg sublingual tablet (Nitrostat) 0.4 mg sublingual Q5M PRN Cardiac Arrythmia 03/04/18 [History Last Taken Unknown] metoprolol tartrate 25 mg tablet 25 mg PO BID bp,heart #180 tabs 07/27/21 [Rx Last Taken 05/19/22] calcium carbonate 600 mg-vitamin D3 12.5 mcg (500 unit) capsule (Calcium 600 with Vitamin D3) 1 cap PO DAILY 09/02/21 [History Last Taken Unknown] hydrochlorothiazide 12.5 mg tablet 12.5 mg PO BID edema #180 tabs 01/25/22 [Rx Last Taken 05/19/22] amlodipine 2.5 mg tablet 2.5 mg PO DAILY #90 tabs 02/27/22 [Rx Last Taken 05/19/22] rosuvastatin 40 mg tablet 40 mg PO QHS 03/03/22 [History Last Taken 05/18/22] folic acid 400 mcg tablet 0.8 mg PO DAILY 05/19/22 [History Last Taken 05/19/22] magnesium oxide 400 mg PO DAILY supplement 05/19/22 [History Last Taken Unknown] nitrofurantoin macrocrystal 50 mg capsule 50 mg PO BID 05/19/22 [History Last Taken 05/18/22] potassium chloride 20 mEq tablet,extended release 20 meq PO DAILY #5 tabs 05/19/22 [Rx Last Taken Unknown] ramipril 10 mg capsule 10 mg PO BID heart 05/19/22 [History Last Taken 05/19/22] Allergy/AdvReac Type Severity Reaction Status Date / Time No Known Allergies Allergy Verified 03/03/22 10:32 Family History Father No problems noted. Mother CAD (coronary artery disease) Asthma Brother CAD (coronary artery disease) Cancer Surgical History H/O: hemorrhoidectomy History of coronary artery bypass surgery (~07/26/07) Social History Smoking Status: Never smoker alcohol intake: current alcohol intake frequency: holidays/special occasions only substance use type: does not use caffeine: No what type of physical activity do you participate in: walking frequency: daily duration: 45-60 minutes/day ROS ROS ED Constitutional Constitutional ED: Reports other Details: syncope ; Denies chills or fever(s) Eyes Eyes: Reports other Details: right bruising periorbital and pain ; Denies change in vision or diplopia ENT ENT ED: Denies rhinorrhea or sore throat Cardiovascular Cardiovascular: Denies chest pain or palpitations Respiratory/Chest Respiratory/Chest: Reports cough; Denies dyspnea or dyspnea on exertion Gastrointestinal Gastrointestinal: Denies abdominal pain, nausea or vomiting Musculoskeletal Musculoskeletal: Denies arthralgias or myalgias Integumentary Denies Abrasions or rash Neurologic Neurologic: Reports headache(s) and weakness; Denies paresthesias Psychiatric Psychiatric: Denies anxiety Hematologic/Lymphatic Hematologic/Lymphatic: Denies easy bleeding or easy bruising EXAM Physical Exam Const Vital Signs: 05/19/22 10:17 05/19/22 10:25 05/19/22 12:16 Temperature 97 F L Temperature Source Temporal Pulse Rate 84 62 Pulse Rate [Lying] Pulse Rate [Sitting (for 1 minute prior to obtaining)] Pulse Rate [Standing (for 1 minute prior to obtaining)] Respiratory Rate 18 16 Respiratory Effort Normal Non-Labored Respiratory Pattern Normal Blood Pressure 136/97 H 131/63 H Blood Pressure [Lying] Blood Pressure [Sitting (for 1 minute prior to obtaining)] Blood Pressure [Standing (for 1 minute prior to obtaining)] Blood Pressure Mean 110 85 Blood Pressure Mean [Lying] Blood Pressure Mean [Sitting (for 1 minute prior to obtaining)] Blood Pressure Mean [Standing (for 1 minute prior to obtaining)] Pulse Ox 100 97 Oxygen Delivery Method Room Air Room Air 05/19/22 13:31 05/19/22 15:18 Temperature Temperature Source Pulse Rate 70 Pulse Rate [Lying] 62 Pulse Rate [Sitting (for 1 minute prior to obtaining)] 68 Pulse Rate [Standing (for 1 minute prior to obtaining)] 79 Respiratory Rate 19 H Respiratory Effort Respiratory Pattern Blood Pressure 103/48 L Blood Pressure [Lying] 137/54 H Blood Pressure [Sitting (for 1 minute prior to obtaining)] 149/65 H Blood Pressure [Standing (for 1 minute prior to obtaining)] 131/63 H Blood Pressure Mean 66 Blood Pressure Mean [Lying] 81 Blood Pressure Mean [Sitting (for 1 minute prior to obtaining)] 93 Blood Pressure Mean [Standing (for 1 minute prior to obtaining)] 85 Pulse Ox 97 Oxygen Delivery Method Room Air Positive well nourished and well developed General Appearance ED: well developed and NAD; Negative for pallor HEENT Reports TM's clear and dry mucous membranes HEENT Narrative: Bruising in the right periorbital area most pronounced underneath the eye. Associated tenderness to palpation trauma and tenderness Tympanic Membrane ED: Yes TM's clear Mouth ED: Yes dry mucous membranes Mouth: dry mucous membranes Eyes PERRL and EOMs intact bilaterally Eyes Narrative: Normal conjunctiva Neck supple and no JVD Chest Wall inspection of chest normal and palpation of chest normal Resp normal respiratory effort Resp Narrative: Bibasilar crackles present Auscultation: Negative for rales or rhonchi Cardio regular rate, regular rhythm and no murmurs GI normal to inspection, nondistended, normoactive bowel sounds and non-tender Back/Spine no CVA tenderness Extremity normal to inspection Extremity Narrative: Asymmetric nonpitting edema of the left lower extremity compared to the right. Patient states this is chronic and secondary to vein harvesting remotely General Extremety ED: Negative for tenderness Neuro oriented x3, CN's II-XII intact bilaterally and no sensory deficits noted Motor Exam: strength 5/5 throughout Skin no rashes or lesions noted and no wounds Skin Narrative: Ecchymosis below the right eye, see above General Skin Exam: Negative for pallor MDM MDM MDM Narrative Medical decision making narrative: Patient's evaluate for generalized weakness. Patient had COVID about 2 weeks ago. She completed a course of antiviral therapy. She is continue to feel weak. She had a syncopal episode 2 days ago. Patient did strike her head with this. Is complained of pain below her right eye since then. CT of the brain obtained to rule out intracranial process. She is found to have an orbital floor fracture with herniation of fat but no eye muscle entrapment. On exam patient has painless range of motion of the eye. Pupils are equally reactive. She has no focal neurologic deficits. CBC is normal. BMP does show hyponatremia with a sodium of 125 as well as mild hypokalemia with a potassium of 3.0. She has a mildly elevated creatinine 1.23 but this is her baseline. Her high since he troponin is 32 the patient denies any chest pain. EKG does not show any acute ischemic changes. D-dimer is elevated. Venous duplex is negative for DVT and CTA negative for PE. There is some pulmonary edema/inflammatory changes which I think is secondary to her recent COVID-19 infection. Clinically patient does not appear fluid overloaded. Case discussed with hospitalist, Dr. Malave, who felt that after receiving fluid bolus in the ER the only thing he would do is hold her hydrochlorothiazide over the weekend I did not think she required admission for this. Discussed this with the patient and her family and patient felt comfortable going home. Patient instructed to hold her hydrochlorothiazide. She is given a liter of fluid in the emergency room. She is given a prescription for potassium replacement. She is counseled that she needs to follow-up with her primary care doctor next week for repeat BMP. She is given referral for ophthalmology for outpatient follow-up for her orbital floor fracture. Patient counseled on strict return precautions as well as needing to rest. She and her daughter verbalized agreement understand this plan. Patient will take Tylenol and Advil as needed for her pain from her fall. Lab Data Attestation: I reviewed the patient's lab results. Labs: Laboratory Results - last 24 hr 05/19/22 05/19/22 05/19/22 11:00 11:00 13:00 WBC 8.7 RBC 4.14 L Hgb 13.1 Hct 37.4 MCV 90.3 MCH 31.6 MCHC 35.0 RDW Std Deviation 41.3 RDW Coeff of John 12.5 Plt Count 355 MPV 10.4 Immature Gran % (Auto) 0.600 Neut % (Auto) 81.3 H Lymph % (Auto) 9.3 L Bradford % (Auto) 5.3 Eos % (Auto) 3.4 Baso % (Auto) 0.1 Absolute Neuts (auto) 7.1 Absolute Lymphs (auto) 0.81 L Nucleated RBC % 0 D-Dimer Quant (PE/DVT) Sodium 125 L Potassium 3.0 L Chloride 88 L Carbon Dioxide 26.0 Anion Gap 11 BUN 26 H Creatinine 1.23 H Estim Creat Clear Calc 26.45 Est GFR (MDRD) Af Amer 53 L Est GFR (MDRD) Non-Af 44 L BUN/Creatinine Ratio 21.1 H Glucose 137 H Calcium 9.2 Total Bilirubin 1.00 AST 20 ALT 19 Alkaline Phosphatase 74 Troponin I High Sens 32 Total Protein 7.6 Albumin 3.1 L Globulin 4.5 H Albumin/Globulin Ratio 0.7 L Urine Color Yellow Urine Clarity Clear Urine pH 7.0 Ur Specific [place] 1.010 Urine Protein 30 H Urine Glucose (UA) Normal Urine Ketones 15 H Urine Occult Blood 10 H Urine Nitrite Negative Urine Bilirubin Negative Urine Urobilinogen Normal Ur Leukocyte Esterase 25 H Urine RBC 0-5 SEEN Urine WBC 0-5 SEEN Ur Squamous Epith Cells 0-5 SEEN Urine Bacteria 0 SEEN Urine Mucus 0 SEEN 05/19/22 13:44 WBC RBC Hgb Hct MCV MCH MCHC RDW Std Deviation RDW Coeff of John Plt Count MPV Immature Gran % (Auto) Neut % (Auto) Lymph % (Auto) Bradford % (Auto) Eos % (Auto) Baso % (Auto) Absolute Neuts (auto) Absolute Lymphs (auto) Nucleated RBC % D-Dimer Quant (PE/DVT) 2.45 H* Sodium Potassium Chloride Carbon Dioxide Anion Gap BUN Creatinine Estim Creat Clear Calc Est GFR (MDRD) Af Amer Est GFR (MDRD) Non-Af BUN/Creatinine Ratio Glucose Calcium Total Bilirubin AST ALT Alkaline Phosphatase Troponin I High Sens Total Protein Albumin Globulin Albumin/Globulin Ratio Urine Color Urine Clarity Urine pH Ur Specific [place] Urine Protein Urine Glucose (UA) Urine Ketones Urine Occult Blood Urine Nitrite Urine Bilirubin Urine Urobilinogen Ur Leukocyte Esterase Urine RBC Urine WBC Ur Squamous Epith Cells Urine Bacteria Urine Mucus Radiography Chest X-Ray - ED: 1 View, Read by ED Physician, Read by Radiologist and No Acute Disease Diagnostic Testing: Clinical Impression(s) from Imaging Studies Brain CT 05/19/22 11:23 IMPRESSION: 1. Chronic ischemic and involutional changes of the brain. 2. No visualized skull fracture or hemorrhagic contusions of the brain parenchyma. 3. An oblique displaced/drop fracture through the mid aspect of the right orbital floor is present with herniation of intraorbital fat through the fracture defect. Small amount of lobular soft tissue material beneath the fracture site appears to be an old hematoma. Electronically Signed: Kaiser Ho MD at 12:21 EDT , Venous Doppler Study 05/19/22 11:23 Interpretation Summary There is no evidence of left lower extremity deep vein thrombosis. Harvested left great saphenous vein Ordering Physician: Iliana Dias Referring Physician: Zack Veloz MD Performed By: Vera Booker RVT Chest X-Ray 05/19/22 12:10 IMPRESSION: No acute process Electronically Signed: Kaiser Ho MD at 12:36 EDT , Chest CTA 05/19/22 14:14 IMPRESSION: 1. No evidence of acute pulmonary embolism. 2. Pulmonary edema/inflammatory change. 3. Mild cardiomegaly. Electronically Signed: Stefano Avery MD at 15:30 EDT , Rhythm Strip Rhythm Strip: Sinus Rhythm Rate: 69 Ectopy: PVC(s) EKG Initial EKG: Attestation: I personally reviewed and interpreted this EKG as follows: Interpretation: Sinus Rhythm Comments: Normal sinus rhythm and rate of 69 Normal axis Normal intervals Nonspecific ST segment changes Compared to prior EKG patient does not have significant changes, she is no longer bradycardic Prior EKG tracings: available for review Prior: Unchanged Discharge Plan Triage Chief Complaint: General Illness ED Provider: Iliana Dias Dx/Rx/DC Orders Clinical Impression: Acute hyponatremia, Syncope and collapse, Closed fracture of right orbital floor, Inflammation of lung Instructions: Hyponatremia Dc, ED Facial Fracture, ED Fainting, Uncertain Cause Prescriptions: New potassium chloride 20 mEq tablet extended release 20 meq PO DAILY Qty: 5 0RF No Action aspirin [Adult Low Dose Aspirin] 81 mg tablet,delayed release (DR/EC) 81 mg PO DAILY Label Comments: stop preop 5 days as directed nitroglycerin [Nitrostat] 0.4 mg tablet, sublingual 0.4 mg SUBLINGUAL Q5M PRN (Reason: Cardiac Arrythmia) Label Comments: X 3 calcium carbonate-vitamin D3 [Calcium 600 with Vitamin D3] 600 mg(1,500mg) -500 unit capsule 1 cap PO DAILY rosuvastatin 40 mg tablet 40 mg PO QHS nitrofurantoin macrocrystal 50 mg capsule 50 mg PO BID magnesium oxide 400 mg magnesium Tablet 400 mg PO DAILY folic acid 400 mcg tablet 0.8 mg PO DAILY ramipril 10 mg capsule 10 mg PO BID Rx Instructions: Take 1 capsule by mouth twice daily metoprolol tartrate 25 mg tablet 25 mg PO BID Qty: 180 3RF hydrochlorothiazide 12.5 mg tablet 12.5 mg PO BID Qty: 180 3RF amlodipine 2.5 mg tablet 2.5 mg PO DAILY Qty: 90 3RF Primary Care Provider: Zack Veloz Referrals: Zack Veloz MD [Primary Care Provider] - Jsaon Swift MD [Med Staff - Active Staff] - Activity Restrictions/Additional Instructions: Stop taking your hydrochlorothiazide as your sodium is low. Follow-up with your primary care doctor, Dr. Veloz for repeat sodium check next week. Call the foreign car mechanic (you have been given information for Dr. Swift) for follow-up for your eyes as you do have an orbital floor fracture. If you have another episode of syncope please return to the emergency room. Make sure you are resting. Disposition Disposition: Home, Self Care
[2022-05-19 12:16] VITALS: BP 131/63; PULSE 62; RESP 16; O2SAT 97
[2022-05-19 12:41] LABS: Absolute Lymphocyte Count 0.81 X10^3/uL (0.83-4.51); Absolute Neutrophil Count 7.1 X10^3/uL (2.0-7.7); Basophil# 0.01 X10^3/uL; Basophil% 0.1 % (0-1); Eosinophils% 3.4 % (0-5); Hematocrit 37.4 % (37-47); Hemoglobin 13.1 g/dL (12.0-15.0); Lymphocyte # 0.81 X10^3/ul (0.83-4.51); Lymphocyte % 9.3 % (19-41); Mean Corpuscular Hgb 31.6 pg (27.0-32.0); Mean Corpuscular Volume 90.3 fL (81-99); Mean Platelet Vol. 10.4 fl (6.2-12.0); Monocyte# 0.46 X10^3/uL; Monocyte% 5.3 % (0-10); NRBC Flagged by Analyzer 0 % (0-5); Neutrophil # 7.07 X10^3/uL (2.7-7.7); Neutrophil % 81.3 % (47-70); Platelet Count 355 K/mm3 (150-450); RBC Distribution Width CV 12.5 % (11.6-14.6); RBC Distribution Width SD 41.3 fl (35.1-43.9); Red Blood Count 4.14 M/mm3 (4.2-5.4); White Blood Count 8.7 K/mm3 (4.4-11.0)
[2022-05-19 13:07] LABS: Bacteria 0 SEEN /hpf (None Seen); Mucous, Urine 0 SEEN /hpf (<or=2+)
[2022-05-19 13:09] LABS: Color, Urine Yellow (Yellow); Glucose, Dipstick Normal (Normal); Ketone-Dipstick 15 mg/dl (Negative); Leukocyte Esterase-Dipstick 25 /ul (Negative); Nitrite-Dipstick Negative (Negative); Occult Blood-Urine 10 /ul (Negative); Protein-Dipstick 30 mg/dl (Negative); Urine Bilirubin Dipstick Negative (Negative); Urine Clarity Clear (Clear); Urine Urobilinogen Normal (Normal)
[2022-05-19 13:16] LABS: Red Blood Cells-Urine 0-5 SEEN /hpf (0-5); Squamous Epithelial Cells - UA 0-5 SEEN /hpf (5-10); White Blood Cells 0-5 SEEN /hpf (0-5)
[2022-05-19 13:31] VITALS: BP 131/63; BP 137/54; BP 149/65; PULSE 62; PULSE 68; PULSE 79
[2022-05-19 14:11] LABS: D-Dimer Quantitative (DVT/PE) 2.45 FEU/ug/m (0.27-0.49)
--- NOTE | 2022-05-19 14:14 | CT_ITS ---
EXAM: CT ANGIOGRAPHY CHEST WITHOUT AND WITH INTRAVENOUS CONTRAST CLINICAL INDICATION: suspect PE, elevated dimer TECHNIQUE: Helically acquired angiography images were obtained of the chest without and with intravenous contrast. This CT exam was performed using one or more of the following dose reduction techniques: automated exposure control, adjustment of the mA and/or kV according to patient size, and/or use of iterative reconstruction technique. This report was created using [employer] report generation technology. MIP reconstructed images were created and reviewed. CONTRAST: IV 100mL [id number] COMPARISON: None. FINDINGS: PULMONARY ARTERIES: Normal. Normal in caliber. No evidence of pulmonary embolism. AORTA: Normal. Normal in caliber. No evidence of dissection. GREAT VESSELS OF AORTIC ARCH: Normal. Normal in caliber. No evidence of dissection. LUNGS AND PLEURAL SPACES: Mild diffuse thickening of the pulmonary interstitium which may represent edema or fibrosis. Mild bibasilar atelectasis. No mass. No pleural effusion or thickening. No pneumothorax. HEART: Heart is mildly enlarged. No pericardial effusion. No signs of right heart strain, ratio of right ventricle to left ventricle measures less than 1. MEDIASTINUM: Normal. No mediastinal or hilar adenopathy. Esophagus is unremarkable. No hiatal hernia. THYROID: Normal. No thyroid lesions. BONES/JOINTS: Sternotomy wires are in place. No suspicious lytic or blastic abnormality. LYMPH NODES: Calcified right hilar nodes. CT/CTA Chest W/WO Contrast IMPRESSION: 1. No evidence of acute pulmonary embolism. 2. Pulmonary edema/inflammatory change. 3. Mild cardiomegaly. Electronically Signed: Stefano Avery MD at 15:30 EDT ,
[2022-05-19 15:18] VITALS: BP 103/48; PULSE 70; RESP 19; O2SAT 97
--- NOTE | 2022-05-19 15:50 | EKG12_ITS ---
Test Reason : PVC'S Blood Pressure : / mmHG Vent. Rate : 069 BPM Atrial Rate : 069 BPM P-R Int : 158 ms QRS Dur : 094 ms QT Int : 432 ms P-R-T Axes : 085 043 005 degrees QTc Int : 462 ms Normal sinus rhythm Nonspecific ST and T wave abnormality Abnormal ECG Confirmed by MARCE BEGUM, CARLA ([id number]), editor department SANDIP HAWKINS ([id number]) on 05/22/2022 1:01:18 PM Referred By: FOZIA Confirmed By:CARLA ZHENG MD
[2022-05-19 16:38] VITALS: BP 131/72; PULSE 83; RESP 16; O2SAT 97
--- NOTE | 2022-05-19 16:46 | EX.ED.DYSGE1 ---
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 Bilateral lower extremity edema Encounter for long-term current use of high risk medication Essential (primary) hypertension Family hx of colon cancer Hemorrhoids Herpes simplex labialis HLD (hyperlipidemia) Internal prolapsed hemorrhoids 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 Nonrheumatic mitral valve insufficiency Rectal bleeding Rectal bleeding Home Medications aspirin 81 mg tablet,delayed release (Adult Low Dose Aspirin) 81 mg PO DAILY 03/04/18 [History Last Taken 05/19/22] nitroglycerin 0.4 mg sublingual tablet (Nitrostat) 0.4 mg sublingual Q5M PRN Cardiac Arrythmia 03/04/18 [History Last Taken Unknown] metoprolol tartrate 25 mg tablet 25 mg PO BID bp,heart #180 tabs 07/27/21 [Rx Last Taken 05/19/22] calcium carbonate 600 mg-vitamin D3 12.5 mcg (500 unit) capsule (Calcium 600 with Vitamin D3) 1 cap PO DAILY 09/02/21 [History Last Taken Unknown] hydrochlorothiazide 12.5 mg tablet 12.5 mg PO BID edema #180 tabs 01/25/22 [Rx Last Taken 05/19/22] amlodipine 2.5 mg tablet 2.5 mg PO DAILY #90 tabs 02/27/22 [Rx Last Taken 05/19/22] rosuvastatin 40 mg tablet 40 mg PO QHS 03/03/22 [History Last Taken 05/18/22] folic acid 400 mcg tablet 0.8 mg PO DAILY 05/19/22 [History Last Taken 05/19/22] magnesium oxide 400 mg PO DAILY supplement 05/19/22 [History Last Taken Unknown] nitrofurantoin macrocrystal 50 mg capsule 50 mg PO BID 05/19/22 [History Last Taken 05/18/22] potassium chloride 20 mEq tablet,extended release 20 meq PO DAILY #5 tabs 05/19/22 [Rx Last Taken Unknown] ramipril 10 mg capsule 10 mg PO BID heart 05/19/22 [History Last Taken 05/19/22] Allergy/AdvReac Type Severity Reaction Status Date / Time No Known Allergies Allergy Verified 03/03/22 10:32 Family History Father No problems noted. Mother CAD (coronary artery disease) Asthma Brother CAD (coronary artery disease) Cancer Surgical History H/O: hemorrhoidectomy History of coronary artery bypass surgery (~07/26/07) Social History Smoking Status: Never smoker alcohol intake: current alcohol intake frequency: holidays/special occasions only substance use type: does not use caffeine: No what type of physical activity do you participate in: walking frequency: daily duration: 45-60 minutes/day EXAM Physical Exam Const Vital Signs: 05/19/22 10:17 05/19/22 10:25 05/19/22 12:16 Temperature 97 F L Temperature Source Temporal Pulse Rate 84 62 Pulse Rate [Lying] Pulse Rate [Sitting (for 1 minute prior to obtaining)] Pulse Rate [Standing (for 1 minute prior to obtaining)] Respiratory Rate 18 16 Respiratory Effort Normal Non-Labored Respiratory Pattern Normal Blood Pressure 136/97 H 131/63 H Blood Pressure [Lying] Blood Pressure [Sitting (for 1 minute prior to obtaining)] Blood Pressure [Standing (for 1 minute prior to obtaining)] Blood Pressure Mean 110 85 Blood Pressure Mean [Lying] Blood Pressure Mean [Sitting (for 1 minute prior to obtaining)] Blood Pressure Mean [Standing (for 1 minute prior to obtaining)] Pulse Ox 100 97 Oxygen Delivery Method Room Air Room Air 05/19/22 13:31 05/19/22 15:18 05/19/22 16:38 Temperature Temperature Source Pulse Rate 70 83 Pulse Rate [Lying] 62 Pulse Rate [Sitting (for 1 minute prior to obtaining)] 68 Pulse Rate [Standing (for 1 minute prior to obtaining)] 79 Respiratory Rate 19 H 16 Respiratory Effort Respiratory Pattern Blood Pressure 103/48 L 131/72 H Blood Pressure [Lying] 137/54 H Blood Pressure [Sitting (for 1 minute prior to obtaining)] 149/65 H Blood Pressure [Standing (for 1 minute prior to obtaining)] 131/63 H Blood Pressure Mean 66 Blood Pressure Mean [Lying] 81 Blood Pressure Mean [Sitting (for 1 minute prior to obtaining)] 93 Blood Pressure Mean [Standing (for 1 minute prior to obtaining)] 85 Pulse Ox 97 97 Oxygen Delivery Method Room Air MDM MDM MDM Narrative Medical decision making narrative: Patient is evaluated for generalized weakness. She has syncopal episode 2 days ago. She recently had COVID and completed a course of antiviral medication. Patient appears nontoxic in no acute distress. She has normal vital signs in the emergency room. She has no focal neurologic deficits. She does have bruising around her right eye consistent with her trauma from 2 days ago. No signs of entrapment of the eye muscle. CT of the brain does not show any acute intracranial process however it does show an orbital floor fracture. Patient be given ophthalmology for outpatient follow-up visual think this requires any emergent surgical intervention/oral maxillofacial intervention as she does not have any difficulty with movement of her eyes. She is found to have hyponatremia with a sodium of 125. Creatinine is at her baseline at 1.23. She is mildly hypokalemic with a potassium of 3.0. Patient is given a liter of IV fluids in the ER. She is orthostatic negative. Case discussed for admission with Dr. Malave. He states that besides a fluid bolus all he would do is hold her hydrochlorothiazide does not think she needs admitted for that. Discussed this with the patient and she is amenable to going home and holding her hydrochlorothiazide. She is counseled on return precautions including further episodes of syncope, worsening of her symptoms or inability to care for herself. Case discussed with her primary care doctor, Dr. Veloz, who will order repeat blood work for her for next week and follow-up in the office. Patient has no other signs of infection. She does have some inflammatory changes of her lungs however I suspect that is from her recent COVID infection. Clinically she does not appear fluid overloaded. Lab Data Attestation: I reviewed the patient's lab results. Labs: Laboratory Results - last 24 hr 05/19/22 05/19/22 05/19/22 11:00 11:00 13:00 WBC 8.7 RBC 4.14 L Hgb 13.1 Hct 37.4 MCV 90.3 MCH 31.6 MCHC 35.0 RDW Std Deviation 41.3 RDW Coeff of John 12.5 Plt Count 355 MPV 10.4 Immature Gran % (Auto) 0.600 Neut % (Auto) 81.3 H Lymph % (Auto) 9.3 L [place] % (Auto) 5.3 Eos % (Auto) 3.4 Baso % (Auto) 0.1 Absolute Neuts (auto) 7.1 Absolute Lymphs (auto) 0.81 L Nucleated RBC % 0 D-Dimer Quant (PE/DVT) Sodium 125 L Potassium 3.0 L Chloride 88 L Carbon Dioxide 26.0 Anion Gap 11 BUN 26 H Creatinine 1.23 H Estim Creat Clear Calc 26.45 Est GFR (MDRD) Af Amer 53 L Est GFR (MDRD) Non-Af 44 L BUN/Creatinine Ratio 21.1 H Glucose 137 H Calcium 9.2 Total Bilirubin 1.00 AST 20 ALT 19 Alkaline Phosphatase 74 Troponin I High Sens 32 Total Protein 7.6 Albumin 3.1 L Globulin 4.5 H Albumin/Globulin Ratio 0.7 L Urine Color Yellow Urine Clarity Clear Urine pH 7.0 Ur Specific [place] 1.010 Urine Protein 30 H Urine Glucose (UA) Normal Urine Ketones 15 H Urine Occult Blood 10 H Urine Nitrite Negative Urine Bilirubin Negative Urine Urobilinogen Normal Ur Leukocyte Esterase 25 H Urine RBC 0-5 SEEN Urine WBC 0-5 SEEN Ur Squamous Epith Cells 0-5 SEEN Urine Bacteria 0 SEEN Urine Mucus 0 SEEN 05/19/22 13:44 WBC RBC Hgb Hct MCV MCH MCHC RDW Std Deviation RDW Coeff of John Plt Count MPV Immature Gran % (Auto) Neut % (Auto) Lymph % (Auto) [place] % (Auto) Eos % (Auto) Baso % (Auto) Absolute Neuts (auto) Absolute Lymphs (auto) Nucleated RBC % D-Dimer Quant (PE/DVT) 2.45 H* Sodium Potassium Chloride Carbon Dioxide Anion Gap BUN Creatinine Estim Creat Clear Calc Est GFR (MDRD) Af Amer Est GFR (MDRD) Non-Af BUN/Creatinine Ratio Glucose Calcium Total Bilirubin AST ALT Alkaline Phosphatase Troponin I High Sens Total Protein Albumin Globulin Albumin/Globulin Ratio Urine Color Urine Clarity Urine pH Ur Specific [place] Urine Protein Urine Glucose (UA) Urine Ketones Urine Occult Blood Urine Nitrite Urine Bilirubin Urine Urobilinogen Ur Leukocyte Esterase Urine RBC Urine WBC Ur Squamous Epith Cells Urine Bacteria Urine Mucus Radiography Chest X-Ray - ED: 1 View, Read by ED Physician, Read by Radiologist and No Acute Disease Diagnostic Testing: Clinical Impression(s) from Imaging Studies Brain CT 05/19/22 11:23 IMPRESSION: 1. Chronic ischemic and involutional changes of the brain. 2. No visualized skull fracture or hemorrhagic contusions of the brain parenchyma. 3. An oblique displaced/drop fracture through the mid aspect of the right orbital floor is present with herniation of intraorbital fat through the fracture defect. Small amount of lobular soft tissue material beneath the fracture site appears to be an old hematoma. Electronically Signed: Kaiser Ho MD at 12:21 EDT , Venous Doppler Study 05/19/22 11:23 Interpretation Summary There is no evidence of left lower extremity deep vein thrombosis. Harvested left great saphenous vein Ordering Physician: Iliana Dias Referring Physician: Zack Veloz MD Performed By: Vera Booker T Chest X-Ray 05/19/22 12:10 IMPRESSION: No acute process Electronically Signed: Kaiser Ho MD at 12:36 EDT , Chest CTA 05/19/22 14:14 IMPRESSION: 1. No evidence of acute pulmonary embolism. 2. Pulmonary edema/inflammatory change. 3. Mild cardiomegaly. Electronically Signed: Stefano Avery MD at 15:30 EDT , Rhythm Strip Rhythm Strip: Sinus Rhythm Rate: 69 Ectopy: PVC(s) Discharge Plan Triage Chief Complaint: General Illness ED Provider: Iliana Dias Dx/Rx/DC Orders Clinical Impression: Acute hyponatremia, Syncope and collapse, Closed fracture of right orbital floor, Inflammation of lung Instructions: Hyponatremia Dc, ED Facial Fracture, ED Fainting, Uncertain Cause Prescriptions: New potassium chloride 20 mEq tablet extended release 20 meq PO DAILY Qty: 5 0RF No Action aspirin [Adult Low Dose Aspirin] 81 mg tablet,delayed release (DR/EC) 81 mg PO DAILY Label Comments: stop preop 5 days as directed nitroglycerin [Nitrostat] 0.4 mg tablet, sublingual 0.4 mg SUBLINGUAL Q5M PRN (Reason: Cardiac Arrythmia) Label Comments: X 3 calcium carbonate-vitamin D3 [Calcium 600 with Vitamin D3] 600 mg(1,500mg) -500 unit capsule 1 cap PO DAILY rosuvastatin 40 mg tablet 40 mg PO QHS nitrofurantoin macrocrystal 50 mg capsule 50 mg PO BID magnesium oxide 400 mg magnesium Tablet 400 mg PO DAILY folic acid 400 mcg tablet 0.8 mg PO DAILY ramipril 10 mg capsule 10 mg PO BID Rx Instructions: Take 1 capsule by mouth twice daily metoprolol tartrate 25 mg tablet 25 mg PO BID Qty: 180 3RF hydrochlorothiazide 12.5 mg tablet 12.5 mg PO BID Qty: 180 3RF amlodipine 2.5 mg tablet 2.5 mg PO DAILY Qty: 90 3RF Primary Care Provider: Zack Veloz Referrals: Zack Veloz MD [Primary Care Provider] - Jason Swift MD [Med Staff - Active Staff] - Activity Restrictions/Additional Instructions: Stop taking your hydrochlorothiazide as your sodium is low. Follow-up with your primary care doctor, Dr. Veloz for repeat sodium check next week. Call the brine process operator (you have been given information for Dr. Swift) for follow-up for your eyes as you do have an orbital floor fracture. If you have another episode of syncope please return to the emergency room. Make sure you are resting. Disposition Disposition: Home, Self Care Discharge Date/Time: 05/19/22 16:38
== END 2022-05-19 16:38 | disposition home or self-care (01) ==
PROVIDERS: Emergency Provider Emergency Medicine; PCP Family Medicine; Visit Provider Emergency Medicine
DX: S02.31XA Fracture of orbital floor, right side, initial encounter for closed fracture (principal); W01.198A Fall on same level from slipping, tripping and stumbling with subsequent striking against other object, initial encounter; Y93.01 Activity, walking, marching and hiking; Y92.000 Kitchen of unspecified non-institutional (private) residence as the place of occurrence of the external cause; E87.1 Hypo-osmolality and hyponatremia; E78.5 Hyperlipidemia, unspecified; J81.1 Chronic pulmonary edema; I10 Essential (primary) hypertension; E87.6 Hypokalemia; M79.89 Other specified soft tissue disorders; I25.10 Atherosclerotic heart disease of native coronary artery without angina pectoris; Z79.82 Long term (current) use of aspirin; Z79.899 Other long term (current) drug therapy; Z86.16 Personal history of COVID-19; Z95.1 Presence of aortocoronary bypass graft
CPT/HCPCS: 70450; 71045; 71275; 80053; 81001; 84484; 85025; 85379; 93005; 93971; 96360; 96361; 99285; J7040; Q9967; A4216

== ENCOUNTER → 2022-05-22 | Outpatient (CLI) | payer MEDICARE, SELFPAY ==
[2022-05-22 12:23] LABS: Urine Sodium 86 mmol/L (Not Establ.)
[2022-05-22 12:29] LABS: Osmolality, Urine 455 mOsm/KG
[2022-05-22 12:54] LABS: Osmolality, Serum 274 mOsm/KG (280-301)
[2022-05-22 13:09] LABS: ALB/GLOB Ratio 0.7 RATIO (0.9-2.4); AST(SGOT) 25 U/L (15-37); Alanine Aminotransfer ALT/SGPT 24 U/L (13-56); Albumin, Serum 3.3 g/dL (3.2-5.0); Alkaline Phosphatase 74 U/L (45-117); Anion Gap 5 (5-15); BUN 14 mg/dL (7-18); BUN/Creat Ratio 15.8 RATIO (10-20); Chloride 98 mmol/L (98-107); Creatinine, Serum 0.88 mg/dL (0.55-1.02); EST Glomerular Filtration Rate 65 mL/min (>60); Est Glom Filt Rate - Afr Amer 78 mL/min (>60); Globulin 4.6 g/dL (2.2-4.2); Glucose 111 mg/dL (74-106); Potassium 4.9 mmol/L (3.5-5.1); Protein, Total 7.9 g/dL (6.4-8.2); Sodium Level 129 mmol/L (136-145)
== END | disposition home or self-care (01) ==
LOC: MFPLAB 11:13
PROVIDERS: PCP Family Medicine; Visit Provider Family Medicine
DX: E87.1 Hypo-osmolality and hyponatremia (principal)
CPT/HCPCS: 36415; 80053; 82570; 83930; 83935; 84300

== ENCOUNTER → 2022-05-29 | Outpatient (CLI) | payer MEDICARE, SELFPAY ==
[2022-05-29 12:40] LABS: Osmolality, Serum 289 mOsm/KG (280-301)
[2022-05-29 13:03] LABS: Anion Gap 8 (5-15); BUN 20 mg/dL (7-18); Calcium,Total 8.8 mg/dL (8.5-10.1); Chloride 110 mmol/L (98-107); EST Glomerular Filtration Rate 56 mL/min (>60); Est Glom Filt Rate - Afr Amer 68 mL/min (>60); Glucose 96 mg/dL (74-106); Potassium 3.9 mmol/L (3.5-5.1); Sodium Level 137 mmol/L (136-145)
== END | disposition home or self-care (01) ==
LOC: MFPLAB 10:29
PROVIDERS: PCP Family Medicine; Referring Provider Family Medicine; Visit Provider Family Medicine
DX: E87.1 Hypo-osmolality and hyponatremia (principal)
CPT/HCPCS: 36415; 80048; 83930

== ENCOUNTER → 2022-06-21 | Outpatient (CLI) | payer MEDICARE, SELFPAY | END | disposition home or self-care (01) | LOC: LABSPEC 15:47 | PROVIDERS: PCP Family Medicine; Referring Provider Family Medicine; Visit Provider Family Medicine | DX: R35.0 Frequency of micturition (principal) | CPT/HCPCS: 87077; 87086; 87088; 87186 ==

== ENCOUNTER → 2022-06-27 | Outpatient (CLI) | payer MEDICARE, SELFPAY | END | disposition home or self-care (01) | LOC: LABSPEC 12:07 | PROVIDERS: PCP Family Medicine; Referring Provider Family Medicine; Visit Provider Family Medicine | DX: N39.0 Urinary tract infection, site not specified (principal) | CPT/HCPCS: 87086; 87088 ==

== ENCOUNTER → 2022-09-11 | Outpatient (CLI) | payer MEDICARE, SELFPAY ==
[2022-09-11 10:46] LABS: AST(SGOT) 20 U/L (15-37); Alanine Aminotransfer ALT/SGPT 18 U/L (13-56); Albumin, Serum 3.6 g/dL (3.2-5.0); Alkaline Phosphatase 79 U/L (45-117); Bilirubin, Direct 0.22 mg/dL (0.00-0.30); Cholesterol 144 mg/dL (200); Globulin 3.8 g/dL (2.2-4.2); High Density Lipoprotein 52 mg/dL; Protein, Total 7.4 g/dL (6.4-8.2); Triglycerides 112 mg/dL; Very Low Density Lipoprotein 22 mg/dL (5-40)
== END | disposition home or self-care (01) ==
PROVIDERS: PCP Family Medicine; Referring Provider Internal Medicine Cardiovascular Disease; Visit Provider Internal Medicine Cardiovascular Disease
DX: E78.00 Pure hypercholesterolemia, unspecified (principal)
CPT/HCPCS: 36415; 80061; 80076

== ENCOUNTER → 2023-01-12 | Outpatient (CLI) | payer MEDICARE, SELFPAY ==
--- NOTE | 2023-01-12 12:52 | BI_ITS ---
MAMMOGRAPHY - BILATERAL SCREENING REASON FOR EXAM: Female, 87 years old. Routine annual screening examination. PERTINENT HISTORY: Non-contributory. TECHNIQUE: Digital bilateral breast melissa (3D mammographic acquisition) in the CC and MLO projections. 2-D mediolateral oblique (MLO) and craniocaudad (CC) views of both breasts were obtained. CAD: Full Field Digital Mammography with Computer Added Detection was performed. COMPARISON: Comparison is made with prior study dated September 29, 2020 and June 07, 2018. FINDINGS: Breast Composition: There are scattered areas of fibroglandular density. There are no dominant masses or suspicious calcifications. No other significant abnormalities are identified. There has been no significant change since the prior study. BI/SCRN MAMM (CAD)W/MELISSA BILAT IMPRESSION: Stable bilateral screening mammogram. Yearly follow-up mammogram recommended. (A) ASSESSMENT CATEGORY: BIRADS Category 1: Negative. A letter regarding these results will be sent to the patient by the facility within 30 days. Approximately 10% of breast cancers are not detected by mammography. A normal mammogram should not delay biopsy of a clinically suspicious abnormality. [id number] Electronically Signed: Tarun Lane MD at 13:59 EDT ,
== END | disposition home or self-care (01) ==
LOC: OPBD 12:52
PROVIDERS: PCP Family Medicine; Referring Provider Nurse Practitioner Family; Visit Provider Nurse Practitioner Family
DX: Z12.31 Encounter for screening mammogram for malignant neoplasm of breast (principal)
CPT/HCPCS: 77063; 77067

== ENCOUNTER → 2023-03-20 | Outpatient (CLI) | payer MEDICARE, SELFPAY ==
--- NOTE | 2023-03-20 10:35 | RAD_ITS ---
EXAM: XR BILATERAL HIPS WITH PELVIS WHEN PERFORMED, 2 VIEWS CLINICAL INDICATION: PAIN -- BILAT TECHNIQUE: Frontal view of the bilateral hips with pelvis when performed. COMPARISON: No relevant prior studies available. FINDINGS: BONES/JOINTS: Unremarkable. No displaced fracture. No destructive or sclerotic lesions. Note that overlapping bowel shadows may however obscure fine detail. Sacroiliac joint is unremarkable. No widening of the pubic symphysis. The articular structures are unremarkable. SOFT TISSUES: There are surgical clips in the soft tissues of the left groin. No soft tissue swelling or gas. RAD/Hips B/L min 2 views w/ Pelvis IMPRESSION: No acute findings in the pelvis or bilateral hips. Electronically Signed: Keshawn Vincent MD at 22:15 EDT ,
--- NOTE | 2023-03-20 10:35 | RAD_ITS ---
EXAM: XR RIGHT KNEE, 3 VIEWS CLINICAL INDICATION: PAIN TECHNIQUE: Three views of the right knee. COMPARISON: No relevant prior studies available. FINDINGS: BONES/JOINTS: There is mild narrowing of the medial compartment of the right knee. No acute fracture. No subluxation. Normal alignment. No sclerotic or destructive changes observed. SOFT TISSUES: Unremarkable. No soft tissue swelling or gas. No radiopaque foreign body. RAD/Knee 3 Views IMPRESSION: No acute osseous abnormalities. There are mild degenerative changes with narrowing of the medial knee joint. Electronically Signed: Keshawn Vincent MD at 22:14 EDT ,
--- NOTE | 2023-03-20 10:37 | RAD_ITS ---
EXAM: XR LEFT KNEE, 3 VIEWS CLINICAL INDICATION: PAIN TECHNIQUE: Three views of the left knee. COMPARISON: No relevant prior studies available. FINDINGS: BONES/JOINTS: Unremarkable. No acute fracture. No subluxation. Normal alignment. Preservation of the joint space. No sclerotic or destructive changes observed. SOFT TISSUES: There are multiple surgical clips in the soft tissues over the medial knee. No soft tissue swelling or gas. No radiopaque foreign body. RAD/Knee 3 Views IMPRESSION: No acute findings in the left knee. Electronically Signed: Keshawn Vincent MD at 22:13 EDT ,
== END | disposition home or self-care (01) ==
LOC: MTRAD 10:33
PROVIDERS: PCP Family Medicine; Referring Provider Family Medicine; Visit Provider Family Medicine
DX: M23.8X1 Other internal derangements of right knee (principal); M23.8X2 Other internal derangements of left knee; M25.551 Pain in right hip; M25.552 Pain in left hip
CPT/HCPCS: 73521; 73562

== ENCOUNTER → 2023-04-20 | Outpatient (CLI) | payer MEDICARE, SELFPAY ==
[2023-04-20 10:19] LABS: Microalbumin,Random Urine 23.4 mg/L (NO RANGE EST.); Microalbumin:Creatinine Ratio 23.7 mg/g CRE (<30 mg/g CRE)
[2023-04-20 10:42] LABS: Cholesterol 135 mg/dL (200); High Density Lipoprotein 49 mg/dL; Triglycerides 140 mg/dL; Very Low Density Lipoprotein 28 mg/dL (5-40)
[2023-04-20 10:49] LABS: AST(SGOT) 23 U/L (15-37); Alanine Aminotransfer ALT/SGPT 17 U/L (13-56); Albumin, Serum 3.6 g/dL (3.2-5.0); Alkaline Phosphatase 71 U/L (45-117); Anion Gap 5 (5-15); BUN 20 mg/dL (7-18); BUN/Creat Ratio 17.4 RATIO (10-20); Bilirubin, Direct 0.26 mg/dL (0.00-0.30); Calcium,Total 8.8 mg/dL (8.5-10.1); Chloride 112 mmol/L (98-107); Creatinine, Serum 1.15 mg/dL (0.55-1.02); EST Glomerular Filtration Rate 48 mL/min (>60); Est Glom Filt Rate - Afr Amer 58 mL/min (>60); Globulin 3.7 g/dL (2.2-4.2); Glucose 110 mg/dL (74-106); Protein, Total 7.3 g/dL (6.4-8.2); Sodium Level 140 mmol/L (136-145); Thyroid Stim Hormone (TSH) 2.27 uIU/mL (0.358-3.74)
== END | disposition home or self-care (01) ==
LOC: LAB 09:20
PROVIDERS: PCP Family Medicine; Referring Provider Nurse Practitioner Gerontology; Visit Provider Nurse Practitioner Gerontology
DX: I10 Essential (primary) hypertension (principal); I25.10 Atherosclerotic heart disease of native coronary artery without angina pectoris; E78.5 Hyperlipidemia, unspecified
CPT/HCPCS: 36415; 80053; 80061; 82043; 82248; 82570; 84443

== ENCOUNTER → 2023-05-14 | Outpatient (CLI) | payer MEDICARE, SELFPAY ==
--- NOTE | 2023-05-14 11:17 | MRI_ITS ---
HISTORY: Right hearing loss-attention IAC. TECHNIQUE: Multiplanar and multisequence MR images of the brain and internal auditory canals were obtained without before and after the intravenous administration of 10 cc Clariscan. 418 images. COMPARISON: CT 05/19/2022. FINDINGS: BRAIN PARENCHYMA: Moderate foci and zones of increased T2 FLAIR signal in the bilateral cerebral white matter. Chronic left parietal lacunar infarct. Prominent perivascular space in the left basal ganglia. No abnormal focus of restricted diffusion. INTERNAL AUDITORY CANALS: No abnormal enhancement along the 7th or 8th cranial nerve complexes. No cerebellopontine angle mass. CSF SPACES: Mild generalized volume loss. No significant midline shift or other mass effect. Chronic mildly low-lying cerebellar tonsils. No extra-axial fluid collection. VASCULAR SYSTEM: Major intracranial flow voids are maintained. OTHER: Trace fluid in the left mastoid air cells. No significant air fluid levels in the paranasal sinuses. Symmetric orbital contents. MRI/Brain W/WO Contrast IMPRESSION: Unremarkable examination of the internal auditory canals. No evidence for enhancing intracranial mass or acute infarct. Moderate chronic white matter changes. Electronically Signed: Damaris Elliott MD at 9:51 EDT ,
== END | disposition home or self-care (01) ==
LOC: MRI 10:54
PROVIDERS: PCP Family Medicine; Referring Provider Otolaryngology; Visit Provider Otolaryngology
DX: H91.91 Unspecified hearing loss, right ear (principal)
CPT/HCPCS: 70553; A9575

== ENCOUNTER → 2023-06-19 | Outpatient (CLI) | payer MEDICARE, SELFPAY ==
--- NOTE | 2023-06-19 11:02 | ART_ITS ---
Reason For Study: PVD Procedure A bilateral lower extremity continuous wave Doppler with analog waveform analysis,segmental pressures,and ankle brachial indexes with exercise. Left Segmental Pressures Left brachial= 173mmHg. Left posterior tibial artery = 176mmHg. Left dorsalis pedis artery = 166mmHg. Left digit = 125 mmHg. The left posterior tibial artery waveforms are triphasic. The left dorsalis pedis waveforms are triphasic. Right Segmental Pressures Right brachial= 173mmHg. Right posterior tibial artery = 192mmHg. Right dorsalis pedis artery = 149mmHg. Right digit = 116 mmHg. The right posterior tibial artery waveforms are triphasic. The right dorsalis pedis waveforms are triphasic. Indices The right ankle brachial index by the posterior tibial artery is 1.11. The right ankle brachial index by the dorsalis pedis is 0.86. The right digital-brachial index is 0.67. The right post exercise ankle brachial index is 1.15. The left ankle brachial index by the posterior tibial artery is 1.02. The left ankle brachial index by the dorsalis pedis is 0.96. The left digital-brachial index is 0.72. The left post exercise ankle brachial index is 1.16. VL/Lower Ext Art Exam w/ Exercise Interpretation Summary Right [place] 1.11, normal. Doppler/PVR waveforms of the right leg normal at rest. 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 Left [place] 1.02, normal. Doppler/PVR waveforms of the left leg normal at rest. TB I diminished, pedal/digit disease vs spasm. Left lower extremity exhibits normal response to exercise. Ordering Physician: Karla London Referring Physician: Zack Veloz MD Performed By: Gerald Sanchez RVT
== END | disposition home or self-care (01) ==
LOC: CVS 11:00
PROVIDERS: PCP Family Medicine; Referring Provider Physician Assistant; Visit Provider Physician Assistant
DX: I73.9 Peripheral vascular disease, unspecified (principal)
CPT/HCPCS: 93924

== ENCOUNTER 2023-08-12 12:56 | Emergency (ER) | payer MEDICARE, SELFPAY ==
[2023-08-12 12:57] VITALS: BP 164/69; PULSE 63; RESP 18; TEMP 36.2; O2SAT 99; BMI 23.8
--- NOTE | 2023-08-12 13:51 | EDS_ITS ---
HPI History of Present Illness HPI Narrative: Patient presents with redness and swelling to her lower legs that has been constant for the past 2-1/2 weeks. Patient states it is gradually getting worse. Patient states she was prescribed a cream by her shingle sawyer to apply to her lower legs. Patient states that after she applied this her legs became red and swollen. Patient states her pain is aching but sharp at times. Patient states nothing makes it better and nothing makes it worse. Patient states she was also given a prescription for doxycycline to cover for any cellulitis. Patient states she has been taking this with no improvement. Patient denies any fevers or chills. Patient states that her shingle sawyer told her that if the doxycycline was not helping she should go to the emergency department for evaluation. 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 Bilateral lower extremity edema COVID Encounter for long-term current use of high risk medication Essential (primary) hypertension Family hx of colon cancer Hemorrhoids Herpes simplex labialis HLD (hyperlipidemia) Internal prolapsed hemorrhoids 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 Nonrheumatic mitral valve insufficiency Rectal bleeding Rectal bleeding Home Medications aspirin 81 mg tablet,delayed release (Adult Low Dose Aspirin) 81 mg PO DAILY 03/04/18 [History Last Taken 05/19/22] nitroglycerin 0.4 mg sublingual tablet (Nitrostat) 0.4 mg sublingual Q5M PRN Cardiac Arrythmia 03/04/18 [History Last Taken Unknown] calcium carbonate 600 mg-vitamin D3 12.5 mcg (500 unit) capsule (Calcium 600 with Vitamin D3) 1 cap PO DAILY 09/02/21 [History Last Taken Unknown] folic acid 400 mcg tablet 0.8 mg PO DAILY 05/19/22 [History Last Taken 05/19/22] rosuvastatin 40 mg tablet 40 mg PO QHS 09/13/22 [History Last Taken Unknown] amlodipine 2.5 mg tablet See Rx Instructions .Route .COMPLEX #90 tabs 03/28/23 [Rx Last Taken Unknown] ramipril 10 mg capsule 10 mg PO BID heart #180 caps 04/25/23 [Rx Last Taken Unknown] acetazolamide 125 mg tablet 125 mg PO BID 04/30/23 [History Last Taken Unknown] metoprolol tartrate 25 mg tablet 25 mg PO BID bp,heart #180 tabs 07/19/23 [Rx Last Taken Unknown] Allergy/AdvReac Type Severity Reaction Status Date / Time No Known Allergies Allergy Verified 06/12/23 11:10 Family History Father No problems noted. Mother CAD (coronary artery disease) Asthma Brother CAD (coronary artery disease) Cancer Surgical History H/O: hemorrhoidectomy History of coronary artery bypass surgery (~07/26/07) Social History Smoking Status: Never smoker alcohol intake: current alcohol intake frequency: holidays/special occasions only substance use type: does not use caffeine: No what type of physical activity do you participate in: walking frequency: daily duration: 45-60 minutes/day ROS ROS ED Constitutional Constitutional ED: Denies chills or fever(s) Eyes Eyes: Denies blurry vision or change in vision ENT ENT ED: Reports rhinorrhea; Denies sore throat Cardiovascular Cardiovascular: Denies chest pain or palpitations Respiratory/Chest Respiratory/Chest: Denies cough or dyspnea Gastrointestinal Gastrointestinal: Denies nausea or vomiting Genitourinary Genitourinary ED: Reports urinary frequency; Denies dysuria or hematuria Musculoskeletal Musculoskeletal: Denies back pain or neck pain Integumentary Reports rash; Denies abscess Neurologic Neurologic: Denies headache(s) or weakness Allergic/Immunologic Allergic/Immunologic ED: Denies mouth swelling or urticaria EXAM Physical Exam Const Vital Signs: 08/12/23 12:57 08/12/23 13:40 Temperature 97.1 F L Temperature Source Temporal Pulse Rate 63 Respiratory Rate 18 Respiratory Effort Normal Non-Labored Respiratory Pattern Normal Blood Pressure 164/69 H Blood Pressure Mean 100 Pulse Ox 99 Oxygen Delivery Method Room Air Positive well nourished and well developed General Appearance ED: well developed and NAD HEENT Reports moist mucous membranes Resp normal respiratory effort and clear to auscultation bilaterally Cardio regular rate and regular rhythm Neuro oriented x3, CN's II-XII intact bilaterally, moves all extremities and no sensory deficits noted Sensorium / Orientation: alert Motor Exam: strength 5/5 throughout Psych mental status grossly normal Skin no wounds Skin Narrative: There is an erythematous macular rash over the lower legs bilaterally. There are no vesicles or pustules. There are no petechia noted. There is no warmth noted. There is no discharge or drainage. There is no sloughing of the skin. There is no involvement of the palms or soles. MDM MDM MDM Narrative Medical decision making narrative: Differential diagnosis includes vasculitis, contact dermatitis from the cream that she applied to her lower legs, and cellulitis. CBC will be obtained to assess for leukocytosis, anemia, and thrombocytopenia. Basic metabolic profile will be obtained to assess for electrolyte abnormality and renal function. Lab Data Attestation: I reviewed the patient's lab results. Lab results narrative: CBC was reviewed. There is a mild anemia with a hemoglobin of 11.7. White blood cell count is normal. Platelets are normal. Basic metabolic profile was reviewed and was essentially within normal limits. Labs: Laboratory Results - last 24 hr 08/12/23 13:45 WBC 6.1 RBC 3.77 L Hgb 11.7 L Hct 38.2 MCV 101.3 H MCH 31.0 MCHC 30.6 L RDW Std Deviation 49.9 H RDW Coeff of John 13.3 Plt Count 331 MPV 9.9 Immature Gran % (Auto) 0.300 Neut % (Auto) 65.9 Lymph % (Auto) 24.0 [place] % (Auto) 7.3 Eos % (Auto) 2.0 Baso % (Auto) 0.5 Absolute Neuts (auto) 4.0 Absolute Lymphs (auto) 1.47 Nucleated RBC % 0 Sodium 137 Potassium 3.4 L Chloride 112 H Carbon Dioxide 21.0 Anion Gap 4 L BUN 21 H Creatinine 1.10 H Estim Creat Clear Calc 29.04 Est GFR (MDRD) Af Amer 61 Est GFR (MDRD) Non-Af 50 L BUN/Creatinine Ratio 19.1 Glucose 141 H Calcium 8.7 Treatment and Re-Evaluation Narrative: Patient is feeling better on reevaluation. Patient was advised of her findings. I do not feel this is from a cellulitis. Patient was advised that this could be contact dermatitis from the cream that she applied to her legs. This does not appear to be a vasculitis either. Patient was instructed to follow-up with her shingle sawyer in 5 to 7 days. Patient was instructed to return if worse in any way. Patient understood and was agreeable with the plan. All questions were answered. Discharge Plan Triage Chief Complaint: Edema ED Provider: Zack Gonzalez Dx/Rx/DC Orders Clinical Impression: Contact dermatitis Instructions: ED Contact Dermatitis Prescriptions: No Action aspirin [Adult Low Dose Aspirin] 81 mg tablet,delayed release (DR/EC) 81 mg PO DAILY Patient Comments: stop preop 5 days as directed nitroglycerin [Nitrostat] 0.4 mg tablet, sublingual 0.4 mg SUBLINGUAL Q5M PRN (Reason: Cardiac Arrythmia) Patient Comments: X 3 calcium carbonate-vitamin D3 [Calcium 600 with Vitamin D3] 600 mg(1,500mg) - 500 unit capsule 1 cap PO DAILY rosuvastatin 40 mg tablet 40 mg PO QHS acetazolamide 125 mg tablet 125 mg PO BID folic acid 400 mcg tablet 0.8 mg PO DAILY amlodipine 2.5 mg tablet See Rx Instructions .ROUTE .COMPLEX Qty: 90 3RF Dose Instruction: Take 1 tablet by mouth once daily Rx Instructions: Take 1 tablet by mouth once daily ramipril 10 mg capsule 10 mg PO BID Qty: 180 3RF Rx Instructions: Take 1 capsule by mouth twice daily metoprolol tartrate 25 mg tablet 25 mg PO BID Qty: 180 3RF Primary Care Provider: Zack Veloz Referrals: Zack Veloz MD [Primary Care Provider] - 5-7 Days Disposition Disposition: Home, Self Care
[2023-08-12 13:53] LABS: Absolute Lymphocyte Count 1.47 X10^3/uL (0.83-4.51); Basophil# 0.03 X10^3/uL; Basophil% 0.5 % (0-1); Eosinophil# 0.12 X10^3/uL; Hematocrit 38.2 % (37-47); Hemoglobin 11.7 g/dL (12.0-15.0); Lymphocyte # 1.47 X10^3/ul (0.83-4.51); Mean Corp Hgb Conc 30.6 g/dL (32-36); Mean Corpuscular Volume 101.3 fL (81-99); Mean Platelet Vol. 9.9 fl (6.2-12.0); Monocyte# 0.45 X10^3/uL; Monocyte% 7.3 % (0-10); NRBC Flagged by Analyzer 0 % (0-5); Neutrophil # 4.04 X10^3/uL (2.7-7.7); Neutrophil % 65.9 % (47-70); Platelet Count 331 K/mm3 (150-450); RBC Distribution Width CV 13.3 % (11.6-14.6); RBC Distribution Width SD 49.9 fl (35.1-43.9); Red Blood Count 3.77 M/mm3 (4.2-5.4); White Blood Count 6.1 K/mm3 (4.4-11.0)
[2023-08-12 14:06] LABS: Anion Gap 4 (5-15); BUN 21 mg/dL (7-18); BUN/Creat Ratio 19.1 RATIO (10-20); Calcium,Total 8.7 mg/dL (8.5-10.1); Chloride 112 mmol/L (98-107); EST Glomerular Filtration Rate 50 mL/min (>60); Est Glom Filt Rate - Afr Amer 61 mL/min (>60); Estimated Creatinine Clearance 29.04 ml/min; Glucose 141 mg/dL (74-106); Potassium 3.4 mmol/L (3.5-5.1); Sodium Level 137 mmol/L (136-145)
[2023-08-12 15:50] VITALS: RESP 16
== END 2023-08-12 15:51 | disposition home or self-care (01) ==
PROVIDERS: Emergency Provider Emergency Medicine; PCP Family Medicine; Visit Provider Emergency Medicine
DX: L25.9 Unspecified contact dermatitis, unspecified cause (principal); I25.10 Atherosclerotic heart disease of native coronary artery without angina pectoris; I10 Essential (primary) hypertension; E78.5 Hyperlipidemia, unspecified; Z79.82 Long term (current) use of aspirin; Z79.899 Other long term (current) drug therapy; Z86.16 Personal history of COVID-19
CPT/HCPCS: 80048; 85025; 99283; A4216

== ENCOUNTER → 2023-12-15 | Outpatient (CLI) | payer MEDICARE, SELFPAY ==
[2023-12-15 09:59] LABS: AST(SGOT) 26 U/L (15-37); Alanine Aminotransfer ALT/SGPT 21 U/L (13-56); Albumin, Serum 3.7 g/dL (3.2-5.0); Alkaline Phosphatase 87 U/L (45-117); Bilirubin, Direct 0.22 mg/dL (0.00-0.30); Cholesterol 159 mg/dL (200); Globulin 3.5 g/dL (2.2-4.2); High Density Lipoprotein 54 mg/dL; Protein, Total 7.2 g/dL (6.4-8.2); Triglycerides 143 mg/dL; Very Low Density Lipoprotein 29 mg/dL (5-40)
== END | disposition home or self-care (01) ==
LOC: LAB 09:10
PROVIDERS: PCP Family Medicine; Referring Provider Nurse Practitioner Gerontology; Visit Provider Nurse Practitioner Gerontology
DX: E78.00 Pure hypercholesterolemia, unspecified (principal)
CPT/HCPCS: 36415; 80061; 80076

== ENCOUNTER → 2024-01-31 | Outpatient (CLI) | payer MEDICARE, SELFPAY ==
--- NOTE | 2024-01-31 10:03 | BI_ITS ---
MAMMOGRAPHY - BILATERAL SCREENING REASON FOR EXAM: Female, 88 years old. Routine annual screening examination. PERTINENT HISTORY: Non-contributory. TECHNIQUE: Digital bilateral breast melissa (3D mammographic acquisition) in the CC and MLO projections. 2-D mediolateral oblique (MLO) and craniocaudad (CC) views of both breasts were obtained. CAD: Full Field Digital Mammography with Computer Added Detection was performed. COMPARISON: Comparison is made with prior study dated January 12, 2023 and September 29, 2020. FINDINGS: Breast Composition: There are scattered areas of fibroglandular density. There are no dominant masses or suspicious calcifications. No other significant abnormalities are identified. There has been no significant change since the prior study. BI/SCRN MAMM (CAD)W/MELISSA BILAT IMPRESSION: Stable bilateral screening mammogram. Yearly follow-up mammogram recommended. (A) ASSESSMENT CATEGORY: BIRADS Category 1: Negative. A letter regarding these results will be sent to the patient by the facility within 30 days. Approximately 10% of breast cancers are not detected by mammography. A normal mammogram should not delay biopsy of a clinically suspicious abnormality. [id number] Electronically Signed: Tarun Lane MD at 11:36 EDT ,
== END | disposition home or self-care (01) ==
LOC: OPBI 10:02
PROVIDERS: PCP Family Medicine; Referring Provider Family Medicine; Visit Provider Family Medicine
DX: Z12.31 Encounter for screening mammogram for malignant neoplasm of breast (principal)
CPT/HCPCS: 77063; 77067

== ENCOUNTER → 2024-03-14 | Outpatient (CLI) | payer MEDICARE, SELFPAY ==
[2024-03-14 17:53] LABS: Absolute Lymphocyte Count 2.13 X10^3/uL (0.83-4.51); Absolute Neutrophil Count 4.2 X10^3/uL (2.0-7.7); Basophil# 0.03 X10^3/uL; Basophil% 0.4 % (0-1); Eosinophil# 0.17 X10^3/uL; Eosinophils% 2.4 % (0-5); Hematocrit 40.3 % (37-47); Hemoglobin 12.7 g/dL (12.0-15.0); Lymphocyte # 2.13 X10^3/ul (0.83-4.51); Lymphocyte % 29.7 % (19-41); Mean Corp Hgb Conc 31.5 g/dL (32-36); Mean Corpuscular Hgb 31.4 pg (27.0-32.0); Mean Corpuscular Volume 99.5 fL (81-99); Mean Platelet Vol. 10.5 fl (6.2-12.0); Monocyte% 8.4 % (0-10); NRBC Flagged by Analyzer 0 % (0-5); Neutrophil # 4.23 X10^3/uL (2.7-7.7); Neutrophil % 58.8 % (47-70); Platelet Count 306 K/mm3 (150-450); RBC Distribution Width CV 13.2 % (11.6-14.6); RBC Distribution Width SD 48.4 fl (35.1-43.9); RET-HE 34.6 pg (30-35); Red Blood Count 4.05 M/mm3 (4.2-5.4); Reticulocyte Count 1.03 % (0.5-1.5); White Blood Count 7.2 K/mm3 (4.4-11.0)
[2024-03-14 18:27] LABS: ALB/GLOB Ratio 1.1 RATIO (0.9-2.4); AST(SGOT) 26 U/L (15-37); Alanine Aminotransfer ALT/SGPT 28 U/L (13-56); Albumin, Serum 3.9 g/dL (3.2-5.0); Alkaline Phosphatase 79 U/L (45-117); Anion Gap 8 (5-15); BUN 23 mg/dL (7-18); BUN/Creat Ratio 21.5 RATIO (10-20); CRP < 2.90 mg/L (0.0-3.0); Calcium,Total 8.7 mg/dL (8.5-10.1); Chloride 109 mmol/L (98-107); Creatinine, Serum 1.07 mg/dL (0.55-1.02); EST Glomerular Filtration Rate 52 mL/min (>60); Est Glom Filt Rate - Afr Amer 62 mL/min (>60); Ferritin 152 ng/mL (8-252); Globulin 3.6 g/dL (2.2-4.2); Glucose 93 mg/dL (74-106); Iron 72 ug/dL (50-170); Iron Binding Capacity,Total 322 ug/dL (250-450); PERCENT IRON SATURATION 22.4 % (15.0-55.0); Potassium 3.8 mmol/L (3.5-5.1); Protein, Total 7.5 g/dL (6.4-8.2); Sodium Level 138 mmol/L (136-145)
== END | disposition home or self-care (01) ==
LOC: MTLAB 16:27
PROVIDERS: PCP Family Medicine; Referring Provider Family Medicine; Visit Provider Family Medicine
DX: K62.5 Hemorrhage of anus and rectum (principal); R10.31 Right lower quadrant pain; I10 Essential (primary) hypertension
CPT/HCPCS: 36415; 80053; 82728; 83540; 83550; 85025; 85045; 86140

== ENCOUNTER → 2024-06-11 | Outpatient (CLI) | payer MEDICARE, SELFPAY ==
[2024-06-11 11:27] LABS: AST(SGOT) 28 U/L (15-37); Alanine Aminotransfer ALT/SGPT 23 U/L (13-56); Albumin, Serum 3.5 g/dL (3.2-5.0); Alkaline Phosphatase 71 U/L (45-117); Cholesterol 144 mg/dL (200); Globulin 3.8 g/dL (2.2-4.2); High Density Lipoprotein 52 mg/dL; Protein, Total 7.3 g/dL (6.4-8.2); Triglycerides 114 mg/dL; Very Low Density Lipoprotein 23 mg/dL (5-40)
== END | disposition home or self-care (01) ==
LOC: LAB 10:04
PROVIDERS: PCP Family Medicine; Referring Provider Nurse Practitioner Gerontology; Visit Provider Nurse Practitioner Gerontology
DX: E78.00 Pure hypercholesterolemia, unspecified (principal)
CPT/HCPCS: 36415; 80061; 80076

== ENCOUNTER → 2024-07-02 | Outpatient (CLI) | payer MEDICARE, SELFPAY ==
--- NOTE | 2024-07-02 10:41 | ECHOD_ITS ---
Reason For Study: MURMUR Procedure This was a 2D Doppler, Color Flow transthoracic echocardiogram. Exam performed in department. Left Ventricle Normal LV size. Left ventricular systolic function is normal. The left ventricular ejection fraction is 55 %. Stage 1 diastolic dysfunction. No regional wall motion abnormalities noted. Right Ventricle Normal RV size. Normal systolic function. Atria Normal left atrium. Normal right atrium. Mitral Valve There is mild mitral annular calcification. Mild (1+) eccentric mitral valve insufficiency. Tricuspid Valve Normal tricuspid valve. Mild (1+) tricuspid valve insufficiency. Pulmonary artery systolic pressure is 30 mmHg. Aortic Valve Trisinus/trileaflet aortic valve. Peak aortic valve gradient 16 mmHg. Mean aortic valve gradient 9 mmHg. Pulmonic Valve Normal pulmonic valve. Great Vessels Normal aortic root. The pulmonary artery is normal size. Inferior vena cava collapse with respiration. Pericardium/Pleural No pericardial effusion. MMode/2D Measurements & Calculations LVIDd: 3.8 cm IVSd: 1.0 cm Ao root diam: 3.1 cm LVIDs: 2.4 cm LVPWd: 0.86 cm RVDd: 2.6 cm FS: 37.3 % LAV(MOD-bp): 35.2 ml LVAd ap4: 18.4 cm2 LVAd ap2: 19.3 cm2 LAV(MOD-bp) Indexed: 22.9 ml/m2 LVLd ap4: 5.9 cm LVLd ap2: 6.3 cm LAV(MOD-sp2): 38.4 ml EDV(MOD-sp4): 47.4 ml EDV(MOD-sp2): 50.7 ml LAV(MOD-sp4): 28.3 ml EDV(sp4-el): 48.9 ml EDV(sp2-el): 50.0 ml LVAs ap4: 12.2 cm2 LVAs ap2: 11.4 cm2 LVLs ap4: 5.4 cm LVLs ap2: 5.2 cm ESV(MOD-sp4): 23.5 ml ESV(MOD-sp2): 21.6 ml ESV(sp4-el): 23.3 ml ESV(sp2-el): 21.1 ml EF(MOD-sp4): 50.4 % EF(MOD-sp2): 57.4 % EF(sp4-el): 52.3 % SV(MOD-sp4): 23.9 ml SV(MOD-sp2): 29.1 ml SV(sp4-el): 25.6 ml LA dimension(2D): 3.6 cm LA A4 area: 11.8 cm2 RA A4 area: 10.4 cm2 TAPSE: 1.5 cm Time Measurements MV dec time: 0.18 sec Doppler Measurements & Calculations MV E max emory: 63.4 cm/sec Lat Peak E' Meory: 6.3 cm/sec Med Peak E' Emory: 5.7 cm/sec MV A max emory: 67.1 cm/sec E/E' lat: 10.0 E/E' med: 11.1 MV E/A: 0.94 MV V2 max: 71.4 cm/sec MV P1/2t max emory: 78.4 cm/sec Ao V2 max: 199.1 cm/sec MV max P.0 mmHg MV P1/2t: 50.2 msec Ao max P.9 mmHg MV V2 mean: 32.4 cm/sec MV dec slope: 457.9 cm/sec2 Ao V2 mean: 147.0 cm/sec MV mean P.55 mmHg Ao mean P.4 mmHg MV V2 VTI: 20.2 cm MVA(P1/2t): 4.4 cm2 Ao V2 VTI: 46.4 cm AV (velocity ratio): 0.38 LV V1 max: 71.8 cm/sec PA V2 max: 163.3 cm/sec PI dec slope: 103.9 cm/sec2 LV V1 max P.1 mmHg PA V2 mean: 56.7 cm/sec LV V1 mean P.2 mmHg LV V1 mean: 52.2 cm/sec LV V1 VTI: 17.5 cm TR max emory: 258.7 cm/sec TR max P.8 mmHg ECHO/Echo Complete Interpretation Summary Normal LV size. Left ventricular systolic function is normal. The left ventricular ejection fraction is 55 %. Stage 1 diastolic dysfunction. Mean aortic valve gradient 9 mmHg. Mild (1+) eccentric mitral valve insufficiency. Ordering Physician: Rajendra Duarte Referring Physician: Zack Veloz Performed By: Ny Montanez, CHAKA, RVT
== END | disposition home or self-care (01) ==
LOC: CVS 10:39
PROVIDERS: PCP Family Medicine; Referring Provider Internal Medicine Cardiovascular Disease; Visit Provider Internal Medicine Cardiovascular Disease
DX: I06.2 Rheumatic aortic stenosis with insufficiency (principal); R01.1 Cardiac murmur, unspecified
CPT/HCPCS: 93306

== ENCOUNTER → 2024-08-13 | Outpatient (CLI) | payer MEDICARE, SELFPAY | END | disposition home or self-care (01) | LOC: MFPLAB 16:04 | PROVIDERS: PCP Family Medicine; Referring Provider Family Medicine; Visit Provider Family Medicine | DX: R35.0 Frequency of micturition (principal) | CPT/HCPCS: 87077; 87086; 87088; 87186 ==

== ENCOUNTER 2024-08-29 11:34 | Outpatient (CLI) | payer MEDICARE, SELFPAY | END 2024-08-29 23:59 | disposition home or self-care (01) | LOC: LABSPEC 11:35 | PROVIDERS: PCP Family Medicine; Referring Provider Family Medicine; Visit Provider Family Medicine | DX: R19.7 Diarrhea, unspecified (principal) | CPT/HCPCS: 87493 ==

== ENCOUNTER → 2024-09-04 | Outpatient (CLI) | payer MEDICARE, SELFPAY ==
[2024-09-04 10:55] LABS: Mucous, Urine 0 SEEN /hpf (<or=2+)
[2024-09-04 12:36] LABS: Color, Urine Yellow (Yellow); Glucose, Dipstick Normal (Normal); Ketone-Dipstick Negative (Negative); Leukocyte Esterase-Dipstick 500 /ul (Negative); Nitrite-Dipstick Negative (Negative); Occult Blood-Urine 25 /ul (Negative); Protein-Dipstick 15 mg/dl (Negative); Urine Bilirubin Dipstick Negative (Negative); Urine Clarity Cloudy (Clear); Urine Urobilinogen Normal (Normal)
[2024-09-04 12:44] LABS: Bacteria RARE /hpf (None Seen); Red Blood Cells-Urine 0-5 SEEN /hpf (0-5); Squamous Epithelial Cells - UA 0-5 SEEN /hpf (5-10); White Blood Cells 50-100 SEEN /hpf (0-5)
== END | disposition home or self-care (01) ==
LOC: LABSPEC 10:53
PROVIDERS: PCP Family Medicine; Visit Provider Family Medicine
DX: R35.0 Frequency of micturition (principal)
CPT/HCPCS: 81001; 87077; 87086; 87088; 87186

== ENCOUNTER → 2025-02-05 | Outpatient (CLI) | payer MEDICARE, SELFPAY ==
--- NOTE | 2025-02-05 15:25 | BD_ITS ---
PROCEDURE: DEXA BONE DENSITY STUDY 02/05/2025 REASON FOR EXAM: F, age 89 y/o . Postmenopausal. TECHNIQUE: DXA scan of sites with data reported below. Scanner utilized: [employer] C. REFERENCE LINKS: [facility] [place] COMPARISON: 09/29/2020 FINDINGS: BMD and T-SCORES Lumbar spine: 0.848 g/cm2, T-score -1.8 Levels: L1 through L4 Change from prior: . Left femoral neck: 0.617 g/cm2, T-score -2.1 Femoral neck comparison data not recommended for monitoring change. Prior T-score Left total hip: 0.599 g/cm2, T-score -2.8 Change from prior: . Right femoral neck: 0.541 g/cm2, T-score -2.8 Femoral neck comparison data not recommended for monitoring change. Prior T-score Right total hip: 0.572 g/cm2, T-score -3.0 Change from prior: . Left 1/3 radius: g/cm2, T-score Change from prior: . Right 1/3 radius: g/cm2, T-score Change from prior: . The World Health Organization has defined the following categories based on bone density: Normal bone density: T-score equal to or greater than -1.0 Osteopenia: T-score between -1.0 and -2.5 Osteoporosis: T-score equal to or less than -2.5 FRAX (or Comparable) Fracture Risk Assessment: 10 Year Probability of Fracture: Major Osteoporotic Fracture: 23% Hip Fracture: 8.1% (Note: FRAX is not to be reported in setting of normal range bone density, osteoporosis on DEXA, known history of osteoporosis, prior osteoporotic hip or vertebral fracture, or for any patient undergoing pharmacological treatment for bone loss.) The National Osteoporosis Foundation (NOF) recommends pharmacological treatment for patients with a FRAX 10-year risk of 3% or higher for a hip fracture, or 20% or higher for a major osteoporotic fracture, to prevent osteoporosis and reduce fracture risk. The patient meet the pharmacological treatment recommendations for prevention of osteoporosis. BD/Dexa Bone Density Study IMPRESSION: OSTEOPOROSIS. Recommend follow-up as clinically warranted. Reading Location: [id number]
--- NOTE | 2025-02-05 15:25 | BI_ITS ---
EXAM: SCRN MAMM (CAD)W/MELISSA BILAT DATE: 02/05/2025 CLINICAL HISTORY: F, Age 89 y/o , SCREENING No family history. BREAST CANCER RISK ASSESSMENT: Not assessed. TECHNIQUE: Bilateral screening digital breast tomosynthesis with 2D and 3D images. Computer aided detection. COMPARISON: Prior exam(s) dated January 31 2024.. FINDINGS: TISSUE DENSITY: The breast tissue is composed of scattered area of fibroglandular density. Bilateral Breast Mammographic Findings: No significant masses, calcifications or other abnormalities are identified. No suspicious masses, areas of developing architectural distortion, or suspicious calcifications. There has been no significant interval change. BI/SCRN MAMM (CAD)W/MELISSA BILAT IMPRESSION: OVERALL FINAL ASSESSMENT: BIRADS 1 NEGATIVE RECOMMENDATION: Routine annual follow-up in 1 Year A letter with findings and recommendations will be mailed to the patient. Reading Location: [place] [id number]
== END | disposition home or self-care (01) ==
LOC: OPBD 15:23
PROVIDERS: PCP Family Medicine; Referring Provider Family Medicine; Visit Provider Family Medicine
DX: Z12.31 Encounter for screening mammogram for malignant neoplasm of breast (principal); Z78.0 Asymptomatic menopausal state; M81.0 Age-related osteoporosis without current pathological fracture; Z13.820 Encounter for screening for osteoporosis
CPT/HCPCS: 77063; 77067; 77080

== ENCOUNTER → 2025-07-29 | Outpatient (CLI) | payer MEDICARE, SELFPAY ==
[2025-07-29 10:33] LABS: AST(SGOT) 30 U/L (<=31); Alanine Aminotransfer ALT/SGPT 15 U/L (<=34); Albumin, Serum 4.2 g/dL (3.4-4.8); Alkaline Phosphatase 60 U/L (35-104); Bilirubin, Direct 0.41 mg/dL (0.00-0.30); Cholesterol 140 mg/dL (<=200); Globulin 3.1 g/dL (2.2-4.2); Low Density Lipoprotein Calc. 58 mg/dL; Triglycerides 114 mg/dL; Very Low Density Lipoprotein 23 mg/dL (5-40); cholesterol:hdl ratio screen 2.38
== END | disposition home or self-care (01) ==
LOC: LAB 09:21
PROVIDERS: PCP Family Medicine; Referring Provider Nurse Practitioner Gerontology; Visit Provider Nurse Practitioner Gerontology
DX: E78.00 Pure hypercholesterolemia, unspecified (principal)
CPT/HCPCS: 36415; 80061; 80076